=== PATIENT | male | born 1950 | race Caucasian/White ===

== ENCOUNTER 2024-10-22 06:34 | Emergency (ER) | payer OTHER, MEDICARE, SELFPAY ==
[2024-10-22 06:49] VITALS: BP 133/90; PULSE 85; RESP 16; TEMP 36.4; O2SAT 96; BMI 30.7
--- NOTE | 2024-10-22 07:16 | ED_ITS ---
HPI - General Adult General Chief complaint: Back Injury/Pain Stated complaint: back ache Time Seen by Provider: 10/22/24 06:59 History of Present Illness HPI narrative: 3 weeks of back pain, thinks he maybe twisted it wrong. [place]ray and Medrol dose pack. pain has gotten worse, worse with bending and moving. denies falls, does not radiate down legs. mostly in the R lower but occasionally shoots across to the L. patient with hx of parkinsons. 73-year-old man presenting to the emergency department with concern of low back pain. Does have a history of Parkinson's. Has been trying acetaminophen and Voltaren gel. Lidocaine patches. Just completed a course of what sounds like a Medrol Dosepak. It seems to radiate across the low back. Symptoms do not radiate into the buttock or down his legs. Worse with movement. Sitting for too long images as a get up and move. What he is mentioning frequently is a sudden intense pulse of pain. No hematuria or dysuria. No trauma. Related Data Home Medications ?Medication ?Instructions ?Recorded ?Confirmed atorvastatin 20 mg tablet 20 mg PO DAILY 10/22/24 10/22/24 carbidopa ER 48.75 mg-levodopa 195 3 cap PO TID 10/22/24 10/22/24 mg capsule,extended release carbidopa ER 50 mg-levodopa 200 mg 1 tab PO QHS 10/22/24 10/22/24 tablet,extended release chlorthalidone 12.5 mg tablet 12.5 mg PO DAILY 10/22/24 10/22/24 docusate sodium 100 mg capsule 100 mg PO DAILY 10/22/24 10/22/24 lisinopril 20 mg tablet 20 mg PO DAILY 10/22/24 10/22/24 melatonin 3 mg capsule 3 mg PO HS PRN 10/22/24 10/22/24 metoprolol succinate 50 mg capsule 50 mg PO DAILY 10/22/24 10/22/24 sprinkle, ext. release 24 hr tizanidine 2 mg capsule 2 mg PO QHS PRN 10/22/24 10/22/24 Allergies Allergy/AdvReac Type Severity Reaction Status Date / Time No Known Drug Allergies Allergy Verified 10/22/24 06:53 Review of Systems Status of ROS: Reports: 6 or more systems reviewed and unremarkable except as noted in History and below [facility] Social History Non-prescribed substance use: denies use Exam Narrative: Exam Narrative: Pleasant. Little tremulous. Restless. Breathing easily. No deformity to back. Abdomen is soft nontender. Negative straight leg raise. Well-perfused peripherally without edema. Massiel's negative. Tenderness described in the area of the right SI joint and across. Heart in regular rate. Demonstrating intermittent spasms of pain. Const: Vital Signs, click to edit/add: Vital Signs - 24 hr 10/22/24 06:49 Temperature 97.6 F Pulse Rate [Pulse Oximeter] 85 Respiratory Rate 16 Blood Pressure [Ri t Upper Arm] 133/90 H Pulse Oximetry 96 Oxygen Delivery Me thod Room Air Documenting provider has reviewed patient's vital signs: yes Course Vital Signs Vital signs: Initial Vital Signs Temperature 97.6 F 10/22/24 06:49 Temperature Source Temporal Artery Scan 10/22/24 06:49 Pulse Rate 85 10/22/24 06:49 Respiratory Rate 16 10/22/24 06:49 Blood Pressure 133/90 H 10/22/24 06:49 Blood Pressure Mean 104 10/22/24 06:49 Blood Pressure Position Standing 10/22/24 06:49 Pulse Oximetry 96 10/22/24 06:49 Oxygen Delivery Method Room Air 10/22/24 06:49 Vital Signs Temperature 97.6 F 10/22/24 06:49 Pulse Rate 85 10/22/24 06:49 Respiratory Rate 16 10/22/24 06:49 Blood Pressure 133/90 H 10/22/24 06:49 Pulse Oximetry 96 10/22/24 06:49 Oxygen Delivery Method Room Air 10/22/24 06:49 Temperature 97.6 F 10/22/24 06:49 Pulse Rate 85 10/22/24 06:49 Respiratory Rate 16 10/22/24 06:49 Blood Pressure 133/90 H 10/22/24 06:49 Pulse Oximetry 96 10/22/24 06:49 Oxygen Delivery Method Room Air 10/22/24 06:49 Medications Administered Medications: Discontinued Medications Generic Name Dose Route Start Last Admin Trade Name Freq PRN Reason Stop Dose Admin Hydrocodone Bitart/Acetaminophen 2 tab 10/22/24 07:27 10/22/24 07:52 Hydrocodone-Acetamin 5-325 Mg 1 Tab PO 10/22/24 07:28 2 tab ONCE ONE Administration Medical Decision Making MDM Narrative Medical decision making narrative: I think is likely experiencing some muscle spasms possibly brought on by SI joint inflammation. May have some underlying discogenic disease however as well. I suppose spontaneous/occult lumbar spine fracture? Symptoms do seem more in the back than suggestive of ureteral stone or urinary tract infection. Think it would be helpful to have some lumbar imaging given intensity of symp toms. Has tried a number of options outpatient. Given 2 tabs of [place] for later reassessment. I requested CT of the low back. I did review these images. Radiology over-read below INDICATION: Low back pain. COMPARISON: None. TECHNIQUE: Noncontrast CT lumbar spine. FINDINGS: Normal vertebral body alignment. No fractures. No vertebral body loss of height. No spondylolisthesis. No fractures of the visualized lower ribs. T12-L1 L1-2 L2-3: No spinal canal or neural foraminal narrowing. L3-4: Mild disc generation posted disc bulge. No narrowing of the spinal canal. No neural foraminal narrowing. L4-5: Disc degeneration loss disc height. Diffuse disc bulge and endplate osteophytic ridging. No narrowing of spinal canal. Moderate narrowing of the right neural foramen. No narrowing of the left neural foramen. Mild facet arthropathy. L5-S1: Disc degeneration. Posterior disc bulge. No narrowing of the spinal canal. No impingement of the traversing S1 nerve roots. No neural foraminal narrowing. Mild facet arthropathy. Degenerative changes of the SI joints. No presacral edema inflammation. Vascular calcifications. Normal paraspinal soft tissues. IMPRESSION: 1. Normal alignment. No fractures 2. Lumbar spondylosis 3. At L4-5, disc degeneration. Diffuse disc bulge and endplate osteophytic ridging. No narrowing of the spinal canal. Moderate narrowing of the left neural foramen 4. No spinal canal or neural foraminal narrowing at the remaining levels Please note that all CT scans at this facility use dose modulation, iterative reconstruction, and/or weight-based dosing when appropriate to reduce radiation dose to as low as reasonably achievable. Dictated by Enrico Li MD @ 10/22/2024 7:57:54 AM Overall improved on reassessment though still with some discomfort. Discussed findings in imaging. See patient discharge plan for further discussion He can continue with regular dosing of your to is an of the in if needed as long is not making you too tired. Can take up to 1000 mg of acetaminophen per dose. Can take up to 800 mg of ibuprofen per dose but probably not long-term. Both of these can be combined. Prescribing some [place] as discussed. This is an opiate and as such can make you tired. It also contains in each tablet 325 mg of acetaminophen. You might continue with the lidocaine patches or topical pain creams; hopefully everything in combination will be helpful. Please take copy of this disc with you to your next appointment. Also copy of radiology over-read. See handout on sacroiliac joint pain. If you wanted to follow-up with a chiropractor I think that is certainly reasonable. Otherwise also I would consult with physical therapy. It is possible that this bulging disc is contributing to your symptoms as well. However does not appear to be impinging on nerve that would often cause shooting pain into your legs. On the days that you might be taking the [place] for opiate, would consider taking 1 or 2 tabs of senna containing laxative to help stimulate your bowels. Discharge Plan Discharge Clinical Impression: Low back pain, Bulging lumbar disc, Sacroiliac joint pain Patient Disposition: Home w/ Parent or Adult Condition: Improved Additional Instructions: He can continue with regular dosing of your to is an of the in if needed as long is not making you too tired. Can take up to 1000 mg of acetaminophen per dose. Can take up to 800 mg of ibuprofen per dose but probably not long-term. Both of these can be combined. Prescribing some [place] as discussed. This is an opiate and as such can make you tired. It also contains in each tablet 325 mg of acetaminophen. You might continue with the lidocaine patches or topical pain creams; hopefully everything in combination will be helpful. Please take copy of this disc with you to your next appointment. Also copy of radiology over-read. See handout on sacroiliac joint pain. If you wanted to follow-up with a chiropractor I think that is certainly reasonable. Otherwise also I would consult with physical therapy. It is possible that this bulging disc is contributing to your symptoms as well. However does not appear to be impinging on nerve that would often cause shooting pain into your legs. On the days that you might be taking the [place] for opiate, would consider taking 1 or 2 tabs of senna containing laxative to help stimulate your bowels. Prescriptions: No Action atorvastatin 20 mg tablet 20 mg PO DAILY carbidopa-levodopa 48.75-195 mg capsule, extended release 3 cap PO TID Rx Instructions: divide evenly over waking hours carbidopa-levodopa 50-200 mg tablet extended release 1 tab PO QHS chlorthalidone 12.5 mg tablet 12.5 mg PO DAILY lisinopril 20 mg tablet 20 mg PO DAILY melatonin 3 mg capsule 3 mg PO HS PRN metoprolol succinate 50 mg capsule,sprinkle,ER 24hr 50 mg PO DAILY tizanidine 2 mg capsule 2 mg PO QHS PRN docusate sodium 100 mg capsule 100 mg PO DAILY Follow Up/Referrals: Provider,Not a Local [Primary Care Provider] - Stand Alone Forms: [employer] Info Instructions
--- NOTE | 2024-10-22 07:27 | CRLHL7_ITS ---
For Patients: As a result of the Century Cures Act, medical imaging exams and procedure reports are released immediately into your electronic medical record. You may view this report before your referring provider. If you have questions, please contact your health care provider. INDICATION: Low back pain. COMPARISON: None. TECHNIQUE: Noncontrast CT lumbar spine. FINDINGS: Normal vertebral body alignment. No fractures. No vertebral body loss of height. No spondylolisthesis. No fractures of the visualized lower ribs. T12-L1 L1-2 L2-3: No spinal canal or neural foraminal narrowing. L3-4: Mild disc generation posted disc bulge. No narrowing of the spinal canal. No neural foraminal narrowing. L4-5: Disc degeneration loss disc height. Diffuse disc bulge and endplate osteophytic ridging. No narrowing of spinal canal. Moderate narrowing of the right neural foramen. No narrowing of the left neural foramen. Mild facet arthropathy. L5-S1: Disc degeneration. Posterior disc bulge. No narrowing of the spinal canal. No impingement of the traversing S1 nerve roots. No neural foraminal narrowing. Mild facet arthropathy. Degenerative changes of the SI joints. No presacral edema inflammation. Vascular calcifications. Normal paraspinal soft tissues. IMPRESSION: 1. Normal alignment. No fractures 2. Lumbar spondylosis 3. At L4-5, disc degeneration. Diffuse disc bulge and endplate osteophytic ridging. No narrowing of the spinal canal. Moderate narrowing of the left neural foramen 4. No spinal canal or neural foraminal narrowing at the remaining levels Please note that all CT scans at this facility use dose modulation, iterative reconstruction, and/or weight-based dosing when appropriate to reduce radiation dose to as low as reasonably achievable. Dictated by Enrico Li MD @ 10/22/2024 7:57:54 AM (Electronically Signed)
[2024-10-22] MEDS: HYDROCODONE-ACETAMIN 5-325 MG 1 TAB 2 TAB PO (07:52)
--- OUTSIDE RECORDS SUMMARY | 2024-10-22 08:10 | XMS_ITS | Encounter Summary ---
Author Name [facility] [place] [facility] [place] Address [address] [place] [address] Care Team Providers Care Dance Historian Name Role Phone MELITON DOMINGUEZ Primary Care Provider Unavailabl e Insurance Providers: All historical and current Section Date Range: From patient's date of to the date document was created. This section includes the names of all active insurance providers for the patient. Insurance Provider Type of Coverage Plan Name Start of Policy Coverage End of Policy Coverage Group Number Member ID Insurance Provider's Telephone Number Policy Hood's Name Patient's Relationship to Policy Hood MEDICARE (WNR) MEDICARE (M) PART A Dec 10, 2017 PART A [id number] [phone] LERUM,ELENI D PATIENT MEDICARE (WNR) MEDICARE (M) PART A Dec 10, 2017 PART A [id number] [phone] LERUM,ELENI D PATIENT MEDICARE (WNR) MEDICARE (M) PART B Dec 10, 2017 PART B [id number] [phone] LERUM,ELENI D PATIENT MEDICARE (WNR) MEDICARE (M) PART A Dec 10, 2017 PART A [id number] [phone] LERUM,ELENI D PATIENT MEDICARE (WNR) MEDICARE (M) PART B Dec 10, 2017 PART B [id number] [phone] LERUM,ELENI D PATIENT MEDICARE (WNR) MEDICARE (M) PART B Dec 10, 2017 PART B [id number] [phone] LERUM,ELENI D PATIENT MEDICARE (WNR) MEDICARE (M) PART A Dec 10, 2017 PART A [id number] [phone] LERUM,ELENI D PATIENT MEDICARE (WNR) MEDICARE (M) PART B Dec 10, 2017 PART B [id number] [phone] LERUM,ELENI D PATIENT Selected Encounter This section includes the information on record at [place] for the Encounter. Date/Time Encounter Type Encounter Description Reason Provider Source Sep 11, 2024 04:21 PM NQHP OL DIG ASSMT&MGMT 5-10 CLINICAL PHARMACY ICD-10-CM G20.B2 Parkinson's disease with dyskinesia, with fluctuations FELICITA VANN [facility] Encounter Template Text not used by [place] Assessments - Encounter Diagnoses This section includes the primary and secondary diagnoses documented for the Encounter. Date/Time Primary/Secondary Diagnosis Diagnosis Name Provider Source Sep 11, 2024 04:30 PM PRIMARY Parkinson's disease with dyskinesia, with fluctuations FELICITA VANN [facility] Plan of Treatment: Future Appointments (+ 6 months) and Future Tests (+/- 45 days) The Plan of Treatment section includes future care activities for the patient [facility] [place] [facility] This section includes future appointments and future orders which are active, pending or scheduled. Future Appointments This section includes appointments that were scheduled to occur 6 months from the date of the Encounter, up to a maximum of 20 appointments. The data comes from all [place] treatment facilities. Appointment Date/Time Appointment Type Appointme nt Facility Name Sep 19, 2024 02:00 PM AMBULATORY - REHAB MEDICIN E [facility] Oct 03, 2024 10:00 [facility] Oct 07, 2024 10:00 AM AMBULATORY - REHAB MEDICIN E [facility] October 15, 2024 03:00 PM AMBULATORY - MEDICINE [facility] October 18, 2024 10:30 AM AMBULATORY - SURGERY [facility] October 25, 2024 10:00 AM AMBULATORY - MEDICINE [facility] October 29, 2024 01:30 PM AMBULATORY - REHAB MEDICIN E [facility] Nov 13, 2024 09:00 AM AMBULATORY - REHAB MEDICIN [facility] Dec 26, 2024 01:30 PM AMBULATORY - NEUROLOGY [facility] Jan 27, 2025 09:30 AM AMBULATORY - REHAB MEDICIN E [facility] Social History: Smoking Status (Most current) and Tobacco Use (All prior to encounter date) This section includes the most current, and the historical, smoking and tobacco- related health factors from the [place] facility where the Encounter took place. Current Smoking Status This section includes the most current smoking, or tobacco-related health factor, from the [place] facility where the Encounter took place. Date/Time Current Smoking Status Comment Facil ity Mar 20, 2024 11:00 AM VA-TOBACCO FORMER USER [facility] Tobacco Use History This section includes a history of the smoking, or tobacco-related health factors, that were collected on or before the date of the Encounter. The data comes from the [place] facility where the Encounter took place. Date/Time Smoking Status/Tobacco Use Comment F acility Mar 20, 2024 11:00 AM VA-TOBACCO QUIT 15 YRS OR MORE [facility] Jan 18, 2023 10:00 AM VA-TOBACCO FORMER USER [facility] Jan 18, 2023 10:00 AM VA-TOBACCO QUIT 15 YRS OR MORE [facility] Jan 19, 2022 01:00 PM VA-TOBACCO FORMER USER [facility] Jan 19, 2022 01:00 PM VA-TOBACCO QUIT 15 YRS OR MORE [facility] Apr 16, 2021 03:30 PM VA-TOBACCO FORMER USER [facility] Apr 16, 2021 03:30 PM VA-TOBACCO QUIT 15 YRS OR MORE [facility] Mar 11, 2020 09:00 AM VA-TOBACCO FORMER USER [facility] Mar 11, 2020 09:00 AM VA-TOBACCO QUIT 15 YRS OR MORE [facility] Radiology Reports: +/- 30 days of the encounter Radiology Reports For cases when an order for radiology services may have been completed prior to the date of the Encounter, the report list includes the Radiology Reports that were completed up to 30 days before dateof the Encounter. For cases when an order for radiology services may have been completed after the date of the Encounter, the report list also includes the Radiology Reports that were completed up to30 days after date of the Encounter. The data comes from all [place] treatment facilities. Date/Time Radiology Report Provider Source Oct 03, 2024 10:06 AM US AORTA (P): REED WALLACE [id number] -[id number] M Exm Date: OCT 03, 2024@10:06 Req Phys: MELITON DOMINGUEZ Loc: [facility]ARY JO Doretha (Req'g Loc) Img Loc: Ultrasound Imaging Service: [place] [address] (Case [id number] COMPLETE) US RETROPERITONEAL LIMITED (US Detailed) CPT:96045 Reason for Study: f/u illiac aneurysm Clinical History: [place] IS NOT under investigation for COVID-19 or is COVID-19 negative f/u illiac aneurysm for interval change Responsible provider name and phone number to notify for critical findings if other than user placing the order and pager listed below: User placing orders pager: [phone] LAST CREATININE 0.7 (08/22/23) Report Status: Verified Date Reported: OCT 03, 2024 Date Verified: OCT 03, 2024 Valve Setter E-Sig:/ES/DORINDA PLATA Report: Abdominal Aorta Ultrasound Examination (follow-up) Comparison study: Ultrasound 10/03/2023, 01/19/2022, and 03/25/2020. History: Follow-up iliac aneurysm. Findings: AP measurements obtained on the longitudinal images. Proximal (suprarenal): 3.2 cm. Mid (infrarenal): 2.5 cm. Distal: 2.4 cm. Right BRANDO: 2.2 cm. Left BRANDO: 1.8 cm. Impression: 1. Maximum infrarenal aortic diameter is 2.5 cm, previously 2.8 cm. This is not aneurysmal. 2. Maximum right BRANDO diameter is 2.2 cm, previously 2.2 cm. This is aneurysmal. 3. Maximum left BRANDO diameter is 1.8 cm, previously 1.9 cm. This is aneurysmal. THE REPORT OF THE PATIENT'S FINDINGS ENDS HERE. Recommendations from the [place] Vascular Surgery Department, updated 2023: Small infrarenal abdominal aortic aneurysms (AAA), less than 5.0 cm in diameter, should be followed by the primary provider until the aneurysm reaches 5.0 cm. AAA 3.0 cm - 3.9 cm Ultrasound every 3 years AAA 4.0 cm - 4.9 cm Ultrasound every 1 year AAA 5.0 cm or greater, CTA with contrast and vascular consult Iliac artery aneurysms: Iliac aneurysms should be followed by the primary provider until they reach 3.5 cm. Iliac aneurysm - < 3.0 cm ultrasound every 12 months Iliac aneurysm - 3.0 - 3.5 cm ultrasound every 6 months Iliac aneurysm - 3.5 cm or greater, CTA with contrast and refer to Vascular Surgery * Ascending thoracic aortic aneurysms are managed by cardiothoracic surgery * The presence of thrombus in the aneurysm is expected and does not change the recommendations IDorinda, have reviewed the images and report. Report Sign Date/Time: 10/03/2024 11:30 AM Primary Interpreting Staff: DORINDA PLATA, RADIOLOGIST (Valve Setter) Primary Interpreting Resident: ANIYAH HAIDER DO, MANUFACTURERS SERVICE REPRESENTATIVE /DORINDA THOMAS [facility] Encounter Notes: All associated encounter notes This section contains the clinical notes associated to the Encounter. Date/Time Encounter Note(s) Provider Source Sep 11, 2024 04:21 PM PHARMACY CONSULT: LOCAL TITLE: PHARMACY PRIOR AUTHORIZATION APPROVED CONSULT STANDARD TITLE: PHARMACY CONSULT DATE OF NOTE: SEP 11, 2024@16:21 ENTRY DATE: SEP 11, 2024@16:21:35 AUTHOR: EUNICE VANN COSIGNER: URGENCY: STATUS: COMPLETED The medical record has been reviewed with regard to this prior authorization drug request. Medication requested: CARBIDOPA 48.75MG/LEVODOPA 195MG SA CAP Medication indication: PARKINSON'S DISEASE Medical history relevant to this request: Indication: inconsistent response; left leg focal dystonic Previous: carbidopa-levodopa and entacapone requiring dosing every 2 hours. PER NEUROLOGY NOTE: Plan: - stop entacapone and carbidopa-levodopa during day - start Rytary, will place prior-authorization and mail prescription once approved; dose 4 times daily - continue bedtime dose of Carbidopa/Levodopa 50mg/200mg - return to clinic in 3 months The request is approved - A documented therapeutic failure of the preferred formulary alternative(s) exists Active Outpatient Medications (including Supplies): ATORVASTATIN CALCIUM 20MG TAB TAKE ONE TABLET BY MOUTH AT ACTIVE BEDTIME Indication: FOR CHOLESTEROL CARBIDOPA 25/LEVODOPA 250MG TAB TAKE 1 TABLET BY MOUTH ACTIVE FIVE TIMES A DAY CARBIDOPA 50/LEVODOPA 200MG SA TAB TAKE 1 TABLET BY MOUTH ACTIVE AT BEDTIME Indication: FOR PARKINSON DISEASE CARBIDOPA/LEVODOPA CAP,SA TAKE 3 CAPSULES BY MOUTH THREE PENDING TIMES A DAY Indication: FOR PARKINSON DISEASE CHLORTHALIDONE 25MG TAB TAKE ONE-HALF TABLET BY MOUTH ACTIVE EVERY MORNING Indication: FOR BLOOD PRESSURE CLINDAMYCIN PHOSPHATE 1% LOTION APPLY TO AFFECTED AREA ACTIVE TOPICALLY TWICE A DAY Indication: FOR RASH UNTIL RESOLVED DOCUSATE NA 100MG CAP TAKE TWO CAPSULES BY MOUTH TWICE A ACTIVE DAY Indication: FOR CONSTIPATION ENTACAPONE 200MG TAB TAKE ONE TABLET BY MOUTH FIVE TIMES A ACTIVE DAY - TAKE WITH EACH DOSE OF CARBIDOPA 25/LEVODOPA 250MG TABLETS LIDOCAINE 5% PATCH APPLY 1 PATCH TOPICALLY EVERY DAY ACTIVE NEEDED - PLACE ON RIGHT SHOULDER Indication: FOR UP TO 12 HOURS FOR PAIN LISINOPRIL 20MG TAB TAKE ONE TABLET BY MOUTH EVERY DAY ACTIVE Indication: FOR BLOOD PRESSURE MELATONIN 3MG CAP/TAB TAKE 3 TABLETS BY MOUTH AT BEDTIME ACTIVE Indication: FOR SLEEP METOPROLOL SUCCINATE 50MG SA TAB TAKE ONE TABLET BY MOUTH ACTIVE EVERY DAY Indication: FOR BLOOD PRESSURE POLYETHYLENE GLYCOL 3350 ORAL PWDR TAKE 17 GRAMS BY MOUTH ACTIVE THREE TIMES A WEEK Indication: FOR CONSTIPATION TIZANIDINE HCL 2MG TAB TAKE ONE TABLET BY MOUTH EVERY ACTIVE EVENING AND TAKE ONE TABLET EVERY EVENING NEEDED Indication: FOR DYSTONIA UREA 20% CREAM APPLY THIN LAYER TOPICALLY AT BEDTIME ON ACTIVE RIGHT FOOT Indication: FOR CALLUSES VANICREAM TOP CREAM APPLY THIN LAYER TOPICALLY EVERY DAY ACTIVE IDEALLY WITHIN 3 MINUTES AFTER BATH OR SHOWER. Indication: FOR DRY SKIN /es/ EUNICE VANN Pharm.D. Signed: 09/11/2024 16:30 EUNICE VANN [facility]
--- OUTSIDE RECORDS SUMMARY | 2024-10-22 08:11 | XMS_ITS | Encounter Summary ---
Author Name [facility] [place] [facility] [place] [facility] [place] Address [address] [place] [address] Care Team Providers Care Dry Paste Supervisor Name Role Phone MELITON DOMINGUEZ Primary Care [...] PART A Dec 10, 2017 PART A [id number] LERUM,ELENI D PATIENT MEDICARE (WNR) MEDICARE (M) PART B Dec 10, 2017 PART B [id number] LERUM,ELENI D PATIENT MEDICARE (WNR) MEDICARE (M) PART A Dec 10, 2017 PART A [id number] LERUM,ELENI D PATIENT MEDICARE (WNR) MEDICARE (M) PART B Dec 10, 2017 PART B [id number] [phone] LERUM,ELENI D PATIENT MEDICARE (WNR) MEDICARE (M) PART A Dec 10, 2017 PART A [id number] LERUM,ELENI D PATIENT MEDICARE (WNR) MEDICARE (M) PART B Dec 10, 2017 PART B [id number] LERUM,ELENI D PATIENT MEDICARE (WNR) MEDICARE (M) PART A Dec 10, 2017 PART A [id number] [phone] LERUM,ELENI D PATIENT MEDICARE (WNR) MEDICARE (M) PART B Dec 10, 2017 PART B [id number] [phone] LERUM,ELENI D PATIENT Selected Encounter This section includes the information on record at [place] for the Encounter. Date/Time Encounter Type Encounter Description Reason Provider Source October 21, 2024 12:48 PM OFFICE O/P EST HI 40 MIN OPHTHALMOLOGY ICD-10-CM Z01.01 Encounter for exam of eyes and vision w abnormal findings KRIS SOLORZANO MD [facility] Encounter Template Text not used by [place] Assessments - Encounter Diagnoses This section includes the primary and secondary diagnoses documented for the Encounter. Date/Time Primary/Secondary Diagnosis Diagnosis Name Provider Source October 21, 2024 02:13 PM PRIMARY Encounter for exam of eyes and vision w abnormal findings KRIS SOLORZANO MD [facility] October 21, 2024 02:13 PM SECONDARY Age-related nuclear cataract, bilateral KRIS SOLORZANO MD [facility] October 21, 2024 02:13 PM SECONDARY Drusen (degenerative) of macula, unspecified eye KRIS SOLORZANO MD [facility] October 21, 2024 02:13 PM SECONDARY Hypermetropia, bilateral KRIS SOLORZANO MD [facility] October 21, 2024 02:13 PM SECONDARY Presbyopia KRIS SOLORZANO MD [facility] October 21, 2024 02:13 PM SECONDARY Unsp lagophthalmos unspecified eye, unspecified eyelid KRIS SOLORZANO MD [facility] October 21, 2024 02:13 PM SECONDARY Unspecified astigmatism, bilateral KRIS SOLORZANO MD [facility] October 21, 2024 02:13 PM SECONDARY Unspecified blepharitis unspecified eye, unspecified eyelid KRIS SOLORZANO MD [facility] October 21, 2024 02:13 PM SECONDARY Unspecified ectropion of unspecified eye, unspecified eyelid KRIS SOLORZANO MD [facility] Plan of Treatment: Future Appointments (+ 6 months) and Future Tests (+/- 45 days) The Plan of Treatment section includes future care activities for the patient from all [place] [facility] This section includes future appointments and future orders which are active, pending or scheduled. Future Appointments This section includes appointments that were scheduled to occur 6 months from the date of the Encounter, up to a maximum of 20 appointments. The data comes from all [facility]. Appointment Date/Time Appointment Type Appointme nt Facility Name October 25, 2024 10:00 AM AMBULATORY - MEDICINE [facility] October 29, 2024 01:30 PM AMBULATORY - REHAB MEDICIN E [facility] Nov 13, 2024 09:00 AM AMBULATORY - REHAB MEDICIN [facility] Dec 26, 2024 01:30 PM AMBULATORY - NEUROLOGY [facility] Jan 27, 2025 09:30 AM AMBULATORY - REHAB MEDICIN [facility] Active, Pending, and Scheduled Orders This section includes a listing of several types of active, pending, and scheduled orders, including clinic medications orders, diagnostic test orders, procedure orders and consult orders; where the start date of the order is 45 days before the date of the Encounter or 45 days after the date of theEncounter. The data comes from all [facility]. Test Date/Time Test Type Test Details Facility Name Nov 15, 2024 12:00 AM Laboratory - Chemi stry Order CBC & DIFF BLOOD SP ONCE [facility] Nov 15, 2024 12:00 AM Laboratory - Chemi stry Order LIPID PANEL,NON-FASTING [facility] Nov 15, 2024 12:00 AM Laboratory - Chemi stry Order BASIC METABOLIC PANEL+MG PLASMA [facility] Social History: Smoking Status (Most current) and Tobacco Use (All prior to encounter date) This section includes the most current, and the historical, smoking and tobacco- related health factors from the [place] facility where the Encounter took place. Current Smoking Status This section includes the most current smoking, or tobacco-related health factor, from the [place] facility where the Encounter took place. Date/Time Current Smoking Status Comment Facil ity Mar 20, 2024 11:00 AM VA-TOBACCO FORMER USER [facility] Tobacco Use History This section includes a history of the smoking, or tobacco-related health factors, that were collected on or before the date of the Encounter. The data comes from the [place] facility where the Encounter took place. Date/Time Smoking Status/Tobacco Use Comment F acility Mar 20, 2024 11:00 AM VA-TOBACCO QUIT 15 YRS OR MORE [facility] Jan 18, 2023 10:00 AM VA-TOBACCO FORMER USER [facility] Jan 18, 2023 10:00 AM VA-TOBACCO QUIT 15 YRS OR MORE [facility] Jan 19, 2022 01:00 PM VA-TOBACCO FORMER USER [facility] Jan 19, 2022 01:00 PM VA-TOBACCO QUIT 15 YRS OR MORE [facility] Apr 16, 2021 03:30 PM VA-TOBACCO FORMER USER [facility] Apr 16, 2021 03:30 PM VA-TOBACCO QUIT 15 YRS OR MORE [facility] Mar 11, 2020 09:00 AM VA-TOBACCO FORMER USER [facility] Mar 11, 2020 09:00 AM VA-TOBACCO QUIT 15 YRS OR MORE [facility] Radiology Reports: +/- 30 days of the [...] the Encounter. The data comes from all [place] treatment facilities. Date/Time Radiology Report Provider Source October 15, 2024 03:22 PM LUMBAR SPINE MIN 4 VIEWS: REED WALLACE [id number] -[id number] M Exm Date: OCTOBER 15, 2024@15:22 Req Phys: DOMINGUEZ,MELITON H Pat Loc: [facility] PACT IVORY 4E (Req'g Loc) Img Loc: MAIN X-RAY Service: [place] [address] (Case [id number] COMPLETE) LUMBAR SPINE MIN 4 VIEWS (RAD Detailed) CPT:39261 Reason for Study: severe LBP Clinical History: h/o parkinson, c/o severe low back pain, left sided radiating across the back. No recall of injury. Please justin pt is waiting in clinic My pager number on record is: [phone]. I confirm that the pager number/cell phone number above is correct for reporting critical results. Trainees only: Enter your staff provider's info here: LAST CREATININE 0.7 (03/20/24) Report Status: Verified Date Reported: OCTOBER 15, 2024 Date Verified: OCTOBER 15, 2024 Chemical Process Project Engineer E-Sig:/ES/WERNER SY MD Report: EXAMINATION: LUMBAR SPINE MIN 4 VIEWS 10/15/2024 3:22 PM INDICATION: severe LBP Impression: Degenerative changes and narrowing of the lower lumbar facet joints. Degenerative disc disease with moderate loss of interspace height at L4-5. Mild/moderate loss of interspace height at L3-4 and L5-S1. Slight/mild interbody bony spurring. Slight retrolisthesis of L1 on L2 and L2 on L3. No compression fractures. SI joints are unremarkable. Aortic calcification. Report Sign Date/Time: 10/15/2024 3:46 PM Primary Interpreting Staff: WERNER SY MD, RADIOLOGIST (Chemical Process Project Engineer) /RTS WERNER SY [facility] Oct 03, 2024 10:06 AM US AORTA (P): REED WALLACE [id number] -[id number] M Exm Date: OCT 03, 2024@10:06 Req Phys: MELITON DOMINGUEZ Pat Loc: [facility] (Req'g Loc) Img Loc: Ultrasound Imaging Service: [place] [address] (Case [id number] COMPLETE) US RETROPERITONEAL LIMITED (US Detailed) CPT:00952 Reason for Study: f/u illiac aneurysm Clinical History: IS NOT under investigation for COVID-19 or is COVID-19 negative f/u illiac aneurysm for interval change Responsible provider name and phone number to notify for critical findings if other than user placing the order and pager listed below: User placing orders pager: [phone] LAST CREATININE 0.7 (08/22/23) Report Status: Verified Date Reported: OCT 03, 2024 Date Verified: OCT 03, 2024 Chemical Process Project Engineer E-Sig:/ES/DORINDA PLATA Report: Abdominal Aorta Ultrasound Examination [...] PATIENT'S FINDINGS ENDS HERE. Recommendations from the [place] Vascular Surgery Department, updated 2023: Small infrarenal [...] AM Primary Interpreting Staff: DORINDA PLATA, RADIOLOGIST (Chemical Process Project Engineer) Primary Interpreting Resident: ANIYAH HAIDER DO, BINDER ROLLER /DORINDA THOMAS [facility] Encounter Notes: All associated encounter notes This section contains the clinical notes associated to the Encounter. Date/Time Encounter Note(s) Provider Source October 21, 2024 02:15 PM LETTERS: LOCAL TITLE: EYE TECS LETTERS STANDARD TITLE: LETTERS DATE OF NOTE: OCTOBER 21, 2024@14:15 ENTRY DATE: OCTOBER 21, 2024@14:15:27 AUTHOR: KRIS SOLORZANO MD EXP COSIGNER: URGENCY: STATUS: COMPLETED October REED WALLACE [facility] [place], [place] [address] Dear REED WALLACE, Thank you for your recent visit to the Virtual Eye Care Services (VECS) Program visit at your [facility] facility. The main goal of the VECS program is to screen for visually significant eye conditions. Based on the review of your eye information and the photos that were taken, we recommend an in-person follow-up evaluation by an eye care provider in the Ophthalmology Section at the [facility] within 3 months (sooner as needed). We encourage you to review the results and recommendations from this visit by logging into My [employer] at [email or web address] or by requesting them through your [facility] Medical Records/Release of Information office. Please call the eye clinic with any questions about your visit. You will receive a phone call from one of the VA staff to schedule a follow-up evaluation. If you do not hear from the VA within the next week regarding scheduling your appointment, please call them. You can reach the Eye Clinic through the number [phone]. You can also call the main number [phone], then '0', and ask the haulage engine operator to connect you to the eye clinic. If you notice any sudden changes in your vision, flashes, floaters, curtains, loss of vision, double vision, pain, redness, discharge, change in color vision, difficulty with night vision, visual disturbances, tearing, blacking out of vision, any problems or symptoms, we recommend that you return to eye clinic or go to emergency room immediately (same day). If you are a tobacco user, [place] provides cessation services which can reduce the risk of eye disease as well as risks to your overall health. Please discuss with your [facility] Primary Care team for more information. If you have been seen by a non-VA eye care provider, please bring your records to your next [facility] appointment. Please try to keep your follow-up VA eye appointment or notify us if you cannot attend so that you may be rescheduled within a timely manner. Your health is important to us. Please note that the VECS (virtual eye care services) eye exam is not a substitute for the in person comprehensive eye exam. Comprehensive in person eye exams are recommended. Please continue [id number] in person comprehensive eye exams as well. Please also continue care with your primary doctor and your regular care team providers. We appreciate the opportunity to serve you. Thank you for your service to our country. KRIS SOLORZANO MD [facility] October 21, 2024 01:11 PM TELEHEALTH NOTE: LOCAL TITLE: OPHTHALMOLOGY/OPTOMETRY EYE TECS PROVIDER CONSULT STANDARD TITLE: TELEHEALTH NOTE DATE OF NOTE: OCTOBER 21, 2024@13:11 ENTRY DATE: OCTOBER 21, 2024@13:11:36 AUTHOR: KRIS SOLORZANO MD EXP COSIGNER: URGENCY: STATUS: COMPLETED OPHTHALMOLOGY/OPTOMETRY EYE TECS PROVIDER CONSULT Has ADDENDA TECS Cloth Inspector Note: 10/18/2024 10:57 Local Title: EYE TECS STOCK CAR DRIVER Standard Title: TELEHEALTH NOTE Technology-based Eye Care Services (TECS) Cloth Inspector Note REED WALLACE KAREN [id number] Telehealth Consent and Patient Identification Verification: Verified patient identity with 2 separate identifiers prior to the beginning of the visit: Yes Patient was informed that their information and images will be uploaded securely to the [employer] computer system and sent to be remotely interpreted by an eye provider. Recommendations/findings will be conveyed to them via phone call, video chat, and/or letter. Yes Patient verbalized understanding and agreed to participate in the TECS telemedicine eye exam today. Yes TECS Visit Type: Screening and Vision Assessment: Program Exclusions: - Sudden (1 week or less) decrease in vision in either eye - Sudden onset of significant pain (greater than 8 out of 10) in either eye - Sudden (1 week or less) onset of increased light sensitivity in either eye. - Sudden (1 week or less) of new floaters, flashing lights, or loss of peripheral vision - Sudden (1 week or less) onset of double vision that does not go away when one eye is covered - Recent (in last month) eye surgery or trauma No exclusions identified COMPREHENSIVE SCREEN: HISTORY: Chief Complaint: TECS Screening; pt states no vision changes; Denies floaters/flashes; No pain/discomfort OU; History of Present Illness: hx CLARA OU / hx Drusen OU / cataracts OU *Alert/oriented x 3 Last Eye Exam: 1-2 years ago Location of last eye exam: [facility] Type of eye exam: TECS TECS HISTORY & REVIEW OF SYSTEMS No pain, decreased vision, sudden change in flashes or floaters, or sudden onset double vision. DIABETES HISTORY: The patient does NOT have diabetes EYE DISEASE(S) HISTORY: Tecs Cloth Inspector 10/20/2022 TECS Eye Disease History-Cataracts TECS Eye Disease History-Epiretinal Membrane TECS Eye Disease History-Mac Degen Dry EYE PROCEDURE(S) HISTORY: No data available TRAUMA HISTORY: No history of ocular trauma FAMILY HISTORY No family history of glaucoma, macular degeneration, or blindness. SOCIAL HISTORY: No data available Additional Social History Information: Not actively smoking MEDICATION HISTORY: No data available REFRACTION AND VISION: Wearing Rx (WRx): OD: +1.00+0.75x72 (Last MR in phoropter) OS: +0.25+1.72p133 (Last MR in phoropter) *didn't bring glasses with today WRx VA: OD: - OS: - PH: Manifest Refraction (MRx): OD: +0.75+1.37c059 +2.50add OS: +0.25+1.74b210 +2.50add Final MRx VA: OD: - OS: -2/+3 *NV OU: FINAL RX Tecs Glauc Tech 10/23/2023 Tecs Refrac-Final Mrx Od +1.00+0.43f651 +2.50 Tecs Refrac-Final Mrx Os +0.25+1.99h739 +2.50 Additional MRx Information: Final MRx: OD: +0.75+1.32i014 +2.50add OS: +0.25+1.19i246 +2.50add Rx Comments: *OS MR Today: little change but pt saw better with MR--os vision fluctuating a lot Extraocular Movement, Confrontation Visual Miranda, Amsler Grid and Color Vision: Extraocular Movement: OU: Full Confrontation Visual Field: OU: Full PACHYMETRY: Pachymetry Past Results: SHF - Health Factor Select Tecs Cloth Inspector 10/23/2023 Tecs Eye Pachymetry Od 572 Tecs Eye Pachymetry Os 575 INTRAOCULAR PRESSURE (IOP): Method: Date/Time: October@10:40 Rebound Tonometer OD: 16 OS: 18 PUPILS/ANTERIOR CHAMBER (AC) Penlight or slit lamp (if available) exam unremarkable Pupils are equal, round, and reactive to light No afferent defect Pupils are dilated - Side effects of dilation medication discussed, patient stated clear understanding, and patient consented to dilation. - Patient advised not to drive if they feel they have any symptoms which could affect their ability to drive safely. - Patient advised not to engage in any activities which could put themselves or others at risk if they feel they have any symptoms which could affect their ability to perform those activities safely. - Post-mydriatic glasses discussed and dispensed to reduce light sensitivity and increase comfort in bright sunlight. - Patient instructed to report to Eye Clinic or Emergency Room IMMEDIATELY if severe eye pain, facial pain, loss of vision or cloudy vision, severe headaches, or nausea occurs. Medication: 1% Tropicamide Date/Time: October@10:53 Which Eye? OD How many drops? 1 OS How many drops? 1 IMAGING/TESTING: Fundus Photographs were done at this encounter Optical Coherence Tomography (OCT) was done at this encounter The patient DID have Optical Coherence Tomography done - Macula CATARACT EVALUATION/COMMUNITY CARE/VOICEMAIL/HANDOUTS: The patient desires a cataract surgery evaluation The patient IS willing to go to community care if applicable Per , okay to leave message regarding results and plan of care. Telephone number and address verified. Yes Patient was informed about how and when results should be received. Handouts were distributed per local policy. CONSULT ORDERS: *<< Prefers next year [facility]f @ [facility] >>* Patient communication preferences Best Contact Number: [phone] Voicemail set up: Yes Preferred Contact Method:* Patient prefers results letter to be mailed, phone call only if necessary for questions, concerns, or abnormal exam results Appendix (abbreviations): AC (Anterior Chamber); AREDS (Age Related Eye Disease Study); ARX (Auto Refraction); BID (Two Times Daily); C:D (Cup-to-Disc); CIC (Care In The Community); PHARMACY TECHNOLOGY INSTRUCTOR (Cyclophotocoagulation); CSME (Clinically Significant Macular Edema); DFE (Dilated Fundus Exam); Dorz/Timol (Dorzolamide/Timolol); DSEK (Descemet's Stripping Endothelial Keratoplasty); FAF (Fundus Autofluorescence); F/U (Follow up); GCC (Ganglion Cell Complex); Gonio (Gonioscopy); H/O (History Of); HTN (Hypertension); HVF (Samson Visual Field); IOL (Intraocular Lens); IOP (Intraocular Pressure); K (Keratometry); LASIK (Laser-Assisted In Situ Keratomileusis); MD (Mean Deviation when used with visual field); dB (decibels); MRx (Manifest Refraction); NeoPolyDex/Erythro (Neomycin Polymyxin B Dexamethasone/Erythromycin); NFL (Nerve Fiber Layer); NPDR (Nonproliferative Diabetic Retinopathy); OCT (Optical Coherence Tomography); OD (Right Eye); OS (Left Eye); OU (Both Eyes); PDR (Proliferative Diabetic Retinopathy); PFATs (Preservative Free Artificial Tears); RK (Radial Keratotomy); RNFL (Retinal Nerve Fiber Layer); RTC (Return To Clinic); scVA (Visual Acuity Without Correction/Glasses); CHUY (Jamaican Interactive Threshold Algorithm); TID (Three Times Daily); UV (Ultraviolet); VA (Visual Acuity); WRx (Prescription glasses currently worn); WRx VA (Visual Acuity With Prescription Glasses); YAG (Yttrium Aluminum [place]) Signed by: /rgupo/ [facility] 10/18/2024 11:16 TECS [place] Note: EXTERNAL PHOTOGRAPH ASSESSMENT: External photo quality adequate for interpretation Findings: Other: OD: periorbital skin laxity and cannot rule out areas of pigmentation variation/change; RUL droop; RLL lagophthalmos/mild ectropion with inf scleral show; blepharitis; ?mucous/meibum at RUL margin just temp to midline; tear film irreg; iris freckling/nevi (very dark freckle/nevus at 8:45pm, visible in 10/23/23 VECS imaging); NS OS: periorbital skin laxity, significant dermatochalasis with temp hooding, periorbital skin pigmentation changes, LLL labophthalmos/mild ectropion with inf scleral show, blepharitis, tear film irreg, IN prominent and tortuous conj vessels (visible 10/23/23 imaging); iris freckling/nevi (with very pigmented freckle/nevus 3 o'clock, visible 10/23/23 imaging); NS FUNDUS PHOTOGRAPH INTERPRETATION: Fundus Image Quality: limited in some imaging OPTIC NERVE ASSESSMENT: Cup-to-Disc ratio: OD: slightly difficult to assess c/d in 2D image, estimate <0.3, some scleral halo OS: slightly difficult to assess c/d in 2D image, estimate <0.3, some scleral halo Findings: Other: OU Comment: as noted above MACULA ASSESSMENT: Findings: Other: OU OD: some image blur limiting interpretation, few hypopigmented changes SN; OS: some image blur limiting interpretation, hypopigmented change/druse just temp to fovea and mild hypopigmented changes inferiorly RETINA ASSESSMENT: Findings: Other: OD: wavy and circular linear white change, likely artifact since in one image and not visible in other image; OS: few hypopigmented changes/druse along ST arc[place]; area of hypopigmented changes/drusen IN; OU: mild tigroid changes, cannot r/u choroidal nevi VESSEL ASSESSMENT: Findings: Other: (Specify): mild increase arteriolar light reflex OU OPTICAL COHERENCE TOMOGRAPHY (OCT): OCT Macula: Abnormal: Other/Comments(OCT Macula): OD: small vitreoretinal interface change/small ERM layers 60-57 imagemet; OS: RPE disturbance/druse (66-63 imagenet); small vitreoretinal interface change/ERM (38-35 imagenet) ASSESSMENT: Intraocular Pressure(past entry): 10/18/2024 TECS Eye IOP-OD 16 TECS Eye IOP-OS 18 10/23/2023 TECS Eye IOP-OD 15 TECS Eye IOP-OS 15 Previous images and studies reviewed (see comment); greater than 51 minutes spent in the care of this patient. Comment: VECS 10/23/23 and 10/24/23, TECS 10/21/22, [facility] Virtual Eye Care Services (VECS) Exam Shows: Patient evaluated in Virtual Eye Care Services (VECS). The VECS visit is not a complete eye exam and is not a substitute for an in person comprehensive eye exam; the VECS exam is limited in scope, is not a full eye exam, and cannot rule out pathology that is not imaged or tested for; in- person cybp-np-stup eye exams are important and recommended; if any changes in vision or symptoms, report to ED or eye clinic immediately Cataracts OU: Patient does have some cataract, but they are not currently bothered or interested in surgical intervention; spectacle RX dispensed; if any changes in vision or symptoms, to return to eye clinic/ED; UV protection/sunglasses; no driving and no activities at anytime that vision or any issues could affect ability to do so safely; Steroid use (patient has been prescribed methylprednisolone orally for pain) can contribute to cataract development; recommend discussing with prescribing provider, and recommend continued f/u with PCP and eye care No history of diabetes HgA1C 5.6 on 03/20/24 Recommend bg, bp, lipid, weight control, and optimization of cardiovascular status per Primary Care Provider; recommend compliance with health care management and routine screening exams with PCP and with eyecare providers Nerve: Other: OU Comment: slightly difficult to measure c/d in 2D imaging Recommend f-2-f comprehensive eye exam with [facility] Ophthalmology for further evaluation/management Macular Degeneration: Other (Macular degeneration): rare druse OS on mac OCT Daily amsler screening, uv/tint protection, healthy diet, no smoking which can worsen AMD/vision, weight management/recommend compliance with follow-up/screening exams; if any changes in vision or on amsler, to eye clinic/ER same day Recommend f-2-f comprehensive eye exam with [facility] Ophthalmology for further evaluation/management Retina: Other(Retina): small areas of vitreoretinal interface change/tiny ERM OU Daily amsler monitoring, if any changes, to ED/eye clinic immediately (same day); UV protection/sunglasses; Recommend f-2-f comprehensive eye exam with [facility] Ophthalmology for further evaluation/management Refractive error: Presbyopia OU, hypermetropia OU, astigmatism OU; BCVA OD 20/20-1, OS 20/25-2+3; Spectacle Prescription: Spectacle Prescription Ordered: Reasonable to order glasses using today's manifest refraction (MRx) and add as identified in platform power technician note. Add style and any tint per patient preference within optical allowable options. Sunglasses ok for glare reduction / UV light avoidance Blepharitis and tear film irreg OU: warm compresses and lid hygiene OU QHS; pres-free tears OU prn; no eye rubbing; if becomes symptomatic, return to eye clinic/ED; Recommend f-2-f comprehensive eye exam with [facility] Ophthalmology for further evaluation/management Dermatochalasis with significant temp hooding OS, RUL skin laxity and droop: patient not bothered; if becomes symptomatic, return to eye clinic/ED; Recommend f-2-f comprehensive eye exam with [facility] Ophthalmology for further evaluation/management Iris nevi/freckling OU, h/o aktinic keratosis: UV protection, sunscreen, hat, sunglasses; routine skin checks with PCP and/or dermatology; routine eye exams with eye care providers; if notice any changes, to ED/eye clinic immediately (same day); Recommend f-2-f comprehensive eye exam with [facility] Ophthalmology for further evaluation/management Periocular skin changes OU, h/o aktinic keratosis: UV protection, sunscreen, hat, sunglasses; routine skin checks with PCP and/or dermatology; routine eye exams with eye care providers; if notice any changes, to ED/eye clinic immediately (same day); Recommend f-2-f comprehensive eye exam with [facility] Ophthalmology for further evaluation/management Tigroid fundus changes, cannot rule out choroidal nevi OU; patient with history of actinic keratosis: UV protection, sunscreen, hat, sunglasses; routine skin checks with PCP and/or dermatology; routine eye exams with eye care providers; if notice any changes, to ED/eye clinic immediately (same day); If flashes, floaters, curtains, photopsias, any problems or symptoms, recommend patient return to eye clinic or go to emergency room immediately (same day). Recommend f-2-f comprehensive eye exam with [facility] Ophthalmology (including dilation with periph exam OU) for further evaluation/management Mild increase in arteriolar light reflex, history of HTN, bp 124/85 on 10/15/24, patient on metoprolol and lisinopril: recommend bg, bp, lipid, weight control, and optimization of cardiovascular status per Primary Care Provider; recommend compliance with health care management and routine screening exams with PCP and with eyecare providers; if any change in vision, blacking out of vision, blurry vision, headache, weakness, numbness, chest pain, shortness of breath, trouble swalling, slurred speech, any problems or symptoms, to ED immediately (same day). Lagophthalmos lower lids, mild ectropion lower lids, inf scleral show OU: pres-free tears OU prn; no eye rubbing; if becomes symptomatic, return to eye clinic/ED immediately; Recommend f-2-f comprehensive eye exam with [facility] Ophthalmology for further evaluation/management History of dry eye OU, likely multifactorial (Parkinson's (can have decreased blink rate)), blepharitis, lagophthalmos, ectropion: pres-free tears OU prn; no eye rubbing; if becomes symptomatic or if pain, redness, discharge, tearing, vision loss, blurred vision, light sensitivity, any eye/vision problems or symptoms, return to eye clinic/ED immediately (same day); Recommend f-2-f comprehensive eye exam with [facility] Ophthalmology for further evaluation/management 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 Razo for this on 02/24/22 (see notes in [facility]); if any changes in appearance, to eye clinic/ED immediately; UV protection, sunglasses; recommend routine eye care evaluations for monitoring; if notice any changes, to ED/eye clinic immediately; patient overdue for f-2-f eye evaluation; Recommend f-2-f comprehensive eye exam with [facility] Ophthalmology for further evaluation/management Steriod use (prescribed methyprednisolone by mouth for pain): Steroid use (systemic, topical, inhalation) carries risks including but not limited to elevated eye pressure, cataract, increased susceptibility to infection, vision loss, hyperglycemia, delayed healing, mental disturbance, obesity, adrenal suppression, dyspepsia, myopathy, hypertension, osteoprosis. Recommend compliance with follow-up with provider prescribing steroid treatments and recommend routine f/u with eye care. Phosphodiesterase type 5 inhibitors (which includes some erectile dysfunction medications, patient previously prescribed sildenafil) carry risks to vision such as ischemia, vascular occlusion, serous retinal detachment which can result in visual dysfunction, permanent vision loss, blindness; advise patient to strongly consider these risks prior to deciding whether to continue use and recommend they discuss with their PCP/prescribing provider; if patient ever develops any changes in vision, visual symptoms, to eye clinic/ED immediately (same day) Cigarettes carry significant risk to eye health as well as general health and can contribute to visual disease/vision loss as well as cancer, heart disease, serious health problems, . Patient reports he does not smoke (quit). Recommend no smoking. If flashes, floaters, curtains, change in vision, loss of vision, double vision, pain, discharge, change in color vision, photopsias, difficulty with night vision, visual disturbances, tearing, redness, blacking out of vision, any problems or symptoms, recommend patient return to eye clinic or go to emergency room immediately (same day). FOLLOW-UP: Follow-up Recommendation: He is overdue for f-2-f eye evaluation, last f-2-f was with Dr. Razo through [facility] on 02/24/22; last 3 evaluations have been with [facility] In-Person Exam Within 3 months: Jan Goig forward, considering multiple findings/active issues, recommend patient is scheduled for [id number] eye evaluations with [facility] Ophthalmology, not virtual eye care services ([facility]) DISPOSITION: Result letter will be sent to the patient and includes follow-up recommendation/s and the phone number to reach the Eye Clinic, and encourages patient to review this note through my [employer] [facility] and call if any questions/symptoms. Please include in mailing of patient letter the educational handouts on: floaters/flashes, amsler, cataract, dry eye, steroid medication eye side- effects, ED medication eye side-effects RTC order for [facility] Ophthalmology for within 3 months placed as indicated per protocol. I attempted to call the patient by phone x 2 but was unable to speak with him and it did not go to so unable to leave a message; letter will be mailed and will ask [facility] to try to reach the patient by phone as well. Telehealth encounter completed by remote provider at [facility]: [facility] Greater than 51 minutes of time spent in the care of this patient. Appendix (abbreviations): AC (Anterior Chamber); AREDS (Age Related Eye Disease Study); ARX (Auto Refraction); BID (Two Times Daily); C:D (Cup-to-Disc); CIC (Care In The Community); PHARMACY TECHNOLOGY INSTRUCTOR (Cyclophotocoagulation); CSME (Clinically Significant Macular Edema); DFE (Dilated Fundus Exam); Dorz/Timol (Dorzolamide/Timolol); DSEK (Descemet's Stripping Endothelial Keratoplasty); FAF (Fundus Autofluorescence); F/U (Follow up); GCC (Ganglion Cell Complex); Gonio (Gonioscopy); H/O (History Of); HTN (Hypertension); HVF ([place] Visual Field); IOL (Intraocular Lens); IOP (Intraocular Pressure); K (Keratometry); LASIK (Laser-Assisted In Situ Keratomileusis); MD (Mean Deviation when used with visual field); dB (decibels); MRx (Manifest Refraction); NeoPolyDex/Erythro (Neomycin Polymyxin B Dexamethasone/Erythromycin); NFL (Nerve Fiber Layer); NPDR (Nonproliferative Diabetic Retinopathy); OCT (Optical Coherence Tomography); OD (Right Eye); OS (Left Eye); OU (Both Eyes); PDR (Proliferative Diabetic Retinopathy); PFATs (Preservative Free Artificial Tears); RK (Radial Keratotomy); RNFL (Retinal Nerve Fiber Layer); RTC (Return To Clinic); scVA (Visual Acuity Without Correction/Glasses); CHUY (Jamaican Interactive Threshold Algorithm); TID (Three Times Daily); UV (Ultraviolet); VA (Visual Acuity); WRx (Prescription glasses currently worn); WRx VA (Visual Acuity With Prescription Glasses); YAG (Yttrium Aluminum [place]) /grupo/ KRIS SOLORZANO MDcore composer machine tender Signed: 10/21/2024 14:13 Receipt Acknowledged By: * AWAITING SIGNATURE * COY VENEGAS 10/21/2024 14:33 /grupo/ NICCI Barbosa [facility] [employer] [employer] OPHTHALMOLOGY * AWAITING SIGNATURE * GISELLE GARG 10/21/2024 ADDENDUM STATUS: COMPLETED For [facility]: It is recommended that the patient return to [facility] Ophthalmology within 3 months. Please monitor and if not seen/scheduled as recommended, please work with the patient and clinic staff to help get the patient scheduled to avoid delays in care (and notify [facility] reader/s and/or optom/ophtho officer- on-duty if urgent or reader not available). Please also notify [facility] reader/s (and/or optom/ophtho [id number] if urgent or reader not available) when clinic notes are available for review. For the [facility] WF: I attempted to call the patient by phone x 2 but was unable to speak with the patient or to leave a message (it would not go to ); Please call the patient and review plan and recommended follow-up; if he has questions for the [facility] provider/reader, please also notify provider/reader (and/or optom/ophtho [id number] if urgent or if this provider/reader not available). /grupo/ KRIS SOLORZANO MDcore composer machine tender Signed: 10/21/2024 14:14 10/21/2024 ADDENDUM STATUS: COMPLETED called. spoke with and reviewed recommendation in-person exam in the next 3 months. He stated understanding and was in agreement with this plan. /grupo/ NICCI Barbosa [facility] OPHTHALMOLOGY Signed: 10/21/2024 14:40 KRIS SOLORZANO MD [facility]
--- OUTSIDE RECORDS SUMMARY | 2024-10-22 08:11 | XMS_ITS | Encounter Summary ---
Author Name [facility] Organization [facility] [place] Address [address] [place] [address] Care Team Providers Care Telemedicine Physician Name Role Phone MELITON DOMINGUEZ Primary Care [...] PART A Dec 10, 2017 PART A [id number] [phone] LERUM,ELENI D PATIENT MEDICARE (WNR) MEDICARE (M) PART A Dec 10, 2017 PART A [id number] [phone] LERUM,ELENI D PATIENT MEDICARE (WNR) MEDICARE (M) PART B Dec 10, 2017 PART B [id number] [phone] LERUM,ELENI D PATIENT MEDICARE (WNR) MEDICARE (M) PART A Dec 10, 2017 PART A [id number] [phone] LERUM,ELENI D PATIENT MEDICARE (WNR) MEDICARE (M) PART B Dec 10, 2017 PART B [id number] [phone] LERUM,ELENI D PATIENT MEDICARE (WNR) MEDICARE (M) PART B Dec 10, 2017 PART B [id number] [phone] LERUM,ELENI D PATIENT MEDICARE (WNR) MEDICARE (M) PART A Dec 10, 2017 PART A [id number] [phone] LERUM,ELENI D PATIENT MEDICARE (WNR) MEDICARE (M) PART B Dec 10, 2017 PART B [id number] [phone] LERUM,ELENI D PATIENT Selected Encounter This section includes the information on record at [place] for the Encounter. Date/Time Encounter Type Encounter Description Reason Provider Source Sep 19, 2024 02:00 PM OFFICE O/P EST HI 40 MIN PM&RS PHYSICIAN ICD-10-CM G20.B2 Parkinson's disease with dyskinesia, with fluctuations TISHA PARRY [facility] Encounter Template Text not used by [place] Assessments - Encounter Diagnoses This section includes the primary and secondary diagnoses documented for the Encounter. Date/Time Primary/Secondary Diagnosis Diagnosis Name Provider Source Sep 23, 2024 04:34 PM PRIMARY Parkinson's disease with dyskinesia, with fluctuations TISHA PARRY [facility] Sep 23, 2024 04:34 PM SECONDARY Cognitive communication deficit TISHA PARRY [facility] Plan of Treatment: Future Appointments (+ 6 months) and Future Tests (+/- 45 days) The Plan of Treatment section includes future care activities for the patient from all [facility] hospital. This section includes future appointments and future orders which are active, pending or scheduled. Future Appointments This section includes appointments that were scheduled to occur 6 months from the date of the Encounter, up to a maximum of 20 appointments. The data comes from all [place] treatment facilities. Appointment Date/Time Appointment Type Appointme nt Facility Name Oct 03, 2024 10:00 AM AMBULATORY - NONE [facility] Oct 07, 2024 10:00 AM AMBULATORY - REHAB [facility] October 15, 2024 03:00 PM AMBULATORY - MEDICINE [facility] October 18, 2024 10:30 AM AMBULATORY - SURGERY [facility] October 25, 2024 10:00 AM AMBULATORY - MEDICINE [facility] October 29, 2024 01:30 PM AMBULATORY - REHAB MEDICIN E [facility] Nov 13, 2024 09:00 AM AMBULATORY - REHAB MEDICIN [facility] Dec 26, 2024 01:30 PM AMBULATORY - NEUROLOGY [facility] Jan 27, 2025 09:30 AM AMBULATORY - REHAB MEDICIN [facility] Vital Signs: All taken on the encounter date This section contains inpatient and outpatient Vital Signs collected on the date of the Encounter. Date/Time Temperature Pulse Blood Pressure Respiratory Rate SP02 Pain Height Weight Body Mass Index Source Sep 19, 2024 02:12 PM 97.1 72 119/81 16 97 [facility] Social History: Smoking Status (Most current) and Tobacco Use (All prior to encounter date) This section includes the most current, and the historical, smoking and tobacco- related health factors from the [place] facility where the Encounter took place. Current Smoking Status This section includes the most current smoking, or tobacco-related health factor, from the [place] facility where the Encounter took place. Date/Time Current Smoking Status Comment Facil ity Mar 20, 2024 11:00 AM VA-TOBACCO FORMER USER [facility] Tobacco Use History This section includes a history of the smoking, or tobacco-related health factors, that were collected on or before the date of the Encounter. The data comes from the [place] facility where the Encounter took place. Date/Time Smoking Status/Tobacco Use Comment F acility Mar 20, 2024 11:00 AM VA-TOBACCO QUIT 15 YRS OR MORE [facility] Jan 18, 2023 10:00 AM VA-TOBACCO FORMER USER [facility] Jan 18, 2023 10:00 AM VA-TOBACCO QUIT 15 YRS OR MORE [facility] Jan 19, 2022 01:00 PM VA-TOBACCO FORMER USER [facility] Jan 19, 2022 01:00 PM VA-TOBACCO QUIT 15 YRS OR MORE [facility] Apr 16, 2021 03:30 PM VA-TOBACCO FORMER USER [facility] Apr 16, 2021 03:30 PM VA-TOBACCO QUIT 15 YRS OR MORE [facility] Mar 11, 2020 09:00 AM VA-TOBACCO FORMER USER [facility] Mar 11, 2020 09:00 AM VA-TOBACCO QUIT 15 YRS OR MORE [facility] Radiology Reports: +/- 30 days of the [...] the Encounter. The data comes from all [place] treatment facilities. Date/Time Radiology Report Provider Source October 15, 2024 03:22 PM LUMBAR SPINE MIN 4 VIEWS: REED WALLACE [id number] -[id number] M Exm Date: OCTOBER 15, 2024@15:22 Req Phys: MELITON DOMINGUEZ H Pat Loc: [facility] PACT IVORY 4E (Req'g Loc) Img Loc: MAIN X-RAY Service: [place] [address] (Case [id number] COMPLETE) LUMBAR SPINE MIN 4 VIEWS (RAD Detailed) CPT:42415 Reason for Study: severe LBP Clinical History: h/o parkinson, c/o severe low back pain, left sided radiating across the back. No recall of injury. Please justin pt is waiting in clinic My pager number on record is: [phone]. I confirm that the pager number/cell phone number above is correct for reporting critical results. Trainees only: Enter your staff provider's info here: LAST CREATININE 0.7 (03/20/24) Report Status: Verified Date Reported: OCTOBER 15, 2024 Date Verified: OCTOBER 15, 2024 Natural Resources Professor E-Sig:/ES/WERNER SY MD Report: EXAMINATION: LUMBAR SPINE [...] Primary Interpreting Staff: WERNER SY MD, RADIOLOGIST (Natural Resources Professor) /RTS WERNER SY [facility] Oct 03, 2024 10:06 AM US AORTA (P): REED WALLACE [id number] M Exm Date: OCT 03, 2024@10:06 Req Phys: MELITON DOMINGUEZ Pat Loc: [facility] PT PATRIZIA Doretha (Req'g Loc) Img Loc: Ultrasound Imaging Service: [place] [address] (Case [id number] COMPLETE) US RETROPERITONEAL LIMITED (US Detailed) CPT:62184 Reason for Study: f/u illiac aneurysm Clinical History: IS NOT under investigation for COVID-19 or is COVID-19 negative f/u illiac aneurysm for interval change Responsible provider name and phone number to notify for critical findings if other than user placing the order and pager listed below: User placing orders pager: [phone] LAST CREATININE 0.7 (08/22/23) Report Status: Verified Date Reported: OCT 03, 2024 Date Verified: OCT 03, 2024 Natural Resources Professor E-Sig:/ES/DORINDA MEDEROS Report: Abdominal Aorta Ultrasound Examination (follow-up) Comparison [...] PATIENT'S FINDINGS ENDS HERE. Recommendations from the [place] Vascular Surgery Department, updated 2023: Small infrarenal [...] expected and does not change the recommendations I, Dorinda Mederos, have reviewed the images and report. Report Sign Date/Time: 10/03/2024 11:30 AM Primary Interpreting Staff: DORINDA MEDEROS, RADIOLOGIST (Natural Resources Professor) Primary Interpreting Resident: ANIYAH HAIDER DO, CREATIVE ENGAGEMENT DIRECTOR /DORINDA THOMAS [facility] Encounter Notes: All associated encounter notes This section contains the clinical notes associated to the Encounter. Date/Time Encounter Note(s) Provider Source Sep 19, 2024 02:15 PM PHYSICAL MEDICINE REHAB NURSING NOTE: LOCAL TITLE: REHAB MEDICINE CLINIC NURSING NOTE STANDARD TITLE: PHYSICAL MEDICINE REHAB NURSING NOTE DATE OF NOTE: SEP 19, 2024@14:15 ENTRY DATE: SEP 19, 2024@14:15:05 AUTHOR: SINTIA DEWEY EXP COSIGNER: URGENCY: STATUS: COMPLETED C-SSRS Screening [place] Suicide Severity Rating Scale (C-SSRS) screener 1. Over the past month, have you wished you were or wished you could go to sleep and not wake up? No 2. Over the past month, have you had any actual thoughts of killing yourself? No 3. Over the past month, have you been thinking about how you might do this? Response not required due to responses to other questions. 4. Over the past month, have you had these thoughts and had some intention of acting on them? Response not required due to responses to other questions. 5. Over the past month, have you started to work out or worked out the details of how to kill yourself? Response not required due to responses to other questions. 6. If yes, at any time in the past month did you intend to carry out this plan? Response not required due to responses to other questions. 7. In your lifetime, have you ever done anything, started to do anything, or prepared to do anything to end your life (for example, collected pills, obtained a gun, gave away valuables, went to the roof but didn't jump)? No 8. If YES, was this within the past 3 months? Response not required due to responses to other questions. Type of visit: Appointment Check In Reason for Visit: RTC Vital Signs: Blood Pressure: 119/81 (09/19/2024 14:12) Pulse: 72 (09/19/2024 14:12) Respiration: 16 (09/19/2024 14:12) Temperature: 97.1 F [36.2 C] (09/19/2024 14:12) Weight: 231.7 lb [105.10 kg] (09/10/2024 09:29) Height: 69.5 in [176.5 cm] (04/16/2021 15:35) BMI: 33.8 Pain: 0 (09/10/2024 09:29) Allergies: AMLODIPINE (Jun 17, 2020) Medications: Active Outpatient Medications and Supplies: Active Outpatient Medications (including Supplies): Active Outpatient Medications Status 1) ATORVASTATIN CALCIUM 20MG TAB TAKE ONE TABLET BY MOUTH AT ACTIVE BEDTIME Indication: FOR CHOLESTEROL 2) CARBIDOPA 48.75MG/LEVODOPA 195MG SA CAP TAKE 3 CAPSULES BY ACTIVE MOUTH THREE TIMES A DAY SUGGEST TAKING AT 6 AM, 12 NOON AND 6 PM. STOP ENTACAPONE Indication: FOR PARKINSON DISEASE 3) CARBIDOPA 50/LEVODOPA 200MG SA TAB TAKE 1 TABLET BY MOUTH AT ACTIVE BEDTIME Indication: FOR PARKINSON DISEASE 4) CHLORTHALIDONE 25MG TAB TAKE ONE-HALF TABLET BY MOUTH EVERY ACTIVE MORNING Indication: FOR BLOOD PRESSURE 5) CLINDAMYCIN PHOSPHATE 1% LOTION APPLY TO AFFECTED AREA ACTIVE TOPICALLY TWICE A DAY Indication: FOR RASH UNTIL RESOLVED 6) DOCUSATE NA 100MG CAP TAKE TWO CAPSULES BY MOUTH TWICE A DAY ACTIVE Indication: FOR CONSTIPATION 7) LIDOCAINE 5% PATCH APPLY 1 PATCH TOPICALLY EVERY DAY ACTIVE NEEDED - PLACE ON RIGHT SHOULDER Indication: FOR UP TO 12 HOURS FOR PAIN 8) LISINOPRIL 20MG TAB TAKE ONE TABLET BY MOUTH EVERY DAY ACTIVE Indication: FOR BLOOD PRESSURE 9) MELATONIN 3MG CAP/TAB TAKE 3 TABLETS BY MOUTH AT BEDTIME ACTIVE Indication: FOR SLEEP 10) METOPROLOL SUCCINATE 50MG SA TAB TAKE ONE TABLET BY MOUTH ACTIVE EVERY DAY Indication: FOR BLOOD PRESSURE 11) POLYETHYLENE GLYCOL 3350 ORAL PWDR TAKE 17 GRAMS BY MOUTH ACTIVE THREE TIMES A WEEK Indication: FOR CONSTIPATION 12) TIZANIDINE HCL 2MG TAB TAKE ONE TABLET BY MOUTH EVERY ACTIVE EVENING AND TAKE ONE TABLET EVERY EVENING NEEDED Indication: FOR DYSTONIA 13) UREA 20% CREAM APPLY THIN LAYER TOPICALLY AT BEDTIME ON ACTIVE RIGHT FOOT Indication: FOR CALLUSES 14) VANICREAM TOP CREAM APPLY THIN LAYER TOPICALLY EVERY DAY ACTIVE IDEALLY WITHIN 3 MINUTES AFTER BATH OR SHOWER. Indication: FOR DRY SKIN Patient reports the following changes regarding the current pharmacy list of medications: The above medication list confirmed with patient. A copy of the above medication list given to the MD for review and update. Provider will give printed copy of medication list to patient with any changes documented on printed medication list. /grupo/ SINTIA DEWEY LPN LPN Signed: 09/19/2024 14:16 SINTIA DEWEY [facility] Sep 19, 2024 02:14 PM PHYSICAL MEDICINE REHAB OUTPATIENT NOTE: LOCAL TITLE: REHAB MEDICINE CLINIC NOTE STANDARD TITLE: PHYSICAL MEDICINE REHAB OUTPATIENT NOTE DATE OF NOTE: SEP 19, 2024@14:14 ENTRY DATE: SEP 19, 2024@14:14:45 AUTHOR: TISHA PARRY COSIGNER: URGENCY: STATUS: COMPLETED Rehab Medicine f/u [facility] visit SUBJECTIVE: 73 year old right-handed [employer] with Parkinson's Disease, seen today for follow-up in rehab medicine, unaccompanied. Shahrzad is visiting [employer] in [place] this week. Last seen in Apr at which time he continued f/u with DIFFUSER OPERATOR for voice/cognition, PT for mobilty. L foot dystonia continued, following with neurology- note recent request for change to rytary to address wearing off dystonia. Was taking tizanidine for dystonia but prefered to mimimize use as able, botox did not help. Was hoping to begin PD Boxing and was provided information on LSVT, PD wellness groups. He and Shahrzad had recently at our last visit. Today, Mr Wallace reports he and Shahrzad -doing rock steady boxing in [place]- when not on vacation. done 3X's so far. just got back from [place]. does some HEP most days as well. has f/u with Patrizia. Shahrzad has noted some shuffling. no FOG -started rytary yesterday, has stopped all C/L IR. not going well. struggling with symptoms, unsure if doing right. thought was supposed to take rytary QID but order is for TID. FUNCTIONAL ROS: MOBILITY/TRANSFERS: independent, occasional use of walking sticks or canes. ADLS: independent IADLS/MEDICATION MGMT: manages his meds and bills wihout difficulty DRIVING: continues, Shahrzad notes sometimes distracted, she often drives PAIN: denies pain. has given up on the shoulder, feels next step is replacement. continues to do exercises. monitors. not using an OTC meds as pain is too quick- here and gone- only with movement. ROS: GAIT: more festinating/shuffling. trip in [place] went ok but slowing down. hard to magisterial district judge now with change to rytary. no falls. LH/dizziness: only if gets up too fast, rare TREMOR: notices in L hand and arm, sometimes L foot and leg (less so). is RH so not interfering too much. increases at rest in hand. SPEECH/COMMUNICATION: Shahrzad will tell him to stop mumbling, speak up. She is [place] however. SWALLOW: swallowing well. COGNITION: VH in his peripheray, shadows of people. not distressing. perhaps a bit less attention when driving, may miss a turn Shahrzad wanted him to make etc. sometimes struggles with context of conversation and STM noticably more short per Shahrzad. He feels is fine for now. SLEEP: pretty well, just got bck from [place] so has a little jet lagged. BLADDER/BOWEL: regular BM's with use of miralax and docusate BID. works on good diet. SOCIAL: Got in . Just got back from [place] and will be going to [place] and [place] for [employer]. expecting his first gradddtr soon- in [place]- will plan to spend some time with his dtr there once baby arrives. OBJECTIVE: Allergies: AMLODIPINE (Jun 17, 2020) Active Outpatient Medications (excluding Supplies): 1) ATORVASTATIN CALCIUM 20MG TAB TAKE ONE TABLET BY MOUTH AT ACTIVE BEDTIME Indication: FOR CHOLESTEROL 2) CARBIDOPA 48.75MG/LEVODOPA 195MG SA CAP TAKE 3 CAPSULES BY ACTIVE MOUTH THREE TIMES A DAY SUGGEST TAKING AT 6 AM, 12 NOON AND 6 PM. STOP ENTACAPONE Indication: FOR PARKINSON DISEASE 3) CARBIDOPA 50/LEVODOPA 200MG SA TAB TAKE 1 TABLET BY MOUTH AT ACTIVE BEDTIME Indication: FOR PARKINSON DISEASE 4) CHLORTHALIDONE 25MG TAB TAKE ONE-HALF TABLET BY MOUTH EVERY ACTIVE MORNING Indication: FOR BLOOD PRESSURE 5) CLINDAMYCIN PHOSPHATE 1% LOTION APPLY TO AFFECTED AREA ACTIVE TOPICALLY TWICE A DAY Indication: FOR RASH UNTIL RESOLVED 6) DOCUSATE NA 100MG CAP TAKE TWO CAPSULES BY MOUTH TWICE A DAY ACTIVE Indication: FOR CONSTIPATION 7) LIDOCAINE 5% PATCH APPLY 1 PATCH TOPICALLY EVERY DAY ACTIVE NEEDED - PLACE ON RIGHT SHOULDER Indication: FOR UP TO 12 HOURS FOR PAIN 8) LISINOPRIL 20MG TAB TAKE ONE TABLET BY MOUTH EVERY DAY ACTIVE Indication: FOR BLOOD PRESSURE 9) MELATONIN 3MG CAP/TAB TAKE 3 TABLETS BY MOUTH AT BEDTIME ACTIVE Indication: FOR SLEEP 10) METOPROLOL SUCCINATE 50MG SA TAB TAKE ONE TABLET BY MOUTH ACTIVE EVERY DAY Indication: FOR BLOOD PRESSURE 11) POLYETHYLENE GLYCOL 3350 ORAL PWDR TAKE 17 GRAMS BY MOUTH ACTIVE THREE TIMES A WEEK Indication: FOR CONSTIPATION 12) TIZANIDINE HCL 2MG TAB TAKE ONE TABLET BY MOUTH EVERY ACTIVE EVENING AND TAKE ONE TABLET EVERY EVENING NEEDED Indication: FOR DYSTONIA 13) UREA 20% CREAM APPLY THIN LAYER TOPICALLY AT BEDTIME ON ACTIVE RIGHT FOOT Indication: FOR CALLUSES 14) VANICREAM TOP CREAM APPLY THIN LAYER TOPICALLY EVERY DAY ACTIVE IDEALLY WITHIN 3 MINUTES AFTER BATH OR SHOWER. Indication: FOR DRY SKIN Active problems - Computerized Problem List is the source for the followin. Parkinson's disease 2. Benign essential hypertension 3. Hyperlipidaemia 4. Polyneuropathy 5. Intertriginous dermatitis 6. Erectile dysfunction 7. Herpes genitalis 8. Aneurysm of common iliac artery - 01.26.2021 CTA reviewed by Vascular. 1 year(2021) [place] surveillance 9. Ankle oedema 10. Steatosis of liver 11. Cholelithiasis 12. Dystrophic nail 13. Pain of right shoulder joint 14. Thrombocytopenia 15. Actinic keratosis 16. [place] 17. Dystonia LAB RESULTS LAST 48 HRS - NONE FOUND PAST SURGICAL HISTORY: -L ulnar nerve decompression and full transformation in 2013 for L hand/digit tremor/numbness. No change- later dx PD. 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 increased figiting today, uncomfortable at times, remarks on ryary transition MSE: alert and awake, attends and follows Mood: euthymic, future oriented. frequent use of humor Facial expression: mild hypomimia, appropriate Thought processing: slowed. logical. + word-finding difficulty. some struggling with focus. (? rytary transition) Speech/Swallow: slowed, mild paucity, readily intelligible Tremor: resting hand tremor on left throughout visit, low/mod amplitude. matthew postural tremor, mild. no kinetic tremor Abnormal movements: some mild trunk movements, legs figity, L foot dytonia remains Gait: stands without use of arms. notes mild LH with standing that resolves readily. Ambulates with intermittent shuffling, some festination on initiation. slow gait speed. posture is forward leaning with downward gaze that he corrects briefly with cueing. Turn is wide, en bloc, cautious. arm swing in marked decreased bilaterally with notable L hand tremor. resists pull test with 3 steps. ASSESSMENT: 73 year old [employer] with Parkinson's Disease and polyneuropathy (left CTS, s/p surgery). PD diagnosed in 2014, with initial symptoms including L hand resting tremor and gait/balance difficulties. Presents today on day 2 of rytary trial and notable more off r/t med change. has questions regarding dosing and if doing the transition well. Exam today notable for festinating and shuffling, forward posture/gaze, slow cautious gait, incresaed tremor and abnormal movements. RECOMMENDATIONS: -much support offered regarding rytary transition. Reviewed neurology medication order and that it is indeed TID dosing. encouraged him to continue with transition -reached out to Dr Tamayo for consideration of PharmD consult for added support during transition. Dr Tamayo will call Mr Wallace. -has PT appt the end of this month. Encouraged again to continue transition of meds with hope that by the time he see's PT, will have a better idea of how it is going, ongoing symptoms and effect on dystonia. he agrees. in meantime, continue HEP/remaining active as able. LSVT/PD wellness groups could be beneficial (per PT) when/if interested -Shahrzad noting more cognitive concerns. last NPT October2022. he is not interested in repeat at this time and is best to wait until through transition. Reassess next visit. -continue ST for compensatory cognitive strategies and speech. -continue docusate and miralax for constipation Chronic R shoulder pain r/t OA. no relief with steriod injection in past, PRP to R GH joint per MSK helped for a time. continues shoulder ROM. monitor Follow up: RTC in 4 months, FTF. to call sooner, PRN. 70 minutes spent, on the day of service, in review of records, obtaining history, review of systems, physical examination, discussion/education on findings and establishment/coordination of mutually agreed upon plan of care. /grupo/ TISHA PARRY DNP, MANAGER SOLAR NURSE PRACTITIONER Signed: 09/23/2024 16:34 TISHA PARRY [facility]
--- OUTSIDE RECORDS SUMMARY | 2024-10-22 08:11 | XMS_ITS | Encounter Summary ---
Author Name [facility] Organization [facility] Address [address] [place] [address] Care Team Providers Care Scale Installer Name Role Phone MELITON DOMINGUEZ Primary Care [...] PART A Dec 10, 2017 PART A [id number] [phone] LERUM,ELENI D PATIENT MEDICARE (WNR) MEDICARE (M) PART A Dec 10, 2017 PART A [id number] [phone] LERUM,ELENI D PATIENT MEDICARE (WNR) MEDICARE (M) PART B Dec 10, 2017 PART B [id number] [phone] LERUM,ELENI D PATIENT MEDICARE (WNR) MEDICARE (M) PART B Dec 10, 2017 PART B [id number] [phone] LERUM,ELENI D PATIENT MEDICARE (WNR) MEDICARE (M) PART A Dec 10, 2017 PART A [id number] [phone] LERUM,ELENI D PATIENT MEDICARE (WNR) MEDICARE (M) PART B Dec 10, 2017 PART B [id number] [phone] LERUM,ELENI D PATIENT MEDICARE (WNR) MEDICARE (M) PART A Dec 10, 2017 PART A [id number] [phone] LERUM,ELENI D PATIENT MEDICARE (WNR) MEDICARE (M) PART B Dec 10, 2017 PART B [id number] [phone] LERUM,ELENI D PATIENT Selected Encounter This section includes the information on record at ID for the Encounter. Date/Time Encounter Type Encounter Description Reason Provider Source Oct 07, 2024 10:00 AM SELF CARE MNGMENT TRAINING PHYSICAL THERAPY ICD-10-CM R26.89 Other abnormalities of gait and mobility PATRIZIA MITTAL [facility] Encounter Template Text not used by ID Assessments - Encounter Diagnoses This section includes the primary and secondary diagnoses documented for the Encounter. Date/Time Primary/Secondary Diagnosis Diagnosis Name Provider Source Oct 07, 2024 10:53 AM PRIMARY Other abnormalities of gait and mobility PATRIZIA MITTAL [facility] Oct 07, 2024 10:53 AM SECONDARY Low back pain, unspecified PATRIZIA MITTAL [facility] Oct 07, 2024 10:53 AM SECONDARY Parkinson's disease with dyskinesia, with fluctuations PATRIZIA MITTAL [facility] Plan of Treatment: Future Appointments (+ 6 months) and Future Tests (+/- 45 days) The Plan of Treatment section includes future care activities for the [facility] This section includes future appointments and future orders which are active, pending or scheduled. Future Appointments This section includes appointments that were scheduled to occur 6 months from the date of the Encounter, up to a maximum of 20 appointments. The data comes from all ID treatment facilities. Appointment Date/Time Appointment Type Appointme nt Facility Name October 15, 2024 03:00 PM AMBULATORY - MEDICINE [facility] October 18, 2024 10:30 AM AMBULATORY - SURGERY [facility] October 25, 2024 10:00 AM AMBULATORY - MEDICINE [facility] October 29, 2024 01:30 PM AMBULATORY - REHAB [facility] Nov 13, 2024 09:00 AM AMBULATORY - REHAB MEDICIN E [facility] Dec 26, 2024 01:30 PM AMBULATORY - NEUROLOGY [facility] Jan 27, 2025 09:30 AM AMBULATORY - REHAB MEDICIN [facility] Active, Pending, and Scheduled Orders This section includes a listing of several types of active, pending, and scheduled orders, including clinic medications orders, diagnostic test orders, procedure orders and consult orders; where the start date of the order is 45 days before the date of the Encounter or 45 days after the date of theEncounter. The data comes from all ID treatment facilities. Test Date/Time Test Type Test Details Facility Name Nov 15, 2024 12:00 AM Laboratory - Chemi stry Order CBC & DIFF BLOOD SP ONCE [facility] Nov 15, 2024 12:00 AM Laboratory - Chemi stry Order LIPID PANEL,NON-FASTING PLASMA SP [facility] Nov 15, 2024 12:00 AM Laboratory - Chemi stry Order BASIC METABOLIC PANEL+MG PLASMA SP [facility] Social History: Smoking Status (Most current) and Tobacco Use (All prior to encounter date) This section includes the most current, and the historical, smoking and tobacco- related health factors from the ID facility where the Encounter took place. Current Smoking Status This section includes the most current smoking, or tobacco-related health factor, from the ID facility where the Encounter took place. Date/Time Current Smoking Status Comment Facil ity Mar 20, 2024 11:00 AM VA-TOBACCO FORMER USER [facility] Tobacco Use History This section includes a history of the smoking, or tobacco-related health factors, that were collected on or before the date of the Encounter. The data comes from the ID facility where the Encounter took place. Date/Time Smoking Status/Tobacco Use Comment F acility Mar 20, 2024 11:00 AM VA-TOBACCO QUIT 15 YRS OR MORE [facility] Jan 18, 2023 10:00 AM VA-TOBACCO FORMER USER [facility] Jan 18, 2023 10:00 AM VA-TOBACCO QUIT 15 YRS OR MORE [facility] Jan 19, 2022 01:00 PM VA-TOBACCO FORMER USER [facility] Jan 19, 2022 01:00 PM VA-TOBACCO QUIT 15 YRS OR MORE [facility] Apr 16, 2021 03:30 PM VA-TOBACCO FORMER USER [facility] Apr 16, 2021 03:30 PM VA-TOBACCO QUIT 15 YRS OR MORE [facility] Mar 11, 2020 09:00 AM ID-TOBACCO FORMER USER [facility] Mar 11, 2020 09:00 AM ID-TOBACCO QUIT 15 YRS OR MORE [facility] Radiology Reports: +/- 30 days of [...] the Encounter. The data comes from all ID treatment facilities. Date/Time Radiology Report Provider Source October 15, 2024 03:22 PM LUMBAR SPINE MIN 4 VIEWS: REED WLALACE [id number] -1950 M Exm Date: OCTOBER 15, 2024@15:22 Req Phys: DOMINGUEZ,MELITON H Pat Loc: [facility] PACT IVORY 4E (Req'g Loc) Img Loc: MAIN X-RAY Service: [place] [address] (Case [id number] COMPLETE) LUMBAR SPINE MIN 4 VIEWS (RAD Detailed) CPT:82275 Reason for Study: severe LBP Clinical History: h/o parkinson, c/o severe low back pain, left sided radiating across the back. No recall of injury. Please eval, pt is waiting in clinic My pager number on record is: [phone]. I confirm that the pager number/cell phone number above is correct for reporting critical results. Trainees only: Enter your staff provider's info here: LAST CREATININE 0.7 (03/20/24) Report Status: Verified Date Reported: OCTOBER 15, 2024 Date Verified: OCTOBER 15, 2024 [employer] Grinding Mill Operator E-Sig:/ES/WERNER SY MD Report: EXAMINATION: LUMBAR SPINE [...] Primary Interpreting Staff: WERNER SY MD, RADIOLOGIST ([employer] Grinding [employer] Operator) /RTS WERNER SY [facility] Oct 03, 2024 10:06 AM US AORTA (P): REED WALLACE [id number] -1950 M Exm Date: OCT 03, 2024@10:06 Req Phys: MELITON DOMINGUEZ Kina Pat Loc: [facility] PT PATRIZIA Coyne (Req'g Loc) Img Loc: Ultrasound Imaging Service: [place] [address] (Case [id number] COMPLETE) US RETROPERITONEAL LIMITED (US Detailed) CPT:44702 Reason for Study: f/u illiac aneurysm Clinical History: IS NOT under investigation for COVID-19 or is COVID-19 negative f/u illiac aneurysm for interval change Responsible provider name and phone number to notify for critical findings if other than user placing the order and pager listed below: User placing orders pager: [phone] LAST CREATININE 0.7 (08/22/23) Report Status: Verified Date Reported: OCT 03, 2024 Date Verified: OCT 03, 2024 [employer] Grinding [employer] Operator E-Sig:/ES/DORINDA MEDEROS Report: Abdominal Aorta Ultrasound Examination [...] PATIENT'S FINDINGS ENDS HERE. Recommendations from the ID Vascular Surgery Department, updated 2023: Small infrarenal [...] AM Primary Interpreting Staff: DORINDA MEDEROS, RADIOLOGIST ([employer] Grinding Mill Operator) Primary Interpreting Resident: ANIYAH HAIDER DO, [employer] ARCHITECT /DORINDA THOMAS [facility] Encounter Notes: All associated encounter notes This section contains the clinical notes associated to the Encounter. Date/Time Encounter Note(s) Provider Source Oct 07, 2024 07:19 AM PHYSICAL THERAPY N OTE: LOCAL TITLE: PT-PROGRESS NOTE STANDARD TITLE: PHYSICAL THERAPY NOTE DATE OF NOTE: OCT 07, 2024@07:19 ENTRY DATE: OCT 07, 2024@07:19:10 AUTHOR: PATRIZIA MITTAL EXP COSIGNER: URGENCY: STATUS: COMPLETED PHYSICAL THERAPY PROGRESS NOTE - OUTPATIENT NEURO REHAB Treatment: Ther Ex x 23 min, Ther Act x 10 min, Self Care Management x 15 min Treatment Diagnosis: Abnormality of Gait and Mobility, PD Date of Last Functional Testin03/22/23, 10/05/23 SUBJECTIVE Patient is a 73 year old male with Parkinson's Disease presenting for 8 month interval f/u. 10/07/24: L low back pain began 3-4 days ago, no specific WEST noted. Points to L lower quadrant, reports radiating pain into R side when it is really bad. Has been taking tylenol, using heat/ice, and massage gun. Nothing has helped relieve the pain. In the past, it would start to improve after 3 days but this has not improved. Will experience intermittent spasms. Transitional movements such as STS, getting out of bed, getting out of car are the worst. Standing, walking and laying down are comfortable positions. Describes pain as sharp ache. Denies changes in bowel/bladder control, numbness/tingling, strength. Recently switched to Rytary, 'not totally sold on it yet'. Taking a dose every 6 hours. Has not noticed much change thus far. General work-out: crunches, sit to stands, lunges, push-ups - trying to complete daily. Previously participating in [employer] but was gone the last month. Feel walking and balance were stable, denies changes in other PD symptoms. Denies falls. __ OBJECTIVE Observation: arrives to session independently. Pleasant and engaged throughout session. Antalgic gait with patient reaching behind to hold L low back frequently. THER EX - Standing Lumbar AROM: Flexion: WNL, tender with sharp pain upon standing back up Extension: WNL Sidebend: WNL BERTHA Rotation: limited but equal BERTHA Quality of Motion: slow, cautious. Reports 'tenderness' with all movements Repeated Motion Testing: improvement in pain with extension - Trialed and issued the following exercises: Supine Lower Trunk Rotation - 10 reps Supine Piriformis Stretch with Leg Straight - 3 reps - 30 second hold Supine August - 10 reps Standing Lumbar Spine Flexion Stretch Counter - 10 reps Standing Sidebends - 10 reps Standing Lumbar Rotation Stretch - 10 reps Standing Lumbar Extension - 10 reps Soft tissue mobilization with small ball THER ACT - Education, demonstration and trial of PLB while performing with STS and sit <> supine to reduce discomfort with transitional movements. Additional education on log-roll technique and avoiding stopping in painful position but rather continue breathing and moving through it. Patient able to demonstrate both appropriately. SELF CARE MANAGEMENT - Reviewed updates since last seen as noted in subjective above. - Discussed plan for session with patient agreeable to deferring objective testing to assess LBP. - Education on importance of maintaining mobility to assist with recovery. Continue use of heating pad and discuss recommended pain medcations with PCP. Perform supine exercises reviewed in bed before getting up. Perform standing exercises several times per day to assist with maintaining ROM/mobility. Recommend trying to walk and move as normally as possible to avoid compensatory movements. - Discussed PT POC with patient agreeable to VVC f/u in 1 week to assess response to HEP. Response to treatment: improvement in pain by end of session, no adverse events. __ ASSESSMENT: Patient is a 73 year old male with Parkinson's Disease presenting for 8 month interval f/u. Patient presenting with acute LBP, deferred objective testing. ROM WNL and no change in functional strength. Anticipate strained erector spinae or multifidi while attempting core exercise (crunches). Initiated gentle ROM exercises with addition of PLB to mitigate pain with transitional movements. Will complete VVC f/u in 1 week to assess response to HEP. GOALS: to be met in 8 months 1. Patient will participate in interval f/u to complete functional retesting and needs assessment in setting of progressive neurologic condition. __ PLAN: VVC f/u in 1 week to check-in re: LBP Patient Education of Treatment Plan: Patient indicates readiness to learn, verbalizes understanding, agreement and satisfaction with the treatment plan. Denies further questions. /grupo/ Patrizia Mittal DPT, NCS Physical Therapist Signed: 10/07/2024 11:00 PATRIZIA MITTAL [facility]
--- OUTSIDE RECORDS SUMMARY | 2024-10-22 08:11 | XMS_ITS | Encounter Summary ---
Author Name [facility] [place] [facility] [place] [facility] [place] [place] Address [address] [place] [address] Care Team Providers Care Computer Aide Name Role Phone MELITON DOMINGUEZ Primary Care [...] PART A Dec 10, 2017 PART A [id number] [phone] LERUM,ELENI D PATIENT MEDICARE (WNR) MEDICARE (M) PART B Dec 10, 2017 PART B [id number] [phone] LERUM,ELENI D PATIENT MEDICARE (WNR) MEDICARE (M) PART A Dec 10, 2017 PART A [id number] [phone] LERUM,ELENI D PATIENT MEDICARE (WNR) MEDICARE (M) PART B Dec 10, 2017 PART B [id number] [phone] LERUM,ELENI D PATIENT MEDICARE (WNR) MEDICARE (M) PART A Dec 10, 2017 PART A [id number] [phone] LERUM,ELENI D PATIENT MEDICARE (WNR) MEDICARE (M) PART B Dec 10, 2017 PART B [id number] LERUM,ELENI D PATIENT MEDICARE (WNR) MEDICARE (M) PART A Dec 10, 2017 PART A [id number] [phone] LERUM,ELENI D PATIENT MEDICARE (WNR) MEDICARE (M) PART B Dec 10, 2017 PART B [id number] [phone] LERUM,ELENI D PATIENT Selected Encounter This section includes the information on record at [place] for the Encounter. Date/Time Encounter Type Encounter Description Reason Provider Source October 15, 2024 03:00 PM OFFICE O/P EST MOD 30 MIN PRIMARY CARE/MEDICINE ICD-10-CM M54.50 Low back pain, unspecified MELITON DOMINGUEZ Nancy Encounter Template Text not used by [place] Assessments - Encounter Diagnoses This section includes the primary and secondary diagnoses documented for the Encounter. Date/Time Primary/Secondary Diagnosis Diagnosis Name Provider Source October 15, 2024 04:42 PM PRIMARY Low back pain, unspecified MELITON DOMINGUEZ [facility] Plan of Treatment: Future Appointments (+ 6 months) and Future Tests (+/- 45 days) The Plan of Treatment section includes future care activities for the patient from all [place] [facility]. This section includes future appointments and future orders which are active, pending or scheduled. Future Appointments This section includes appointments that were scheduled to occur 6 months from the date of the Encounter, up to a maximum of 20 appointments. The data comes from all [place] treatment facilities. Appointment Date/Time Appointment Type Appointme nt Facility Name October 18, 2024 10:30 AM AMBULATORY - SURGERY [facility] Y[facility] October 25, 2024 10:00 AM [facility] October 29, 2024 01:30 PM AMBULATORY - REHAB MEDICIN E [facility] Nov 13, 2024 09:00 AM AMBULATORY - REHAB MEDICIN [facility] Dec 26, 2024 01:30 PM AMBULATORY - NEUROLOGY [facility] Jan 27, 2025 09:30 [facility] Active, Pending, and Scheduled Orders This section includes a listing of several types of active, pending, and scheduled orders, including clinic medications orders, diagnostic test orders, procedure orders and consult orders; where the start date of the order is 45 days before the date of the Encounter or 45 days after the date of theEncounter. The data comes from all [place] treatment facilities. Test Date/Time Test Type Test Details Facility Name Nov 15, 2024 12:00 AM Laboratory - Chemi stry Order CBC & DIFF BLOOD SP ONCE [facility] Nov 15, 2024 12:00 AM Laboratory - Chemi stry Order LIPID PANEL,NON-FASTING PLASMA SP [facility] Nov 15, 2024 12:00 AM Laboratory - Chemi stry Order BASIC METABOLIC PANEL+MG PLASMA SP [facility] Vital Signs: All taken on the encounter date This section contains inpatient and outpatient Vital Signs collected on the date of the Encounter. Date/Time Temperature Pulse Blood Pressure Respiratory Rate SP02 Pain Height Weight Body Mass Index Source October 15, 2024 02:50 PM 97 86 124/85 16 96 10 229.5 33 [facility] Social History: Smoking Status (Most current) and Tobacco Use (All prior to encounter date) This section includes the most current, and the historical, smoking and tobacco- related health factors from the [place] facility where the Encounter took place. Current Smoking Status This section includes the most current smoking, or tobacco-related health factor, from the [place] facility where the Encounter took place. Date/Time Current Smoking Status Comment Facil ity Mar 20, 2024 11:00 AM VA-TOBACCO FORMER USER [facility] Tobacco Use History This section includes a history of the smoking, or tobacco-related health factors, that were collected on or before the date of the Encounter. The data comes from the [place] facility where the Encounter took place. Date/Time Smoking Status/Tobacco Use Comment F acility Mar 20, 2024 11:00 AM VA-TOBACCO QUIT 15 YRS OR MORE [facility] Jan 18, 2023 10:00 AM VA-TOBACCO FORMER USER [facility] Jan 18, 2023 10:00 AM VA-TOBACCO QUIT 15 YRS OR MORE [facility] Jan 19, 2022 01:00 PM VA-TOBACCO FORMER USER [facility] Jan 19, 2022 01:00 PM VA-TOBACCO QUIT 15 YRS OR MORE [facility] Apr 16, 2021 03:30 PM VA-TOBACCO FORMER USER [facility] Apr 16, 2021 03:30 PM VA-TOBACCO QUIT 15 YRS OR MORE [facility] Mar 11, 2020 09:00 AM VA-TOBACCO FORMER USER [facility] Mar 11, 2020 09:00 AM [place]-TO[place]AC[place] QUIT 15 YRS OR MORE [facility] Radiology Reports: +/- 30 days of the [...] the Encounter. The data comes from all [place] treatment facilities. Date/Time Radiology Report Provider Source October 15, 2024 03:22 PM LUMBAR SPINE MIN 4 VIEWS: REED WALLACE [id number] -[id number] M Exm Date: OCTOBER 15, 2024@15:22 Req Phys: MELITON DOMINGUEZ Pat Loc: [facility] PACT IVORY 4E (Req'g Loc) Img Loc: MAIN X-RAY Service: [place] [address] (Case [id number] COMPLETE) LUMBAR SPINE MIN 4 VIEWS (RAD Detailed) CPT:97230 Reason for Study: severe LBP Clinical History: h/o parkinson, c/o severe low back pain, left sided radiating across the back. No recall of injury. Please justin pt is waiting in clinic My pager number on record is: [phone]. I confirm that the pager number/cell phone number above is correct for reporting critical results. Trainees only: Enter your staff provider's info here: LAST CREATININE 0.7 (03/20/24) Report Status: Verified Date Reported: OCTOBER 15, 2024 Date Verified: OCTOBER 15, 2024 Medical Numerical Control Operator E-Sig:/ES/WERNER SY MD Report: EXAMINATION: LUMBAR [...] Primary Interpreting Staff: WERNER SY MD, RADIOLOGIST (Medical Numerical Control Operator) /RTS WERNER SY [facility] Oct 03, 2024 10:06 AM US AORTA (P): REED WALLACE [id number] -1950 M Exm Date: OCT 03, 2024@10:06 Req Phys: DOMINGUEZMELITON Pat Loc: [facility] (Req'g Loc) Img Loc: Ultrasound Imaging Service: [place] [address] (Case [id number] COMPLETE) US RETROPERITONEAL LIMITED (US Detailed) CPT:66558 Reason for Study: f/u illiac aneurysm Clinical History: [place] IS NOT under investigation for COVID-19 or is COVID-19 negative f/u illiac aneurysm for interval change Responsible provider name and phone number to notify for critical findings if other than user placing the order and pager listed below: User placing orders pager: [phone] LAST CREATININE 0.7 (08/22/23) Report Status: Verified Date Reported: OCT 03, 2024 Date Verified: OCT 03, 2024 Medical Numerical Control Operator E-Sig:/ES/DORINDA MEDEROS Report: Abdominal Aorta Ultrasound [...] PATIENT'S FINDINGS ENDS HERE. Recommendations from the [place] Vascular Surgery Department, updated 2023: Small infrarenal [...] AM Primary Interpreting Staff: DORINDA MEDEROS, RADIOLOGIST (Medical Numerical Control Operator) Primary Interpreting Resident: ANIYAH HAIDER DO, RETAIL FINANCIAL ANALYST /DORINDA THOMAS [facility] Encounter Notes: All associated encounter notes This section contains the clinical notes associated to the Encounter. Date/Time Encounter Note(s) Provider Source October 15, 2024 03:00 PM INTERNAL MEDICINE NOTE: LOCAL TITLE: MEDICINE CLINIC NOTE STANDARD TITLE: INTERNAL MEDICINE NOTE DATE OF NOTE: OCTOBER 15, 2024@15:00 ENTRY DATE: OCTOBER 15, 2024@12:22:30 AUTHOR: MELITON DOMINGUEZ EXP COSIGNER: URGENCY: STATUS: COMPLETED Nurses notes reviewed and agree. This note is an edited version based on my previous clinic visit notes and/or based on review of [facility] records. Chief complaint: LBP. Last seen in 03/2024 HPI: The patient is a 73 year old MALE HTN, Parkinson, cholelithiasis, iliac aneurysm, focal foot dystonia presenting here with for LBP - left sided LBP radiating across the back. No LE radiating pain. Started 2 weeks ago. Unchanged for the last 2 weeks. NO recall on injury or trauma. Lying down on left side makes it better. Pain is worse with standing up and when the car is turnning around the corner even thru he is sitting in the car doing nothing. No fever. [place] like back spasm. No loss of bowel or bladder control. Tried heating pad, ice, motrin or advil (400mg), tylenol did not help. No groin numbness. No back surgery. Tood tizanidine 1 tablet but it does not do anything per patient. - no falls but slightly imbalanced - [facility] - f/u rehab medicine for focal foot dystonia s/p botulinum injection and right shoulder pain s/p steroid injection 04/10/23 with no relief, s/p Ultrasound- guided platelet rich plasma therapy on 12/07/23 Review of Systems: No CP No SOB. No dysuria/hematuria. No abdominal pain/N/V/D. Chronic constipation FH: - Cancer:grandfather-lung cancer (smoker), unlce-colon ca at age mid 70s, no prostate cancer - DM: father-borderline DM - ASCVD: father-MIx 3 at age mid 70s - Other: none SH: , 2 daughters. Retired. Worked as teacher for [employer] - Tobacco: quit smoking in 1993. Smoked 1ppd x 20 yr - ETOH: 1 glass of wine (less than 4oz) 3x per week. - Drugs: none Past medical history: 1. HTN 2. Parkinson - dxed in 2014. Has seen neurologist in both [facility] and [facility] 3. Genital herpes 4. ED - viagra 100mg ineffective, has seen Urology 5. Hyperlipidemia 6. s/p Left ulnar nerve transpostion in 2018 7. s/p right shoulder surgery in 2005 for shoulder impingement 8. Polyneuropathy - seen neurology, had EMG - tingling, numbness in both feet, R>L 9. Intertriginous dermatitis/Actinic keratosis 9. 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 Dissection flap in left BRANDO to its bifurcation, similar to prior outside CT dated 10/15/2020. Focal dissection flap in the mid external iliac artery with ectasia also noted. Right common iliac artery aneurysm measuring 2.1 cm, previously 2.1 cm. Dissection flap in right distal ICA and proximal to mid EIA, which appeared less conspicuous on prior nonenhanced CT. Focal dissections and ectasia is also noted in the superior mesenteric artery and bilateral renal artery branches as described above. - recommend observation by vascular consult 10. Ankle edema, improved after stopping Amlodipine. - may have chronic venous insuff per history. BNP 17, no cllinical CHF. 11. Hepatic steatosis - RUQ US 06/26/2020 Diffusely increased echogenicity of the liver with mildly coarsened echotexture suggestive hepatic steatosis versus chronic liver disease. Cholelithiasis without evidence of acute cholecystitis. 12. Cholelithiasis/Mild elevation of t bili - RUQ us 06/26/20 as above - CT abd and pelvis 10/15/2020: There is a 1.8cm calcified gallstone noted. Aneurysm of the common iliac arteries are present bilaterally mearsuring up to 2cm with a dissection flap seen in the left common iliac artery to its bifurcation. The chronicity of this finding is uncertain. - CTA 01/2021 Stable 2.0 cm calcified gallstone. 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 13. BPH/Mild prostatomegaly seen on abd CT. 14. Right shoulder pain - xray 04/2021 No acute displaced fracture. Moderate degenerative changes of the right acromioclavicular and right glenohumeral joint. - MRI RIGHT shoulder 11/04/23 Low-grade partial-thickness intrasubstance tearing of the subscapularis tendon, allowing slight medial subluxation of the long biceps tendon. Mild decrease in subscapularis muscle bulk. Minimal low-grade partial-thickness insertional tearing of the infraspinatus tendon. Mild tendinopathy of the posterior distal supraspinatus tendon. Chronic appearing intrasubstance tearing of the long biceps tendon at the proximal bicipital groove. Debris versus synovial hypertrophy within the biceps tendon sheath. Moderate to advanced acromioclavicular joint degenerative change, abutting the supraspinatus. Moderate glenohumeral osteoarthritis with areas of high-grade cartilage loss with subchondral cystic change. Small glenohumeral joint effusion. - seen rehab medicine 15. Dystrophic nail/[place] 16. Thrombocytopenia - smear 07/2022 Slight thrombocytopenia with nondiagnostic peripheral blood smear morphology. No morphologic evidence of hemolysis or dysplasia 17. Orthostatic hypotension 18. Leg edema - BNP 17, no cllinical CHF - improved after stopping Amlodipine, may have chronic venous insuff per history. 19. Dystonia/Focal foot dystonia - seen neurology s/p Botulinum toxin injections Allergies: AMLODIPINE (Jun 17, 2020) Active and Recently Outpatient Medications (including Supplies): Active Outpatient Medications Status 1) ATORVASTATIN CALCIUM 20MG TAB TAKE ONE TABLET BY ACTIVE MOUTH AT BEDTIME FOR CHOLESTEROL 2) CARBIDOPA 48.75MG/LEVODOPA 195MG SA CAP TAKE 3 ACTIVE CAPSULES BY MOUTH THREE TIMES A DAY FOR PARKINSON DISEASE SUGGEST TAKING AT 6 AM, 12 NOON AND 6 PM. STOP ENTACAPONE 3) CARBIDOPA 50/LEVODOPA 200MG SA TAB TAKE 1 TABLET BY ACTIVE MOUTH AT BEDTIME FOR PARKINSON DISEASE 4) CHLORTHALIDONE 25MG TAB TAKE ONE-HALF TABLET BY MOUTH ACTIVE EVERY MORNING FOR BLOOD PRESSURE 5) CLINDAMYCIN PHOSPHATE 1% LOTION APPLY TO AFFECTED ACTIVE AREA TOPICALLY TWICE A DAY FOR RASH UNTIL RESOLVED 6) DOCUSATE NA 100MG CAP TAKE TWO CAPSULES BY MOUTH ACTIVE TWICE A DAY FOR CONSTIPATION 7) LISINOPRIL 20MG TAB TAKE ONE TABLET BY MOUTH EVERY ACTIVE DAY FOR BLOOD PRESSURE 8) MELATONIN 3MG CAP/TAB TAKE 3 TABLETS BY MOUTH AT ACTIVE BEDTIME FOR SLEEP 9) METOPROLOL SUCCINATE 50MG SA TAB TAKE ONE TABLET BY ACTIVE MOUTH EVERY DAY FOR BLOOD PRESSURE 10) POLYETHYLENE GLYCOL 3350 ORAL PWDR TAKE 17 GRAMS BY ACTIVE MOUTH THREE TIMES A WEEK FOR CONSTIPATION 11) TIZANIDINE HCL 2MG TAB TAKE ONE TABLET BY MOUTH EVERY ACTIVE EVENING AND TAKE ONE TABLET EVERY EVENING NEEDED FOR DYSTONIA 12) UREA 20% CREAM APPLY THIN LAYER TOPICALLY AT BEDTIME ACTIVE FOR CALLUSES ON RIGHT FOOT 13) VANICREAM TOP CREAM APPLY THIN LAYER TOPICALLY EVERY ACTIVE DAY FOR DRY SKIN IDEALLY WITHIN 3 MINUTES AFTER BATH OR SHOWER. Inactive Outpatient Medications Status 1) CARBIDOPA 25/LEVODOPA 250MG TAB TAKE 1 TABLET BY DISCONTINUED MOUTH FIVE TIMES A DAY 2) CARBIDOPA 50/LEVODOPA 200MG SA TAB TAKE 1 TABLET BY DISCONTINUED MOUTH AT BEDTIME FOR PARKINSON DISEASE 3) DOCUSATE NA 100MG CAP TAKE TWO CAPSULES BY MOUTH DISCONTINUED TWICE A DAY FOR CONSTIPATION 4) ENTACAPONE 200MG TAB TAKE ONE TABLET BY MOUTH FIVE DISCONTINUED TIMES A DAY - TAKE WITH EACH DOSE OF CARBIDOPA 25/LEVODOPA 250MG TABLETS 5) LIDOCAINE 5% PATCH APPLY 1 PATCH TOPICALLY EVERY DAY NEEDED FOR UP TO 12 HOURS FOR PAIN - PLACE ON RIGHT SHOULDER 6) MELATONIN 3MG CAP/TAB TAKE 3 TABLETS BY MOUTH AT DISCONTINUED BEDTIME FOR SLEEP (EDIT) 7) POLYETHYLENE GLYCOL 3350 ORAL PWDR TAKE 17 GRAMS BY DISCONTINUED MOUTH THREE TIMES A WEEK FOR CONSTIPATION 20 Total Medications OTC, Herbals, and Private MD medications or additional medication information: Physical Exams: Gloves are used when examining patient Vitals: Blood Pressure: 124/85 (10/15/2024 14:50) Pulse: 86 (10/15/2024 14:50) Respiration: 16 (10/15/2024 14:50) Temperature: 97 F [36.1 C] (10/15/2024 14:50) Weight: 229.5 lb [104.10 kg] (10/15/2024 14:50) Height: 69.5 in [176.5 cm] (04/16/2021 15:35) BMI: 33.5 O2 Sat: 96% (10/15/2024 14:50) Pain: 10 (10/15/2024 14:50) O2 Sat: Gen: AAO, nad, pt appears at his stated age, interactive and cooperative HEENT: Per, eomi, no scleral icterus, no conjunctivitis. Neck: no JVD Ext: 1+ edema matthew. No lumbar spinal tenderness, nl swelling, no lesions, no bruises No SI joint tenderness matthew Neg straight leg raising test matthew Neg hip Rom matthew JULIO and FADDIR neg matthew Nl hip flexion matthew, nl knee extension matthew, nl dorsiflexion matthew Neuro: HWANG, grossly intact. Lab Data: (x)Patient was informed of available lab, imaging, and other study results associated with today's visit. SMA-7: SODIUM 141 (03/20/24) POTASSIUM 4.5 (03/20/24) CHLORIDE 106 (03/20/24) CO2 27 (03/20/24) UREA NITROGEN 20 (03/20/24) CREATININE 0.7 (03/20/24) GLUCOSE 117 H (03/20/24) CBC: WBC____ HGB____ HCT____ PLT ____ HA1C: Collection DT Specimen Test Name Result Units Ref Range 03/20/2024 10:17 BLOOD !! HEMOGLOBIN A1C 5.6 % 4.0 - 6.0 !! Indicates COMMENTS AVAILABLE...Refer to Interim Lab Report. No data available Lipids: CHOLESTEROL____ HDL____ LDL CALCULATION____ LDL Measured: TRIGLYCERIDE____ LFTs: SGOT 29 (03/20/24) SGPT <7 (03/20/24) PSA 0.51 SERUM (03/20/24 10:17) 0.48 SERUM (01/18/23 09:00) 0.62 SERUM (01/19/22 08:57) 0.56 SERUM (03/11/20 10:24) TSH 0.95 (03/20/24) URIC ACID____ Urine Microalbumin: ALB/CREAT RATIO____ Other Lab Data: EKG: Imaging: Report Status: Verified Date Reported: OCTOBER 15, 2024 Date Verified: OCTOBER 15, 2024 Medical Numerical Control Operator E-Sig:/ES/WERNER SY MD Report: EXAMINATION: LUMBAR [...] fractures. SI joints are unremarkable. Aortic calcification. Assessment/Plan: 1. HTN: BP good control, goal <140/90. - continue Metoprolol SA 50mg qday and Lisinopril 20mg qday - continue chlorthalidone 12.5mg qday 2. Parkinson: Not interested in DBS per neuro - on Sinemet and Entacapone. Also on Tizanidine prn for dystonia. - [facility] 3. Hyperlipidemia: discussed 10 yr ACC/AHA risk. Goal LDL<100 given iliac aneurysm. Chol good control (total 137, LDL 85) except for low HDL 01/2023, LFTs ok 03/2024. - continue Atorvastatin 20mg qhs 4. Iliac aneurysm, matthew with a dissection flap seen in the left common iliac artery to its bifurcation: Last CTA 01/2021 stable flap, discharged from vascular clinic. Stable u/s 09/2024 - Continue Iliac aneurysms f/u per vascular until they reach 3.5cm - will repeat 1 yr US (ordered in 09/2025) 5. Leg edema likely venous insuff - continue leg elevation and Chlorthalidone as above 6. Slight thrombocytopenia: Smear neg 07/2022. CBC stable 08/2023 thrombocytopenia 08/22/23. Etiology not clear, ?ETOH (pt has decreased etoh to once a week) - will follow 7. Genital herpes: no recurrence, pt stopped daily regimen. - On Valcyclovir 500mg bid x 3 days prn 8. LBP, left sided: no radiculopathy signs or symptoms. Like DJD vs msk pain. Xray with no fractures or dislocation except for DJD - Acetaminophen 1,000mg every 6 hours x 5 days in a row, then as needed after that (pt prefers to buy OTC) - Medrol dose chema to pickup. Avoid ibuprofen or naproxen while being on Medrol Dosepak - May use diclofenac gel four times daily to apply to the affected area - May use Tizanidine 2mg take 1 tablet three times daily as needed for muscle spasm (already has at home) - Drink plenty of water to keep yourself well hydrated - continue PT (pt has seen PT and was given exercise) but avoid overdoing it 9. HCM: - colorectal screen: Personal history of likely adenoma polyps at first colonoscopy at age 52. Had 2nd colonoscopy around age 60, no polyps, normal per patient. Last colonoscopy 01/2021 (age 70) Hyperplastic polyp. Repeat in 10 yrs per GI (due in 01/2031). - HIV screen: NEG 03/11/2020 - Hepatitis panel: Hep A immune, Hep B and C negative 03/11/2020 - TSH Ok 03/20/2024 - PSA ok 03/20/2024 (less than 1). Had extensive discussion, pt prefers to continue to check PSA. Will continue annual check - Vit D nl (21) 08/22/23 Tobacco: () Pt smokes or uses tobacco products and was counseled to d/c. Medications including bupropion, nicotine replacement therapy have been discussed, and will be ordered at patient request. () Pt is not using tobacco products now but has used them in the past year. (Pt counseled to remain abstinent.) (x) Pt hasn't used tobacco products for a year or more. () Pt has never used tobacco products. Recall 8 mo with BMP, CBC. lipid in 11/2024 More than 50% of this 25 min visit spent in counselling and coordinating care regarding reviewing labs, medications, discussing medical issues mentioned above and answering patient's questions. (x) Patient/Caregiver indicates readiness to learn, verbalizes understanding, agreement and satisfaction with the treatment plan. (x) [place]/Caregiver indicates readiness to learn and has been instructed on action, dose, frequency, and side effects of the medication. /Caregiver verbalizes understanding. Medication Reconciliation: Education Evaluations *Was medication education provided for NEW medications or CHANGES to medications? (including medication name, dose, route, reason for use, and potential side effects). Yes. Verbal education was provided to patient/caregiver and patient/caregiver verbalized understanding. TERATOGENIC MED & CONTRACEPTION REVIEW (Optional)... MEDICATION RECONCILIATION Active and Recently Outpatient Medications (including Supplies): Issue Date Status Last Fill Active Outpatient Medications Refills Expiration 1) ATORVASTATIN CALCIUM 20MG TAB Qty: 90 ACTIVE Issu:04-29-24 for 90 days Sig: TAKE ONE TABLET BY Refills: 3 Last:04-29-24 MOUTH AT BEDTIME FOR CHOLESTEROL Expr:04-30-25 2) CARBIDOPA 48.75MG/LEVODOPA 195MG SA CAP ACTIVE Issu:09-11-24 Qty: 810 for 90 days Sig: TAKE 3 Refills: 3 Last:09-11-24 CAPSULES BY MOUTH THREE TIMES A DAY Expr:09-12-25 FOR PARKINSON DISEASE SUGGEST TAKING AT 6 AM, 12 NOON AND 6 PM. STOP ENTACAPONE 3) CARBIDOPA 50/LEVODOPA 200MG SA TAB Qty: ACTIVE Issu:09-11-24 30 for 30 days Sig: TAKE 1 TABLET BY Refills: 3 Last:09-11-24 MOUTH AT BEDTIME FOR PARKINSON DISEASE Expr:09-12-25 4) CHLORTHALIDONE 25MG TAB Qty: 45 for 90 ACTIVE Issu:01-19-24 days Sig: TAKE ONE-HALF TABLET BY Refills: 1 Last:09-03-24 MOUTH EVERY MORNING FOR BLOOD PRESSURE Expr:01-19-25 5) CLINDAMYCIN PHOSPHATE 1% LOTION Qty: 60 ACTIVE Issu:05-08-24 for 30 days Sig: APPLY TO AFFECTED Refills: 11 Last:05-08-24 AREA TOPICALLY TWICE A DAY FOR RASH Expr:05-09-25 UNTIL RESOLVED 6) DOCUSATE NA 100MG CAP Qty: 400 for 90 ACTIVE Issu:09-23-24 days Sig: TAKE TWO CAPSULES BY MOUTH Refills: 3 Last:09-24-24 TWICE A DAY FOR CONSTIPATION Expr:09-24-25 7) LISINOPRIL 20MG TAB Qty: 90 for 90 days ACTIVE Issu:02-02-24 Sig: TAKE ONE TABLET BY MOUTH EVERY Refills: 2 Last:06-26-24 DAY FOR BLOOD PRESSURE Expr:02-02-25 8) MELATONIN 3MG CAP/TAB Qty: 180 for 60 ACTIVE Issu:05-28-24 days Sig: TAKE 3 TABLETS BY MOUTH AT Refills: 3 Last:05-28-24 BEDTIME FOR SLEEP Expr:05-29-25 9) METOPROLOL SUCCINATE 50MG SA TAB Qty: ACTIVE Issu:04-07-24 90 for 90 days Sig: TAKE ONE TABLET Refills: 2 Last:09-03-24 BY MOUTH EVERY DAY FOR BLOOD PRESSURE Expr:04-08-25 10) POLYETHYLENE GLYCOL 3350 ORAL PWDR Qty: ACTIVE Issu:09-23-24 510 for 90 days Sig: TAKE 17 GRAMS BY Refills: 3 Last:09-24-24 MOUTH THREE TIMES A WEEK FOR Expr:09-24-25 CONSTIPATION 11) TIZANIDINE HCL 2MG TAB Qty: 180 for 90 ACTIVE Issu:11-28-23 days Sig: TAKE ONE TABLET BY MOUTH Refills: 1 Last:11-28-23 EVERY EVENING AND TAKE ONE TABLET Expr:11-28-24 EVERY EVENING NEEDED FOR DYSTONIA 12) UREA 20% CREAM Qty: 90 for 30 days ACTIVE Issu:05-08-24 Sig: APPLY THIN LAYER TOPICALLY AT Refills: 11 Last:05-08-24 BEDTIME FOR CALLUSES ON RIGHT FOOT Expr:05-09-25 13) VANICREAM TOP CREAM Qty: 454 for 30 ACTIVE Issu:05-08-24 days Sig: APPLY THIN LAYER TOPICALLY Refills: 11 Last:05-08-24 EVERY DAY FOR DRY SKIN IDEALLY WITHIN Expr:05-09-25 3 MINUTES AFTER BATH OR SHOWER. Issue Date Status Last Fill Pending Outpatient Medications Refills Expiration 1) DICLOFENAC NA 1% TOP GEL Qty: 100 Sig: PENDING APPLY 4 GRAMS TOPICALLY FOUR TIMES A Refills: 0 DAY 2) METHYLPREDNISOLONE 4MG TAB DOSEPAK,21 PENDING Qty: 1 Sig: TAKE ACCORDING TO Refills: 0 DIRECTIONS IN PACKAGE BY MOUTH DIRECTED Issue Date Status Last Fill Inactive Outpatient Medications Refills Expiration 1) CARBIDOPA 25/LEVODOPA 250MG TAB Qty: DISCONTINUED Issu:02-20-24 450 for 90 days Sig: TAKE 1 TABLET BY Refills: 2 Last:02-21-24 MOUTH FIVE TIMES A DAY Expr:02-20-25 2) CARBIDOPA 50/LEVODOPA 200MG SA TAB Qty: DISCONTINUED Issu:02-20-24 30 for 30 days Sig: TAKE 1 TABLET BY Refills: 3 Last:02-21-24 MOUTH AT BEDTIME FOR PARKINSON DISEASE Expr:02-20-25 3) DOCUSATE NA 100MG CAP Qty: 400 for 90 DISCONTINUED Issu:04-23-24 days Sig: TAKE TWO CAPSULES BY MOUTH Refills: 3 Last:04-23-24 TWICE A DAY FOR CONSTIPATION Expr:04-24-25 4) ENTACAPONE 200MG TAB Qty: 450 for 90 DISCONTINUED Issu:02-20-24 days Sig: TAKE ONE TABLET BY MOUTH Refills: 1 Last:03-31-24 FIVE TIMES A DAY - TAKE WITH EACH DOSE Expr:02-20-25 OF CARBIDOPA 25/LEVODOPA 250MG TABLETS 5) LIDOCAINE 5% PATCH Qty: 30 for 30 days Issu:10-09-23 Sig: APPLY 1 PATCH TOPICALLY EVERY DAY Refills: 1 Last:10-10-23 NEEDED FOR UP TO 12 HOURS FOR PAIN Expr:10-09-24 - [address] ON RIGHT SHOULDER 6) MELATONIN 3MG CAP/TAB Qty: 180 for 60 DISCONTINUED Issu:07-04-23 days Sig: TAKE 3 TABLETS BY MOUTH AT (EDIT) Last:07-05-23 BEDTIME FOR SLEEP Refills: 3 Expr:07-04-24 7) POLYETHYLENE GLYCOL 3350 ORAL PWDR Qty: DISCONTINUED Issu:11-28-23 510 for 90 days Sig: TAKE 17 GRAMS BY Refills: 3 Last:11-28-23 MOUTH THREE TIMES A WEEK FOR Expr:11-28-24 CONSTIPATION 22 Total Medications /es/ MELITON DOMINGUEZ MD Staff Physician Signed: 10/15/2024 16:42 MELITON DOMINGUEZ [facility] October 15, 2024 02:51 PM INTERNAL MEDICINE OUTPATIENT NOTE: LOCAL TITLE: MEDICINE CLINIC NURSING NOTE STANDARD TITLE: INTERNAL MEDICINE OUTPATIENT NOTE DATE OF NOTE: OCTOBER 15, 2024@14:51 ENTRY DATE: OCTOBER 15, 2024@14:51:15 AUTHOR: ENRIQUE HARDWICK EXP COSIGNER: URGENCY: STATUS: COMPLETED TYPE OF VISIT: Appointment Check In Type of appointment: In-person appointment REASON FOR VISIT: Lower back pain ALLERGIES: AMLODIPINE (Jun 17, 2020) VITAL SIGNS: Blood Pressure: 124/85 (10/15/2024 14:50) Pulse: 86 (10/15/2024 14:50) Respiration: 16 (10/15/2024 14:50) Temperature: 97 F [36.1 C] (10/15/2024 14:50) Weight: 229.5 lb [104.10 kg] (10/15/2024 14:50) Height: 69.5 in [176.5 cm] (04/16/2021 15:35) BMI: 33.5 O2 Sat: 96% (10/15/2024 14:50) Pain: 10 (10/15/2024 14:50) COVID-19 Immunization: Refused Pfizer Monovalent COVID-19 vaccine Immunization: COVID-19 (PFIZER), MRNA, LNP-S, PF, ZANE-SUCROSE, 30 MCG/0.3 ML (AGES 12+ YEARS) Refusal Reason: PATIENT DECISION Patient refuses all immunization(s) in the COVID-19 group Date Documented: 10/15/24 14:52 Depression Screening: Perform PHQ-2 A PHQ-2 screen was performed. The score was 0 which is a negative screen for depression. Over the past two weeks, how often have you been bothered by the following problems? 1. Little interest or pleasure in doing things Not at all 2. Feeling down, depressed, or hopeless Not at all RSV Immunization: Respiratory Syncytial Virus (RSV) Vaccine: Refused Pfizer (Abrysvo, RSVpreF vaccine). Immunization: RSV, BIVALENT, PROTEIN SUBUNIT RSVPREF, DILUENT RECONSTITUTED, 0.5 ML, PF Refusal Reason: PATIENT DECISION Patient refuses all immunization(s) in the RSV group Date Documented: 10/15/24 14:53 Homelessness/Food Insecurity Screen: In the past 2 months, have you been living in stable housing that you own, rent, or stay in as part of a household? Yes - Living in stable housing. Are you worried or concerned that in the next 2 months you may NOT have stable housing that you own, rent, or stay in as part of a household? No - Not worried about housing near future The reports the following: Within the past 12 months, you worried whether your food would run out before you got money to buy more. Never true Within the past 12 months, the food you bought just didn't last and you didn't have money to get more. Never true Food Assistance Programs [facility] Food Assistance [facility] /grupo/ ENRIQUE HARDWICK LPN, LPN Signed: 10/15/2024 14:54 ENRIQUE HARDWICK [facility]
--- OUTSIDE RECORDS SUMMARY | 2024-10-22 08:11 | XMS_ITS | Encounter Summary ---
Author Name [facility] [place] [facility] [place] [place] Address [address] [place] [address] Care Team Providers Care Stem Frazer Name Role Phone MELITON DOMINGUEZ Primary Care [...] PART A Dec 10, 2017 PART A [id number] [phone] LERUM,ELENI D PATIENT MEDICARE (WNR) MEDICARE (M) PART A Dec 10, 2017 PART A [id number] [phone] LERUM,ELENI D PATIENT MEDICARE (WNR) MEDICARE (M) PART B Dec 10, 2017 PART B [id number] [phone] LERUM,ELENI D PATIENT MEDICARE (WNR) MEDICARE (M) PART B Dec 10, 2017 PART B [id number] [phone] LERUM,ELENI D PATIENT MEDICARE (WNR) MEDICARE (M) PART A Dec 10, 2017 PART A [id number] [phone] LERUM,ELENI D PATIENT MEDICARE (WNR) MEDICARE (M) PART B Dec 10, 2017 PART B [id number] LERUM,ELENI D PATIENT MEDICARE (WNR) MEDICARE (M) PART A Dec 10, 2017 PART A [id number] [phone] LERUM,ELENI D PATIENT MEDICARE (WNR) MEDICARE (M) PART B Dec 10, 2017 PART B [id number] [phone] LERUM,ELENI D PATIENT Selected Encounter This section includes the information on record at [place] for the Encounter. Date/Time Encounter Type Encounter Description Reason Provider Source Sep 10, 2024 09:30 AM OFFICE O/P [place] 60 MIN NEUROLOGY ICD-10-CM G20.B2 Parkinson's disease with dyskinesia, with fluctuations TIM TAMAYO Encounter Template Text not used by [place] Assessments - Encounter Diagnoses This section includes the primary and secondary diagnoses documented for the Encounter. Date/Time Primary/Secondary Diagnosis Diagnosis Name Provider Source Sep 11, 2024 02:11 PM PRIMARY Parkinson's disease with dyskinesia, with fluctuations PARKINSON,KATHY [facility] Sep 11, 2024 02:11 PM SECONDARY Other dystonia PARKINSON,KATHY [facility] Plan of Treatment: Future Appointments (+ 6 months) and Future Tests (+/- 45 days) The Plan of Treatment section includes future care activities for the patient from all [place] [facility] This section includes future appointments and future orders which are active, pending or scheduled. Future Appointments This section includes appointments that were scheduled to occur 6 months from the date of the Encounter, up to a maximum of 20 appointments. The data comes from all [place] treatment facilities. Appointment Date/Time Appointment Type Appointme nt Facility Name Sep 19, 2024 02:00 PM AMBULATORY - REHAB MEDICIN [facility] Oct 03, 2024 10:00 AM [facility] Oct 07, 2024 10:00 AM AMBULATORY - [facility]IC[facility] October 15, 2024 03:00 PM [facility] October 18, 2024 10:30 AM AMBULATORY - SURGERY MINNE KARRIE [facility] October 25, 2024 10:00 AM AMBULATORY - MEDICINE [facility] October 29, 2024 01:30 PM AMBULATORY - REHAB MEDICIN [facility] Nov 13, 2024 09:00 AM AMBULATORY - REHAB MEDICIN [facility] Dec 26, 2024 01:30 PM AMBULATORY - NEUROLOGY [facility] Jan 27, 2025 09:30 AM AMBULATORY - REHAB MEDICIN [facility] Vital Signs: All taken on the encounter date This section contains inpatient and outpatient Vital Signs collected on the date of the Encounter. Date/Time Temperature Pulse Blood Pressure Respiratory Rate SP02 Pain Height Weight Body Mass Index Source Sep 10, 2024 09:29 AM 66 116/81 18 94 0 231.7 34 [facility] Social History: Smoking Status (Most current) and Tobacco Use (All prior to encounter date) This section includes the most current, and the historical, smoking and tobacco- related health factors from the [place] facility where the Encounter took place. Current Smoking Status This section includes the most current smoking, or tobacco-related health factor, from the [place] facility where the Encounter took place. Date/Time Current Smoking Status Comment Wendy ity Mar 20, 2024 11:00 AM VA-TOBACCO FORMER USER [facility] Tobacco Use History This section includes a history of the smoking, or tobacco-related health factors, that were collected on or before the date of the Encounter. The data comes from the [place] facility where the Encounter took place. Date/Time Smoking Status/Tobacco Use Comment F acility Mar 20, 2024 11:00 AM VA-TOBACCO QUIT [address] [facility] Jan 18, 2023 10:00 AM VA-TOBACCO FORMER USER [facility] Jan 18, 2023 10:00 AM VA-TOBACCO QUIT [address] [facility] Jan 19, 2022 01:00 PM VA-TOBACCO FORMER USER [facility] Jan 19, 2022 01:00 PM VA-TOBACCO QUIT [address] [facility] Apr 16, 2021 03:30 PM VA-TOBACCO FORMER USER [facility] Apr 16, 2021 03:30 PM VA-TOBACCO QUIT [address] [facility] Mar 11, 2020 09:00 AM VA-TOBACCO FORMER USER [facility] Mar 11, 2020 09:00 AM VA-TOBACCO QUIT [address] [facility] Radiology Reports: +/- 30 days of [...] the Encounter. The data comes from all [place] treatment facilities. Date/Time Radiology Report Provider Source Oct 03, 2024 10:06 AM US AORTA (P): ANJUM WALLACE [id number] -[id number] M Exm Date: OCT 03, 2024@10:06 Req Phys: MELITON DOMINGUEZ Pat Loc: [facility] PT MARY JO Doretha (Req'g Loc) Img Loc: Ultrasound Imaging Service: [place] [address] (Case [id number] COMPLETE) US RETROPERITONEAL LIMITED (US Detailed) CPT:76024 Reason for Study: f/u illiac aneurysm Clinical History: Ina IS NOT under investigation for COVID-19 or is COVID-19 negative f/u illiac aneurysm for interval change Responsible provider name and phone number to notify for critical findings if other than user placing the order and pager listed below: User placing orders pager: [phone] LAST CREATININE 0.7 (08/22/23) Report Status: Verified Date Reported: OCT 03, 2024 Date Verified: OCT 03, 2024 Cork Pressing Machine Operator E-Sig:/ES/DORINDA MEDEROS Report: Abdominal Aorta Ultrasound [...] PATIENT'S FINDINGS ENDS HERE. Recommendations from the [place] Vascular Surgery Department, updated 2023: Small infrarenal [...] AM Primary Interpreting Staff: DORINDA MEDEROS, RADIOLOGIST (Cork Pressing Machine Operator) Primary Interpreting Resident: ANIYAH HAIDER DO, SECURITY FLEX UTILITY OFFICER /DORINDA [facility] Encounter Notes: All associated encounter notes This section contains the clinical notes associated to the Encounter. Date/Time Encounter Note(s) Provider Source Sep 10, 2024 12:16 PM NEUROLOGY ATTENDIN G NOTE: LOCAL TITLE: NEUROLOGY CLINIC NOTE STANDARD TITLE: NEUROLOGY ATTENDING NOTE DATE OF NOTE: SEP 10, 2024@12:16 ENTRY DATE: SEP 10, 2024@12:17:05 AUTHOR: KATHY FARNSWORTH EXP COSIGNER: URGENCY: STATUS: COMPLETED NEUROLOGY CLINIC NOTE Has ADDENDA Neurology Clinic Note Anjum Wallace is a 73 year old male who is followed in Neurology clinic for Parkinson's disease. He was followed by Dr. Alicia and was last seen on 05/31/24. At the time, no changes were made. He also follows with neuro rehab, PT, OT and LAWN CARE TECHNICIAN. We briefly reviewed his diagnosis of Parkinson's disease. He started having difficulty with fine motor movements in his left hand as early as 2013, if not earlier, these symptoms progressed and when he was living in [place], he was evaluated by neurology, a DATscan was completed showing findings consistent with Parkinson's disease. He was started on Carbidopa/Levodopa and has found benefit. He has required more frequent doses of CD/LD and also was started on entacapone. 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 Currently, his symptoms include tremor most predominant in his left hand, stiffness and rigidity on waking, increased symptoms with stress or cognitive challenges and cramping and pigeon-toeing in his left foot. With regard to the cramping in his left foot, he has not noticed a specific pattern, he thinks it gets worse just before he takes his next dose of CD/LD. It can occur at night as well. He takes CD/LD and entacapone every two hours, typically at 6am, 8am, 10am, 12pm, 2pm and 4pm then he takes his bedtime dose around 11pm. He has had more difficulty with cognition, particularly with calculations but notes that it has not impacted his functioning, he is able to drive safely, no near misses or accidents, his feels safe when driving with him. He manages his own medications and finances. He has not had any falls, he is cautious with waling. He has dizziness at times, but it is not associated with position changes. He does act out his dreams occasionally, he had not for a while but did last night and accidentally hit his while he was sleeping. He takes melatonin every once and a while but has not taken it recently. He does feel like his voice is softer, no issues with swallowing. He and his are going to [place] today for one week. Exam: BP 116/81, P 66, afebrile He last took his medication at 9am. The patient is awake, alert, attentive to conversation. Speech is hypophonic but no dysarthria, naming and repetition intact. Follows commands. Extraocular movements intact, face is symmetric. Rigidity present in bilateral UE. He has a resting tremor L>R. Intermittently throughout visit, noted to have dyskinesias in left arm. Moving all extremities independently, sensation is intact to light touch in all extremities, FNF without ataxia or dysmetria. Able to stand without using arms, has a steady but slowed gait, mildly stooped posture when sitting and with walking. Decreased arm swing and tremor present in right arm when walking. In summary, Anjum Wallace is a 73 year old with Parkinson's disease. He shares that his current regimen helps his tremor and movements but he also describes dyskinesias and dystonia in left foot. The cramping and dystonic movement in left foot is bothersome to him. He describes wearing off sensation when he nears the next dose of his CD/LD and entacapone. Given dystonia/dyskinesias, we discussed with the patient that it may be beneficial to trial Rytary. The patient was interested and in agreement. Plan: - stop entacapone and carbidopa-levodopa during day - start Rytary, will place prior-authorization and mail prescription once approved; plan to dose 4 times daily - continue bedtime dose of Carbidopa/Levodopa 50mg/200mg - return to clinic in 3 months The patient was seen and discussed with Dr. Tamayo. Kathy Farnsworth MD Neurology Resident, PGY-2 /grupo/ KATHY FARNSWORTH MD RESIDENT Signed: 09/10/2024 12:35 Receipt Acknowledged By: 09/11/2024 14:11 /grupo/ Tim Tamayo MD STAFF PHYSICIAN NEUROLOGY 09/11/2024 ADDENDUM STATUS: COMPLETED Patient was discussed interviewed and examined with Dr. Farnsworth with who is conclusions and recommendations I agree. Mr. Wallace has been a long-term patient of Dr. Alicia'kim and currently takes carbidopa levodopa 25/250, 1 tablet 6 times a day or every 2 hours beginning at 6 AM in addition to 50/200 SA at bedtime. The primary reason for taking the medication is intermittent left-sided tremor and poor dexterity in the left hand. One of his main current symptoms is pain and discomfort related to left foot dystonia that is more likely to occur as the day goes on but may also occur earlier in the day particular toward the end of dose. I believe that this is related to the wearing off dystonia and I think could be addressed by changing the formulation of the carbidopa levodopa and stopping the entacapone. I will request approval for the Rytary and then prescribe a somewhat lower dose of Rytary than that which would be predicted by standard compression table. /grupo/ Tim Tamayo MD STAFF PHYSICIAN NEUROLOGY Signed: 09/11/2024 14:[address] [facility] Sep 10, 2024 09:31 AM NEUROLOGY NURSING OUTPATIENT NOTE: LOCAL TITLE: NEUROLOGY CLINIC NURSING NOTE STANDARD TITLE: NEUROLOGY NURSING OUTPATIENT NOTE DATE OF NOTE: SEP 10, 2024@09:31 ENTRY DATE: SEP 10, 2024@09:31:15 AUTHOR: FRANKLIN PEARL EXP COSIGNER: URGENCY: STATUS: COMPLETED Type of visit: Appointment Check In Reason for Visit: Here for 60 Min appt. Gets all medication from the [place]. Vital Signs: Blood Pressure: 116/81 (09/10/2024 09:29) Pulse: 66 (09/10/2024 09:29) Respiration: 18 (09/10/2024 09:29) Temperature: 97.9 F [36.6 C] (05/28/2024 13:57) Weight: 231.7 lb [105.10 kg] (09/10/2024 09:29) Height: 69.5 in [176.5 cm] (04/16/2021 15:35) BMI: 33.8 Pain: 0 (09/10/2024 09:29) Allergies: AMLODIPINE (Jun 17, 2020) Medications: Active Outpatient Medications and Supplies: Active Outpatient Medications (including Supplies): Active Outpatient Medications Status = 1) ATORVASTATIN CALCIUM 20MG TAB TAKE ONE TABLET BY MOUTH AT ACTIVE BEDTIME Indication: FOR CHOLESTEROL 2) CARBIDOPA 25/LEVODOPA 250MG TAB TAKE 1 TABLET BY MOUTH FIVE ACTIVE TIMES A DAY 3) CARBIDOPA 50/LEVODOPA 200MG SA TAB TAKE [...] A DAY ACTIVE Indication: FOR CONSTIPATION 7) ENTACAPONE 200MG TAB TAKE ONE TABLET BY MOUTH FIVE TIMES A ACTIVE DAY - TAKE WITH EACH DOSE OF CARBIDOPA 25/LEVODOPA 250MG TABLETS 8) LIDOCAINE 5% PATCH APPLY 1 PATCH TOPICALLY EVERY DAY ACTIVE NEEDED - PLACE ON RIGHT SHOULDER Indication: FOR UP TO 12 HOURS FOR PAIN 9) LISINOPRIL 20MG TAB TAKE ONE TABLET BY MOUTH EVERY DAY ACTIVE Indication: FOR BLOOD PRESSURE 10) MELATONIN 3MG CAP/TAB TAKE 3 TABLETS BY MOUTH AT BEDTIME ACTIVE Indication: FOR SLEEP 11) METOPROLOL SUCCINATE 50MG SA TAB TAKE ONE TABLET BY MOUTH ACTIVE EVERY DAY Indication: FOR BLOOD PRESSURE 12) POLYETHYLENE GLYCOL 3350 ORAL PWDR TAKE 17 GRAMS BY MOUTH ACTIVE THREE TIMES A WEEK Indication: FOR CONSTIPATION 13) TIZANIDINE HCL 2MG TAB TAKE ONE TABLET BY MOUTH EVERY ACTIVE EVENING AND TAKE ONE TABLET EVERY EVENING NEEDED Indication: FOR DYSTONIA 14) UREA 20% CREAM APPLY THIN LAYER TOPICALLY AT BEDTIME ON ACTIVE RIGHT FOOT Indication: FOR CALLUSES 15) VANICREAM TOP CREAM APPLY THIN LAYER TOPICALLY [...] changes documented on printed medication list. /grupo/ FRANKLIN PEARL LPN CLINICAL LICENSED PRACTICAL NURSE Signed: 09/10/2024 09:[address] [facility]
--- OUTSIDE RECORDS SUMMARY | 2024-10-22 08:12 | XMS_ITS | Encounter Summary ---
Author Name [facility] [place] Organization [facility] [place] Address [address] [place] [address] Care Team Providers Care Hotel Night Auditor Name Role Phone MELITON DOMINGUEZ Primary Care [...] PART A Dec 10, 2017 PART A [id number] [phone] LERUM,ELENI D PATIENT MEDICARE (WNR) MEDICARE (M) PART B Dec 10, 2017 PART B [id number] [phone] LERUM,ELENI D PATIENT MEDICARE (WNR) MEDICARE (M) PART A Dec 10, 2017 PART A [id number] [phone] LERUM,ELENI D PATIENT MEDICARE (WNR) MEDICARE (M) PART B Dec 10, 2017 PART B [id number] [phone] LERUM,ELENI D PATIENT MEDICARE (WNR) MEDICARE (M) PART A Dec 10, 2017 PART A [id number] LERUM,ELENI D PATIENT MEDICARE (WNR) MEDICARE (M) PART B Dec 10, 2017 PART B [id number] [phone] LERUM,ELENI D PATIENT MEDICARE (WNR) MEDICARE (M) PART A Dec 10, 2017 PART A [id number] [phone] LERUM,ELENI D PATIENT MEDICARE (WNR) MEDICARE (M) PART B Dec 10, 2017 PART B [id number] [phone] LERUM,ELENI D PATIENT Selected Encounter This section includes the information on record at [place] for the Encounter. Date/Time Encounter Type Encounter Description Reason Pro vider Source October 15, 2024 02:47 PM Outpatient Encounter PRIMARY CARE/MEDICINE IHE Encounter Template Text not used by [place] Plan of Treatment: Future Appointments (+ 6 months) and Future Tests (+/- 45 days) The Plan of Treatment section includes future care activities for the patient [facility] [place] [facility] This section includes future appointments and future orders which are active, pending or scheduled. Future Appointments This section includes appointments that were scheduled to occur 6 months from the date of the Encounter, up to a maximum of 20 appointments. The data comes from all [facility]. Appointment Date/Time Appointment Type Appointme nt Facility Name October 18, 2024 10:30 AM [facility] October 25, 2024 10:00 AM [facility] October 29, 2024 01:30 PM AMBULATORY - REHAB MEDICIN E [facility] Nov 13, 2024 09:00 AM AMBULATORY - REHAB MEDICIN [facility] Dec 26, 2024 01:30 PM AMBULATORY - NEUROLOGY [facility] Jan 27, 2025 09:30 AM AMBULATORY - REHAB MEDICIN [facility] Active, Pending, and Scheduled Orders This section includes a listing of several types of active, pending, and scheduled orders, including clinic medications orders, diagnostic test orders, procedure orders and consult orders; where the start date of the order is 45 days before the date of the Encounter or 45 days after the date of theEncounter. The data comes from all [facility]. Test Date/Time Test Type Test Details Facility Name Nov 15, 2024 12:00 AM Laboratory - Chemi stry Order CBC & DIFF BLOOD SP ONCE [facility] Nov 15, 2024 12:00 AM Laboratory - Chemi stry Order LIPID PANEL,NON-FASTING PLASMA SP [facility] Nov 15, 2024 12:00 AM Laboratory - Chemi stry Order BASIC METABOLIC PANEL+MG PLASMA SP [facility] Vital Signs: All taken on the encounter date This section contains inpatient and outpatient Vital Signs collected on the date of the Encounter. Date/Time Temperature Pulse Blood Pressure Respiratory Rate SP02 Pain Height Weight Body Mass Index Source October 15, 2024 02:50 PM 97 86 124/85 16 96 10 229.5 33 [facility] Social History: Smoking Status (Most current) and Tobacco Use (All prior to encounter date) This section includes the most current, and the historical, smoking and tobacco- related health factors from the [place] facility where the Encounter took place. Current Smoking Status This section includes the most current smoking, or tobacco-related health factor, from the [place] facility where the Encounter took place. Date/Time Current Smoking Status Comment Facil ity Mar 20, 2024 11:00 AM VA-TOBACCO FORMER USER [facility] Tobacco Use History This section includes a history of the smoking, or tobacco-related health factors, that were collected on or before the date of the Encounter. The data comes from the [place] facility where the Encounter took place. Date/Time Smoking Status/Tobacco Use Comment F acility Mar 20, 2024 11:00 AM VA-TOBACCO QUIT 15 YRS OR MORE [facility] Jan 18, 2023 10:00 AM VA-TOBACCO FORMER USER [facility] Jan 18, 2023 10:00 AM VA-TOBACCO QUIT 15 YRS OR MORE [facility] Jan 19, 2022 01:00 PM VA-TOBACCO FORMER USER [facility] Jan 19, 2022 01:00 PM VA-TOBACCO QUIT 15 YRS OR MORE [facility] Apr 16, 2021 03:30 PM VA-TOBACCO FORMER USER [facility] Apr 16, 2021 03:30 PM VA-TOBACCO QUIT 15 YRS OR MORE [facility] Mar 11, 2020 09:00 AM VA-TOBACCO FORMER USER [facility] Mar 11, 2020 09:00 AM VA-TOBACCO QUIT 15 YRS OR MORE [facility] Radiology Reports: +/- 30 days of [...] the Encounter. The data comes from all [place] treatment facilities. Date/Time Radiology Report Provider Source October 15, 2024 03:22 PM LUMBAR SPINE MIN 4 VIEWS: REED WALLACE [id number] -1950 M Exm Date: OCTOBER 15, 2024@15:22 Req Phys: MELITON DOMINGUEZ Pat Loc: [facility] PACT IVORY 4E (Req'g Loc) Img Loc: MAIN X-RAY Service: [place] [address] (Case [id number] COMPLETE) LUMBAR SPINE MIN 4 VIEWS (RAD Detailed) CPT:44480 Reason for Study: severe LBP Clinical History: h/o parkinson, c/o severe low back pain, left sided radiating across the back. No recall of injury. Please maudeal pt is waiting in clinic My pager number on record is: [phone]. I confirm that the pager number/cell phone number above is correct for reporting critical results. Trainees only: Enter your staff provider's info here: LAST CREATININE 0.7 (03/20/24) Report Status: Verified Date Reported: OCTOBER 15, 2024 Date Verified: OCTOBER 15, 2024 Technical Maintenance Technician E-Sig:/ES/WERNER SY MD Report: EXAMINATION: LUMBAR SPINE [...] Primary Interpreting Staff: WERNER SY MD, RADIOLOGIST (Technical Maintenance Technician) /RTS WERNER SY [facility] Oct 03, 2024 10:06 AM US AORTA (P): REED WALLACE [id number] -1950 M Exm Date: OCT 03, 2024@10:06 Req Phys: MELITON DOMINGUEZ Pat Loc: [facility] PT MARY JO Doretha (Req'g Loc) Img Loc: Ultrasound Imaging Service: [place] [address] (Case [id number] COMPLETE) US RETROPERITONEAL LIMITED (US Detailed) CPT:19994 Reason for Study: f/u illiac aneurysm Clinical History: [place] IS NOT under investigation for COVID-19 or is COVID-19 negative f/u illiac aneurysm for interval change Responsible provider name and phone number to notify for critical findings if other than user placing the order and pager listed below: User placing orders pager: [phone] LAST CREATININE 0.7 (08/22/23) Report Status: Verified Date Reported: OCT 03, 2024 Date Verified: OCT 03, 2024 Technical Maintenance Technician E-Sig:/ES/DORINDA LPATA Report: Abdominal Aorta Ultrasound Examination (follow-up) Comparison [...] PATIENT'S FINDINGS ENDS HERE. Recommendations from the [place] Vascular Surgery Department, updated 2023: Small infrarenal [...] AM Primary Interpreting Staff: DORINDA PLATA, RADIOLOGIST (Technical Maintenance Technician) Primary Interpreting Resident: ANIYAH HAIDER DO, FANCY STITCHER /DORINDA THOMAS [facility] Encounter Notes: All associated encounter notes This section contains the clinical notes associated to the Encounter. Date/Time Encounter Note(s) Provider Source October 15, 2024 02:47 PM ADVANCE DIRECTIVE: LOCAL TITLE: AD NOTIFICATION AND SCREENING STANDARD TITLE: ADVANCE DIRECTIVE DATE OF NOTE: OCTOBER 15, 2024@14:47 ENTRY DATE: OCTOBER 15, 2024@14:48 AUTHOR: VIDA BUNCH EXP COSIGNER: URGENCY: STATUS: COMPLETED ADVANCE DIRECTIVE NOTIFICATION: I was unable to give the patient written notification of the following rights because: Comment: Pt has one. ADVANCE DIRECTIVE SCREENING: Does patient have an Advance Directive? The patient has an Advance Directive. Does the patient wish to make any changes or revoke their current Advance Directive? Yes, the patient has an Advance Directive, but it is not in the medical record. was asked to obtain a copy for their medical record. /grupo/ VIDA BUNCH MSA Signed: 10/15/2024 14:48 VIDA BUNCH [facility]
--- OUTSIDE RECORDS SUMMARY | 2024-10-22 08:12 | XMS_ITS | Encounter Summary ---
Author Name [facility] [place] Address [address] [place] [address] Care Team Providers Care Finisher Accordion Name Role Phone MELITON DOMINGUEZ Primary Care [...] PART A Dec 10, 2017 PART A [id number] [phone] LERUM,ELENI D PATIENT MEDICARE (WNR) MEDICARE (M) PART A Dec 10, 2017 PART A [id number] [phone] LERUM,ELENI D PATIENT MEDICARE (WNR) MEDICARE (M) PART B Dec 10, 2017 PART B [id number] LERUM,ELENI D PATIENT MEDICARE (WNR) MEDICARE (M) PART B Dec 10, 2017 PART B [id number] [phone] LERUM,ELENI D PATIENT MEDICARE (WNR) MEDICARE (M) PART A Dec 10, 2017 PART A [id number] [phone] LERUM,ELENI D PATIENT MEDICARE (WNR) MEDICARE (M) PART B Dec 10, 2017 PART B [id number] [phone] LERUM,ELENI D PATIENT MEDICARE (WNR) MEDICARE (M) PART A Dec 10, 2017 PART A [id number] [phone] LERUM,ELENI D PATIENT MEDICARE (WNR) MEDICARE (M) PART B Dec 10, 2017 PART B [id number] [phone] LERUM,ELENI D PATIENT Selected Encounter This section includes the information on record at [place] for the Encounter. Date/Time Encounter Type Encounter Description Reason Pro vider Source October 15, 2024 03:00 PM Outpatient Encounter PRIMARY CARE/MEDICINE IHE Encounter Template Text not used by [place] Plan of Treatment: Future Appointments (+ 6 months) and Future Tests (+/- 45 days) The Plan of Treatment section includes future care activities for the patient [facility] [place] [facility]. This section includes future appointments and future orders which are active, pending or scheduled. Future Appointments This section includes appointments that were scheduled to occur 6 months from the date of the Encounter, up to a maximum of 20 appointments. The data comes from all [facility]. Appointment Date/Time Appointment Type Appointme nt Facility Name October 18, 2024 10:30 AM [facility] October 25, 2024 10:00 AM [facility] October 29, 2024 01:30 PM AMBULATORY - REHAB MEDICIN E [facility] Nov 13, 2024 09:00 AM AMBULATORY - REHAB MEDICIN [facility] Dec 26, 2024 01:30 PM AMBULATORY - NEUROLOGY [facility] Jan 27, 2025 09:30 AM AMBULATORY - REHAB MEDICIN [facility] Active, Pending, and Scheduled Orders This section includes a listing of several types of active, pending, and scheduled orders, including clinic medications orders, diagnostic test orders, procedure orders and consult orders; where the start date of the order is 45 days before the date of the Encounter or 45 days after the date of theEncounter. The data comes from all [facility]. Test Date/Time Test Type Test Details Facility Name Nov 15, 2024 12:00 AM Laboratory - Chemi stry Order CBC & DIFF BLOOD SP ONCE [facility] Nov 15, 2024 12:00 AM Laboratory - Chemi stry Order BASIC METABOLIC PANEL+MG PLASMA SP [facility] Nov 15, 2024 12:00 AM Laboratory - Chemi stry Order LIPID PANEL,NON-FASTING PLASMA SP [facility] Vital Signs: All taken on the encounter date This section contains inpatient and outpatient Vital Signs collected on the date of the Encounter. Date/Time Temperature Pulse Blood Pressure Respiratory Rate SP02 Pain Height Weight Body Mass Index Source October 15, 2024 02:50 PM 97 86 124/85 16 96 10 229.5 33 [facility] Social History: Smoking Status (Most current) and Tobacco Use (All prior to encounter date) This section includes the most current, and the historical, smoking and tobacco- related health factors from the [place] facility where the Encounter took place. Current Smoking Status This section includes the most current smoking, or tobacco-related health factor, from the [place] facility where the Encounter took place. Date/Time Current Smoking Status Comment Facil ity Mar 20, 2024 11:00 AM VA-TOBACCO FORMER USER [facility] Tobacco Use History This section includes a history of the smoking, or tobacco-related health factors, that were collected on or before the date of the Encounter. The data comes from the [place] facility where the Encounter took place. Date/Time Smoking Status/Tobacco Use Comment F acility Mar 20, 2024 11:00 AM VA-TOBACCO QUIT 15 YRS OR MORE [facility] Jan 18, 2023 10:00 AM VA-TOBACCO FORMER USER [facility] Jan 18, 2023 10:00 AM VA-TOBACCO QUIT 15 YRS OR MORE [facility] Jan 19, 2022 01:00 PM VA-TOBACCO FORMER USER [facility] Jan 19, 2022 01:00 PM VA-TOBACCO QUIT 15 YRS OR MORE [facility] Apr 16, 2021 03:30 PM VA-TOBACCO FORMER USER [facility] Apr 16, 2021 03:30 PM VA-TOBACCO QUIT 15 YRS OR MORE [facility] Mar 11, 2020 09:00 AM VA-TOBACCO FORMER USER [facility] Mar 11, 2020 09:00 AM VA-TOBACCO QUIT 15 YRS OR MORE [facility] Radiology Reports: +/- 30 days of the [...] the Encounter. The data comes from all [place] treatment facilities. Date/Time Radiology Report Provider Source October 15, 2024 03:22 PM LUMBAR SPINE MIN 4 VIEWS: REED WALLACE [id number] -1950 M Exm Date: OCTOBER 15, 2024@15:22 Req Phys: MELITON DOMINGUEZ Pat Loc: [facility] PACT IVORY 4E (Req'g Loc) Img Loc: MAIN X-RAY Service: [place] [address] (Case [id number] COMPLETE) LUMBAR SPINE MIN 4 VIEWS (RAD Detailed) CPT:53636 Reason for Study: severe LBP Clinical History: h/o parkinson, c/o severe low back pain, left sided radiating across the back. No recall of injury. Please maudeal pt is waiting in clinic My pager number on record is: [phone]. I confirm that the pager number/cell phone number above is correct for reporting critical results. Trainees only: Enter your staff provider's info here: LAST CREATININE 0.7 (03/20/24) Report Status: Verified Date Reported: OCTOBER 15, 2024 Date Verified: OCTOBER 15, 2024 Drying Machine Tender E-Sig:/ES/WERNER SY MD Report: EXAMINATION: LUMBAR SPINE [...] Primary Interpreting Staff: WERNER SY MD, RADIOLOGIST (Drying Machine Tender) /RTS WERNER SY [facility] Oct 03, 2024 10:06 AM US AORTA (P): REED WALLACE [id number] -1950 M Exm Date: OCT 03, 2024@10:06 Req Phys: MELITON DOMINGUEZ Pat Loc: [facility] PT MARY JO Doretha (Req'g Loc) Img Loc: Ultrasound Imaging Service: [place] [address] (Case [id number] COMPLETE) US RETROPERITONEAL LIMITED (US Detailed) CPT:30589 Reason for Study: f/u illiac aneurysm Clinical History: [place] IS NOT under investigation for COVID-19 or is COVID-19 negative f/u illiac aneurysm for interval change Responsible provider name and phone number to notify for critical findings if other than user placing the order and pager listed below: User placing orders pager: [phone] LAST CREATININE 0.7 (08/22/23) Report Status: Verified Date Reported: OCT 03, 2024 Date Verified: OCT 03, 2024 Drying Machine Tender E-Sig:/ES/VIRGILIO PLATA Report: Abdominal Aorta Ultrasound Examination (follow-up) [...] PATIENT'S FINDINGS ENDS HERE. Recommendations from the [place] V[place] Surgery Department, updated 2023: Small infrarenal [...] expected and does not change the recommendations IVirgilio, have reviewed the images and report. Report Sign Date/Time: 10/03/2024 11:30 AM Primary Interpreting Staff: VIRGILIO PLATA, RADIOLOGIST (Drying Machine Tender) Primary Interpreting Resident: ANIYAH HAIDER DO, SOLAR WATER HEATER INSTALLER /VIRGILIO THOMAS [facility] Encounter Notes: All associated encounter notes This section contains the clinical notes associated to the Encounter. Date/Time Encounter Note(s) Provider Source October 15, 2024 04:34 PM ADMINISTRATIVE NOT E: LOCAL TITLE: AFTER VISIT SUMMARY NOTE STANDARD TITLE: ADMINISTRATIVE NOTE DICT DATE: OCTOBER 15, 2024@15:00 ENTRY DATE: OCTOBER 15, 2024@16:34:15 DICTATED BY: MELITON DOMINGUEZ EXP COSIGNER: URGENCY: STATUS: COMPLETED The patient was provided with a copy of an after-visit summary at the conclusion of the visit. A copy of the after-visit summary provided to the patient is available in [facility]. SCANNED DOCUMENT SIGNATURE NOT REQUIRED Electronically Filed: 10/15/2024 by: MELITON DOMINGUEZ MD Staff Physician MELITON DOMINGUEZ [facility]
--- OUTSIDE RECORDS SUMMARY | 2024-10-22 08:12 | XMS_ITS | Encounter Summary ---
Author Name [facility] [place] [facility] [place] Address [address] [place] [address] Care Team Providers Care Hospitality Aide Name Role Phone MELITON DOMINGUEZ Primary [...] PART A Dec 10, 2017 PART A [id number] [phone] LERUM,ELENI D PATIENT MEDICARE (WNR) MEDICARE (M) PART A Dec 10, 2017 PART A [id number] [phone] LERUM,ELENI D PATIENT MEDICARE (WNR) MEDICARE (M) PART B Dec 10, 2017 PART B [id number] [phone] LERUM,ELENI D PATIENT MEDICARE (WNR) MEDICARE (M) PART B Dec 10, 2017 PART B [id number] [phone] LERUM,ELENI D PATIENT MEDICARE (WNR) MEDICARE (M) PART A Dec 10, 2017 PART A [id number] [phone] LERUM,ELENI D PATIENT MEDICARE (WNR) MEDICARE (M) PART B Dec 10, 2017 PART B [id number] [phone] LERUM,ELENI D PATIENT MEDICARE (WNR) MEDICARE (M) PART A Dec 10, 2017 PART A [id number] [phone] LERUM,ELENI D PATIENT MEDICARE (WNR) MEDICARE (M) PART B Dec 10, 2017 PART B [id number] [phone] LERUM,ELENI D PATIENT Selected Encounter This section includes the information on [place] at [place] for the Encounter. Date/Time Encounter Type Encounter Description Reason Provider Source October 22, 2024 07:23 AM Outpatient Encounter TELEPHONE TRIAGE DIANE CHUA Encounter Template Text not used by [place] Plan of Treatment: Future Appointments (+ 6 months) and Future Tests (+/- 45 days) The Plan of Treatment section includes future care activities for the patient from all [place] [facility] This section includes future appointments and future orders which are active, pending or scheduled. Future Appointments This section includes appointments that were scheduled to occur 6 months from the date of the Encounter, up to a maximum of 20 appointments. The data comes from all [facility]. Appointment Date/Time Appointment Type Appointme nt Facility Name October 25, 2024 10:00 AM AMBULATORY - MEDICINE [facility] October 29, 2024 01:30 PM AMBULATORY - REHAB MEDICIN [facility] Nov 13, 2024 09:00 AM AMBULATORY - REHAB MEDICIN [facility] Dec 26, 2024 01:30 PM AMBULATORY - NEUROLOGY [facility] Jan 27, 2025 09:30 AM AMBULATORY - REHAB MEDICIN [facility] Active, Pending, and Scheduled Orders This section includes a listing of several types of active, pending, and scheduled orders, including clinic medications orders, diagnostic test orders, procedure orders and consult orders; where the start date of the order is 45 days before the date of the Encounter or 45 days after the date of theEncounter. The data comes from all [facility]. Test Date/Time Test Type Test Details Facility Name Nov 15, 2024 12:00 AM Laboratory - Chemi stry Order CBC & DIFF BLOOD SP ONCE [facility] Nov 15, 2024 12:00 AM Laboratory - Chemi stry Order BASIC METABOLIC PANEL+MG PLASMA [facility] Nov 15, 2024 12:00 AM Laboratory - Chemi stry Order LIPID PANEL,NON-FASTING PLASMA [facility] Social History: Smoking Status (Most current) and Tobacco Use (All prior to encounter date) This section includes the most current, and the historical, smoking and tobacco- related health factors from the [facility] where the Encounter took place. Current Smoking Status This section includes the most current smoking, or tobacco-related health factor, from the [place] facility where the Encounter took place. Date/Time Current Smoking Status Comment Facil ity Mar 20, 2024 11:00 AM VA-TOBACCO FORMER USER [facility] Tobacco Use History This section includes a history of the smoking, or tobacco-related health factors, that were collected on or before the date of the Encounter. The data comes from the [place] facility where the Encounter took place. Date/Time Smoking Status/Tobacco Use Comment F acility Mar 20, 2024 11:00 AM VA-TOBACCO QUIT 15 YRS OR MORE [facility] Jan 18, 2023 10:00 AM VA-TOBACCO FORMER USER [facility] Jan 18, 2023 10:00 AM VA-TOBACCO QUIT 15 YRS OR MORE [facility] Jan 19, 2022 01:00 PM VA-TOBACCO FORMER USER [facility] Jan 19, 2022 01:00 PM VA-TOBACCO QUIT 15 YRS OR MORE [facility] Apr 16, 2021 03:30 PM VA-TOBACCO FORMER USER [facility] Apr 16, 2021 03:30 PM VA-TOBACCO QUIT 15 YRS OR MORE [facility] Mar 11, 2020 09:00 AM VA-TOBACCO FORMER USER [facility] Mar 11, 2020 09:00 AM VA-TOBACCO QUIT 15 YRS OR MORE [facility] Radiology Reports: +/- 30 days of [...] the Encounter. The data comes from all [facility] facilities. Date/Time Radiology Report Provider Source October 15, 2024 03:22 PM LUMBAR SPINE MIN 4 VIEWS: REED WALLACE [id number] -1950 M Exm Date: OCTOBER 15, 2024@15:22 Req Phys: MELITON DOMINGUEZ Pat Loc: [facility] PACT CEDRICK William (Req'g Loc) Img Loc: MAIN X-RAY Service: [place] [address] (Case [id number] COMPLETE) LUMBAR SPINE MIN 4 VIEWS (RAD Detailed) CPT:98341 Reason for Study: severe LBP Clinical History: h/o parkinson, c/o severe low back pain, left sided radiating across the back. No recall of injury. Please justin pt is waiting in clinic My pager number on record is: [phone]. I confirm that the pager number/cell phone number above is correct for reporting critical results. Trainees only: Enter your staff provider's info here: LAST CREATININE 0.7 (03/20/24) Report Status: Verified Date Reported: OCTOBER 15, 2024 Date Verified: OCTOBER 15, 2024 Lead Designer E-Sig:/ES/WERNER SY MD Report: EXAMINATION: LUMBAR SPINE [...] Primary Interpreting Staff: WERNER SY MD, RADIOLOGIST (Lead Designer) /RTS WERNER SY [facility] Oct 03, 2024 10:06 AM US AORTA (P): REED WALLACE [id number] -1950 M Exm Date: OCT 03, 2024@10:06 Req Phys: MELITON DOMINGUEZ Loc: [facility] PT MARY JO Doretha (Req'g Loc) Img Loc: Ultrasound Imaging Service: [place] [address] (Case [id number] COMPLETE) US RETROPERITONEAL LIMITED (US Detailed) CPT:75929 Reason for Study: f/u illiac aneurysm Clinical History: IS NOT under investigation for COVID-19 or is COVID-19 negative f/u illiac aneurysm for interval change Responsible provider name and phone number to notify for critical findings if other than user placing the order and pager listed below: User placing orders pager: [phone] LAST CREATININE 0.7 (08/22/23) Report Status: Verified Date Reported: OCT 03, 2024 Date Verified: OCT 03, 2024 Lead Designer E-Sig:/ES/DORINDA PLATA Report: Abdominal Aorta Ultrasound Examination [...] PATIENT'S FINDINGS ENDS HERE. Recommendations from the [place] Vascular Surgery Department, updated 2023: Small infrarenal [...] AM Primary Interpreting Staff: DORINDA PLATA, RADIOLOGIST (Lead Designer) Primary Interpreting Resident: ANIYAH HAIDER DO, MEAT PACKAGER /DORINDA THOMAS [facility] Encounter Notes: All associated encounter notes This section contains the clinical notes associated to the Encounter. Date/Time Encounter Note(s) Provider Source October 22, 2024 06:23 AM RN PROGRESS NOTE: LOCAL TITLE: CCC: CLINICAL TRIAGE STANDARD TITLE: RN PROGRESS NOTE DATE OF NOTE: OCTOBER 22, 2024@06:23:32 ENTRY DATE: OCTOBER 22, 2024@06:23:32 AUTHOR: DIANE CHUA COSIGNER: URGENCY: STATUS: COMPLETED Caller Verification Call Back Number: [phone] Caller/Recipient Relation to Patient: Self Caller Name: REED WALLACE Emergency Contact: REJI MONDAY Triage Summary Conducted triage/discussed symptoms Pain Score: 10 (Severe Pain) Utilized the Triage Tool: Yes Chief Complaint: Lower Back Pain System WHEN: Now Nurse's Recommendation / WHEN: Now System WHERE: Emergency department Nurse's Recommendation / WHERE: ED Other Patient Disposition Patient/Caregiver agrees to plan of care: Yes Patient WHERE: ED Other Patient WHEN: Now Nursing Plan and Disposition Referred patient to higher level of care Instructed to go to Emergency Room (ER) Other course(s) of action Generated msg to PACT/Provider Nurse Summary Nurse Summary: Received telephone call from boris who indicated that he was having severe lower back pain for approximately 3 weeks with a pain rate of 10 out of 10. Boris stated that he seen his PCP approximately 1 week ago and was provided medication for 7 days and at this time his pain has worsened. Boris stated that if he is immobilized his pain is about a 5 yet if he attempts to change positions from a chair to standing the pain radiates to a 10 immediately. Boris also stated that his pain is mainly located in the left lower portion of lower back yet pain will radiate to the right side. Boris also endorses breaking out into a sweat that has lasted greater than 10 minutes; boris stated that sweating occurred this morning and is a single event. Boris denies any chest pain, shortness of breath, or headaches at this time. Triage was completed with the at that time was recommended that he be seen in the ER setting, which he has agreed to do. will be seeking medical assistance from a non-VA facility which is in closer proximity to his home. Boris was provided with a telephone number of [phone] to report the non VA visit within 72 hours stated understanding and agreed. informed this senior writer ''the [facility] is greater than 1 hour away from me I would like to go to the hospital right here in [place] which is about 5 minutes away''. PC team will be alerted Clinical Contact Center Codes Clinic/Location: V23 [facility] PHONE CCC RN Decision Support System Output: Triage Complete Triage Date: 10/22/2024, 07:20 AM Triage Note: Decision Support Tool Used: D[facility] Phone Triage 22 Oct 2024 11:14:03 +0000 [facility] Demographics 73 y/o Male Results CC: Lower Back Pain Software suggested: Now Software suggested follow-up location: Emergency department Values and Measures Duration of CC: 3 Weeks Positive Responses HPI: back pain, severe HPI: diaphoresis, with back pain, duration longer than 10 minutes VS: BP not taken VS: pulse not taken Negative Responses Denies: HPI: arm, shoulder or jaw pain, with back pain Denies: HPI: back injury, recent Denies: HPI: back pain, duration longer than 1 month Denies: HPI: back pain, lower back Denies: HPI: back pain, midline, severe, tearing or ripping Denies: HPI: back pain, onset within past week Denies: HPI: back pain, severe, radiation to chest Denies: HPI: chest pain, with back pain Denies: HPI: dyspnea, with back pain Denies: HPI: lightheadedness with back pain, duration longer than 10 minutes Denies: PMH: heart disease IMPORTANT: This note was created by [place] [facility] Clinical Contact Center staff. Please do not alert the staff member by adding them as a signer for future communications. Alerts are not monitored by this user. /grupo/ DIANE CHUA RN Signed: 10/22/2024 06:23 Receipt Acknowledged By: * AWAITING SIGNATURE * MELITON DOMINGUEZ * AWAITING SIGNATURE * VERONIKA ERIC DUSHAWN A [facility]
--- OUTSIDE RECORDS SUMMARY | 2024-10-22 08:12 | XMS_ITS | Encounter Summary ---
Author Name [facility] [place] Organization [place] Address [address] [place] [address] Care Team Providers Care Bakery Pastry Internship Name Role Phone MELITON DOMINGUEZ Primary Care [...] PART A Dec 10, 2017 PART A [id number] [phone] LERUM,ELENI D PATIENT MEDICARE (WNR) MEDICARE (M) PART A Dec 10, 2017 PART A [id number] [phone] LERUM,ELENI D PATIENT MEDICARE (WNR) MEDICARE (M) PART B Dec 10, 2017 PART B [id number] [phone] LERUM,ELENI D PATIENT MEDICARE (WNR) MEDICARE (M) PART A Dec 10, 2017 PART A [id number] [phone] LERUM,ELENI D PATIENT MEDICARE (WNR) MEDICARE (M) PART B Dec 10, 2017 PART B [id number] [phone] LERUM,ELENI D PATIENT MEDICARE (WNR) MEDICARE (M) PART B Dec 10, 2017 PART B [id number] [phone] LERUM,ELENI D PATIENT MEDICARE (WNR) MEDICARE (M) PART A Dec 10, 2017 PART A [id number] [id number] [phone] LERUM,ELENI D PATIENT MEDICARE (WNR) MEDICARE (M) PART B Dec 10, 2017 PART B [id number] [id number] [phone] LERUM,ELENI D PATIENT Selected Encounter This section includes the information on record at [place] for the Encounter. Date/Time Encounter Type Encounter Description Reason Provider Source October 18, 2024 10:30 AM FUNDUS PHOTOGRAPHY W/I&R OPHTHALMOLOGY ICD-10-CM Z01.01 Encounter for exam of eyes and vision w abnormal findings GISELLE GARG Nancy Encounter Template Text not used by [facility] Assessments - Encounter Diagnoses This section includes the primary and secondary diagnoses documented for the Encounter. Date/Time Primary/Secondary Diagnosis Diagnosis Name Provider Source October 18, 2024 11:16 AM PRIMARY Encounter for exam of eyes and vision w abnormal findings Brandon GARG [facility] Plan of Treatment: Future Appointments (+ 6 months) and Future Tests (+/- 45 days) The Plan of Treatment section includes future care activities for the patient from all [place] [facility] This section includes future appointments and future orders which are active, pending or scheduled. Future Appointments This section includes appointments that were scheduled to occur 6 months from the date of the Encounter, up to a maximum of 20 appointments. The data comes from all [place] treatment facilities. Appointment Date/Time Appointment Type Appointme nt Facility Name October 25, 2024 10:00 AM [facility] October 29, 2024 01:30 PM AMBULATORY - REHAB MEDICIN E [facility] Nov 13, 2024 09:00 AM AMBULATORY - REHAB MEDICIN [facility] Dec 26, 2024 01:30 PM AMBULATORY - NEUROLOGY [facility] Jan 27, 2025 09:30 AM [facility] Active, Pending, and Scheduled Orders This section includes a listing of several types of active, pending, and scheduled orders, including clinic medications orders, diagnostic test orders, procedure orders and consult orders; where the start date of the order is 45 days before the date of the Encounter or 45 days after the date of theEncounter. The data comes from all [place] treatment facilities. Test Date/Time Test Type Test Details Facility Name Nov 15, 2024 12:00 AM Laboratory - Chemi stry Order CBC & DIFF BLOOD SP ONCE [facility] Nov 15, 2024 12:00 AM Laboratory - Chemi stry Order BASIC METABOLIC PANEL+MG PLASMA SP [facility] Nov 15, 2024 12:00 AM Laboratory - Chemi stry Order LIPID PANEL,NON-FASTING PLASMA SP [facility] Social History: Smoking Status (Most current) and Tobacco Use (All prior to encounter date) This section includes the most current, and the historical, smoking and tobacco- related health factors from the [place] facility where the Encounter took place. Current Smoking Status This section includes the most current smoking, or tobacco-related health factor, from the [place] facility where the Encounter took place. Date/Time Current Smoking Status Comment Facil ity Mar 20, 2024 11:00 AM VA-TOBACCO FORMER USER [facility] Tobacco Use History This section includes a history of the smoking, or tobacco-related health factors, that were collected on or before the date of the Encounter. The data comes from the [place] facility where the Encounter took place. Date/Time Smoking Status/Tobacco Use Comment F acility Mar 20, 2024 11:00 AM VA-TOBACCO QUIT 15 YRS OR MORE [facility] Jan 18, 2023 10:00 AM VA-TOBACCO FORMER USER [facility] Jan 18, 2023 10:00 AM VA-TOBACCO QUIT 15 YRS OR MORE [facility] Jan 19, 2022 01:00 PM VA-TOBACCO FORMER USER [facility] Jan 19, 2022 01:00 PM VA-TOBACCO QUIT 15 YRS OR MORE [facility] Apr 16, 2021 03:30 PM VA-TOBACCO FORMER USER [facility] Apr 16, 2021 03:30 PM VA-TOBACCO QUIT 15 YRS OR MORE [facility] Mar 11, 2020 09:00 AM VA-TOBACCO FORMER USER [facility] Mar 11, 2020 09:00 AM VA-TOBACCO QUIT 15 YRS OR MORE [facility] Radiology Reports: +/- 30 days of [...] the Encounter. The data comes from all [place] treatment facilities. Date/Time Radiology Report Provider Source October 15, 2024 03:22 PM LUMBAR SPINE MIN 4 VIEWS: REED WALLACE [id number] -1950 M Exm Date: OCTOBER 15, 2024@15:22 Req Phys: MELITON DOMINGUEZ H Pat Loc: [facility] IV[facility] 4E (Req'g Loc) Img Loc: MAIN X-RAY Service: [place] [address] (Case [id number] COMPLETE) LUMBAR SPINE MIN 4 VIEWS (RAD Detailed) CPT:87958 Reason for Study: severe LBP Clinical History: h/o parkinson, c/o severe low back pain, left sided radiating across the back. No recall of injury. Please justin pt is waiting in clinic My pager number on record is: [phone]. I confirm that the pager number/cell phone number above is correct for reporting critical results. Trainees only: Enter your staff provider's info here: LAST CREATININE 0.7 (03/20/24) Report Status: Verified Date Reported: OCTOBER 15, 2024 Date Verified: OCTOBER 15, 2024 Residential Aide E-Sig:/ES/WERNER SY MD Report: EXAMINATION: LUMBAR SPINE [...] Primary Interpreting Staff: WERNER SY MD, RADIOLOGIST (Residential Aide) /RTS WERNER SY [facility] Oct 03, 2024 10:06 AM US AORTA (P): REED WALLACE [id number] 1950 M Exm Date: OCT 03, 2024@10:06 Req Phys: MELITON DOMINGUEZ Pat Loc: [facility] PT MARY JO Doretha (Req'g Loc) Img Loc: Ultrasound Imaging Service: [place] [address] (Case [id number] COMPLETE) US RETROPERITONEAL LIMITED (US Detailed) CPT:75835 Reason for Study: f/u illiac aneurysm Clinical History: [place] IS NOT under investigation for COVID-19 or is COVID-19 negative f/u illiac aneurysm for interval change Responsible provider name and phone number to notify for critical findings if other than user placing the order and pager listed below: User placing orders pager: [phone] LAST CREATININE 0.7 (08/22/23) Report Status: Verified Date Reported: OCT 03, 2024 Date Verified: OCT 03, 2024 Residential Aide E-Sig:/ES/DORINDA MEDEROS Report: Abdominal Aorta Ultrasound Examination [...] PATIENT'S FINDINGS ENDS HERE. Recommendations from the [place] Vascular Surgery Department, updated 2023: Small infrarenal [...] AM Primary Interpreting Staff: DORINDA MEDEROS, RADIOLOGIST (Residential Aide) Primary Interpreting Resident: ANIYAH HAIDER DO, HOME ENERGY CONSULTANT /DORINDA THOMAS [facility] Encounter Notes: All associated encounter notes This section contains the clinical notes associated to the Encounter. Date/Time Encounter Note(s) Provider Source October 18, 2024 10:57 AM TELEHEALTH NOTE: LOCAL TITLE: EYE TECS RESOURCE SPECIALIST STANDARD TITLE: TELEHEALTH NOTE DATE OF NOTE: OCTOBER 18, 2024@10:57 ENTRY DATE: OCTOBER 18, 2024@10:57:20 AUTHOR: GISELLE GARGIGNER: URGENCY: STATUS: COMPLETED [facility] ([facility]) Catering Cook Note REED WALLACE [id number] Telehealth Consent and Patient Identification Verification: Verified patient identity with 2 separate identifiers prior to the beginning of the visit: Yes Patient was informed that their information and images will be uploaded securely to the [place] computer system and sent to be remotely [...] years ago Location of last eye exam: [facility] Type of eye exam: TECS TECS HISTORY & REVIEW OF SYSTEMS No pain, decreased vision, sudden change in flashes or floaters, or sudden onset double vision. DIABETES HISTORY: The patient does NOT have diabetes EYE DISEASE(S) HISTORY: Tecs Catering Cook 10/20/2022 [facility] Eye Disease History-Cataracts [facility] Eye [...] OD: +1.00+0.75x72 (Last MR in phoropter) OS: +0.25+1.12a145 (Last MR in phoropter) *didn't bring glasses with today WRx VA: OD: OS: - PH: Manifest Refraction (MRx): OD: +0.75+1.92o710 +2.50add OS: +0.25+1.86f385 +2.50add Final MRx VA: OD: OS: -2/+3 *NV OU: FINAL RX [facility]ecs Glauc Tech 10/23/2023 Tecs Refrac-Final Mrx Od +1.00+0.15z512 +2.50 Tecs Refrac-Final Mrx Os +0.25+1.34y878 +2.50 Additional MRx Information: Final MRx: OD: +0.75+1.72q270 +2.50add OS: +0.25+1.51t868 +2.50add Rx Comments: *OS MR Today: little change but pt saw better with MR--os vision fluctuating a lot Extraocular Movement, Confrontation Visual Miranda, Amsler Grid and Color Vision: Extraocular Movement: OU: Full Confrontation Visual Field: OU: Full PACHYMETRY: Pachymetry Past Results: SHF - Health Factor Select [facility] Catering Cook 10/23/2023 Tecs Eye Pachymetry Od 572 Tecs [...] >>* Patient communication preferences Best Contact Number: [phone] Voicemail set up: Yes Preferred Contact Method:* Patient prefers results letter to be mailed, phone call only if necessary for questions, concerns, or abnormal exam results Appendix (abbreviations): AC (Anterior Chamber); AREDS (Age Related Eye Disease Study); ARX (Auto Refraction); BID (Two Times Daily); C:D (Cup-to-Disc); CIC (Care In The Community); FULL TIME PARAMEDIC (Cyclophotocoagulation); CSME (Clinically Significant Macular Edema); DFE [...] MRx (Manifest Refraction); NeoPolyDex/Erythro (Neomycin Polymyxin B Dexamethasone/Erythromycin ); NFL (Nerve Fiber Layer); NPDR (Nonproliferative Diabetic Retinopathy); OCT (Optical Coherence Tomography); OD (Right Eye); OS (Left Eye); OU (Both Eyes); PDR (Proliferative Diabetic Retinopathy); PFATs (Preservative Free Artificial Tears); RK (Radial Keratotomy); RNFL (Retinal Nerve Fiber Layer); RTC (Return To Clinic); scVA (Visual Acuity Without Correction/Glasses); CHUY ([place] Interactive Threshold Algorithm); TID (Three Times Daily); UV (Ultraviolet); VA (Visual Acuity); WRx (Prescription glasses currently worn); WRx VA (Visual Acuity With Prescription Glasses); YAG (Yttrium Aluminum [place]) /grupo/ GISELLE GARG [facility] RUBY ON RAILS DEVELOPER Signed: 10/18/2024 11:16 GISELLE GARG [facility]
--- OUTSIDE RECORDS SUMMARY | 2024-10-22 08:12 | XMS_ITS | Encounter Summary ---
Author Name [facility] [place] Organization [facility] [place] Address [address] [place] [address] Care Team Providers Care Supervising Broker Name Role Phone MELITON DOMINGUEZ Primary Care [...] PART A Dec 10, 2017 PART A [id number] LERUM,ELENI D PATIENT MEDICARE (WNR) MEDICARE (M) PART B Dec 10, 2017 PART B [id number] LERUM,ELENI D PATIENT MEDICARE (WNR) MEDICARE (M) PART A Dec 10, 2017 PART A [id number] LERUM,ELENI D PATIENT MEDICARE (WNR) MEDICARE (M) PART B Dec 10, 2017 PART B [id number] LERUM,ELENI D PATIENT MEDICARE (WNR) MEDICARE (M) PART A Dec 10, 2017 PART A [id number] [phone] LERUM,ELENI D PATIENT MEDICARE (WNR) MEDICARE (M) PART B Dec 10, 2017 PART B [id number] [phone] LERUM,ELENI D PATIENT MEDICARE (WNR) MEDICARE (M) PART A Dec 10, 2017 PART A [id number] LERUM,ELENI D PATIENT MEDICARE (WNR) MEDICARE (M) PART B Dec 10, 2017 PART B [id number] LERUM,ELENI D PATIENT Selected Encounter This section includes the information on record at [place] for the Encounter. Date/Time Encounter Type Encounter Description Reason Provider Source October 21, 2024 12:40 PM Outpatient Encounter TELEPHONE TRIAGE YOSEPH TALAMANTES Encounter Template Text not used by [place] Plan of Treatment: Future Appointments (+ 6 months) and Future Tests (+/- 45 days) The Plan of Treatment section includes future care activities for the patient [facility] all [place] [facility] This section includes future appointments and future orders which are active, pending or scheduled. Future Appointments This section includes appointments that were scheduled to occur 6 months from the date of the Encounter, up to a maximum of 20 appointments. The data comes from all [facility]. Appointment Date/Time Appointment Type Appointme nt Facility Name October 25, 2024 10:00 AM AMBULATORY - MEDICINE [facility] October 29, 2024 01:30 PM AMBULATORY - REHAB MEDICIN [facility] Nov 13, 2024 09:00 AM AMBULATORY - REHAB MEDICIN [facility] Dec 26, 2024 01:30 PM AMBULATORY - NEUROLOGY [facility] Jan 27, 2025 09:30 AM AMBULATORY - REHAB MEDICIN [facility] Active, Pending, and Scheduled Orders This section includes a listing of several types of active, pending, and scheduled orders, including clinic medications orders, diagnostic test orders, procedure orders and consult orders; where thestart date of the order is 45 days before the date of the Encounter or 45 days after the date of the Encounter. The data comes from all [facility]. Test Date/Time Test Type Test Details Facility Name Nov 15, 2024 12:00 AM Laboratory - Chemi stry Order CBC & DIFF BLOOD SP ONCE [facility] Nov 15, 2024 12:00 AM Laboratory - Chemi stry Order BASIC METABOLIC PANEL+MG PLASMA [facility] Nov 15, 2024 12:00 AM Laboratory - Chemi stry Order LIPID PANEL,NON-FASTING PLASMA [facility] Social History: Smoking Status (Most current) and Tobacco Use (All prior to encounter date) This section includes the most current, and the historical, smoking and tobacco- related health factors from the [place] facility where the Encounter took place. Current Smoking Status This section includes the most current smoking, or tobacco-related health factor, from the [place] facility where the Encounter took place. Date/Time Current Smoking Status Comment Facil ity Mar 20, 2024 11:00 AM VA-TOBACCO QUIT 15 YRS OR MORE [facility] Tobacco Use History This section includes a history of the smoking, or tobacco-related health factors, that were collected on or before the date of the Encounter. The data comes from the [place] facility where the Encounter took place. Date/Time Smoking Status/Tobacco Use Comment F acility Mar 20, 2024 11:00 AM VA-TOBACCO QUIT 15 YRS OR MORE [facility] Jan 18, 2023 10:00 AM VA-TOBACCO FORMER USER [facility] Jan 18, 2023 10:00 AM VA-TOBACCO QUIT 15 YRS OR MORE [facility] Jan 19, 2022 01:00 PM VA-TOBACCO FORMER USER [facility] Jan 19, 2022 01:00 PM VA-TOBACCO QUIT 15 YRS OR MORE [facility] Apr 16, 2021 03:30 PM VA-TOBACCO FORMER USER [facility] Apr 16, 2021 03:30 PM VA-TOBACCO QUIT 15 YRS OR MORE [facility] Mar 11, 2020 09:00 AM VA-TOBACCO FORMER USER [facility] Mar 11, 2020 09:00 AM VA-TOBACCO QUIT 15 YRS OR MORE [facility] Radiology Reports: +/- 30 days of the [...] the Encounter. The data comes from all [facility] facilities. Date/Time Radiology Report Provider Source October 15, 2024 03:22 PM LUMBAR SPINE MIN 4 VIEWS: REED WALLACE [id number] -1950 M Exm Date: OCTOBER 15, 2024@15:22 Req Phys: MELITON DOMINGUEZ Pat Loc: [facility] 4E (Req'g Loc) Img Loc: MAIN X-RAY Service: [place] [address] (Case [id number] COMPLETE) LUMBAR SPINE MIN 4 VIEWS (RAD Detailed) CPT:33299 Reason for Study: severe LBP Clinical History: h/o parkinson, c/o severe low back pain, left sided radiating across the back. No recall of injury. Please justin pt is waiting in clinic My pager number on record is: [phone]. I confirm that the pager number/cell phone number above is correct for reporting critical results. Trainees only: Enter your staff provider's info here: LAST CREATININE 0.7 (03/20/24) Report Status: Verified Date Reported: OCTOBER 15, 2024 Date Verified: OCTOBER 15, 2024 Carton Gluing Machine Operator E-Sig:/ES/WERNER SY MD Report: EXAMINATION: LUMBAR [...] Primary Interpreting Staff: WERNER SY MD, RADIOLOGIST (Carton Gluing Machine Operator) /RTS WERNER SY [facility] Oct 03, 2024 10:06 AM US AORTA (P): REED WALLACE [id number] -1950 M Exm Date: OCT 03, 2024@10:06 Req Phys: MELITON DOMINGUEZ Pat Loc: [facility] PT MARY JO D (Req'g Loc) Img Loc: Ultrasound Imaging Service: [place] [address] (Case [id number] COMPLETE) US RETROPERITONEAL LIMITED (US Detailed) CPT:11247 Reason for Study: f/u illiac aneurysm Clinical History: IS NOT under investigation for COVID-19 or is COVID-19 negative f/u illiac aneurysm for interval change Responsible provider name and phone number to notify for critical findings if other than user placing the order and pager listed below: User placing orders pager: [phone] LAST CREATININE 0.7 (08/22/23) Report Status: Verified Date Reported: OCT 03, 2024 Date Verified: OCT 03, 2024 Carton Gluing Machine Operator E-Sig:/ES/DORINDA PLATA Report: Abdominal Aorta Ultrasound Examination [...] PATIENT'S FINDINGS ENDS HERE. Recommendations from the [place] Vascular Surgery Department, updated 2023: Small infrarenal [...] AM Primary Interpreting Staff: DORINDA PLATA, RADIOLOGIST (Carton Gluing Machine Operator) Primary Interpreting Resident: ANIYAH HAIDER DO, CHIEF LEARNING OFFICER /DORINDA THOMAS [facility] Encounter Notes: All associated encounter notes This section contains the clinical notes associated to the Encounter. Date/Time Encounter Note(s) Provider Source October 21, 2024 12:40 PM RN PROGRESS NOTE: LOCAL TITLE: CCC: CLINICAL TRIAGE STANDARD TITLE: RN PROGRESS NOTE DATE OF NOTE: OCTOBER 21, 2024@12:40:17 ENTRY DATE: OCTOBER 21, 2024@12:40:17 AUTHOR: YOSEPH TALAMANTES COSIGNER: URGENCY: STATUS: COMPLETED CCC: CLINICAL TRIAGE Has ADDENDA Caller Verification Caller/Recipient Relation to Patient: Self Caller Name: REED WALLACE Emergency Contact: REJI MONDAY Triage Summary Conducted triage/discussed symptoms Pain Score: 10 (Severe Pain) Utilized the Triage Tool: Yes Chief Complaint: Back Pain System WHEN: Now Nurse's Recommendation / WHEN: Within 3 Days System WHERE: Emergency department Nurse's Recommendation / WHERE: [facility] Patient Disposition Patient/Caregiver agrees to plan of care: Yes Patient WHERE: Clinic/[facility] Patient WHEN: Within 3 days Nursing Plan and Disposition Referred Patient for In-Person Appt Other Other Description: Unable to schedule Nurse Summary Nurse Summary: PATIENT CONCERN/DURATION/ONSET: Atkins c/o ongoing acute left sided low back pain that first began 2 weeks ago after twisting and experiencing immediate pain. Today pain is rated up to 10/10 and is most felt when going from sitting to standing. Otherwise, pain is described as 'numb' and lingering. If he is laying flat on his back, pain is absent. Does feel that walking is a bit more challenging with some weakness in the left leg. Denies injury, dizziness, syncope, radiating pain down leg, numbness, tingling, inability to stand or walk, or diaphoresis. WHAT HAS PATIENT TRIED TO TREAT THE SYMPTOMS: Tylenol, Tizanidine, Medrol dose pack, diclofenac gel no significant relief. Ryder that on the 3rd day of the Medrol dose pack symptoms were improving, but then twisted wrong and pain increased again. HISTORY/PREVIOUS TREATMENT: Seen in clinic on 10/15 for the same WHAT IS PATIENT GOAL FOR THE CALL: Pain management. Was Virtual Care Visit considered (TELE or VVC)? yes, not available TOOL MACHINE SETUP OPERATOR DISPOSITION: Triage nurse recommendation is >24 hours for further evaluation due to acute but not critical symptoms. No appointments available within recommended time frame. Prior to transfer to triage boris was scheduled appointment with [facility] for this Monday, 10/25. He is requesting a message to provider in the interim. Message Retail Loss Prevention Specialist sent to [facility] for f/u and management per SOP. Advised patient to call back immediately/seek emergency care if any of the signs or symptoms noted above worsen. Atkins verbalizes understanding and agreement with plan. Best contact for Boris is [phone] (Verified). This note was created by a 3 [facility] RN. Please do not alert this nurse by adding as a signer for future communications. Alerts are not monitored by this user, please reach out to [facility] Leadership instead if indicated. Clinical Contact Center Codes Clinic/Location: 3 [facility] PHONE [facility] RN Decision Support System Output: Triage Complete Triage Date: 10/21/2024, 12:33 PM Triage Note: Decision Support Tool Used: GACC Phone Triage 21 Oct 2024 17:19:13 +0000 [facility] Demographics 73 y/o Male Results CC: Back Pain Software suggested: Now Software suggested follow-up location: Emergency department Values and Measures Duration of CC: 2 Weeks Positive Responses HPI: back pain, lower back HPI: back pain, severe PMH: abdominal aortic aneurysm VS: BP not taken VS: pulse not taken Negative Responses Denies: HPI: back injury, recent Denies: HPI: back pain, duration longer than 1 month Denies: HPI: lightheadedness, orthostatic Denies: HPI: syncope Denies: HPI: weakness, unable to stand Denies: HPI: weakness, with diaphoresis IMPORTANT: This note was created by [facility] Clinical Contact Center staff. Please do not alert the staff member by adding them as a signer for future communications. Alerts are not monitored by this user. /grupo/ YOSEPH TALAMANTES RN VISN 23 [facility] Signed: 10/21/2024 12:40 10/21/2024 ADDENDUM STATUS: COMPLETED Will alert provider for review and direction as requested. /grupo/ DANIELA SHAFER RN REGISTERED NURSE Signed: 10/21/2024 14:33 Receipt Acknowledged By: * AWAITING SIGNATURE * MELITON DOMINGUEZ SHAW[place] E [facility]
--- OUTSIDE RECORDS SUMMARY | 2024-10-22 08:13 | XMS_ITS | Continuity of Care Document ---
Author Name [facility] Organization [facility] Care Team Providers Care Internet Manager Name Role Phone [facility] Unavailable Unavailable Problems Combined list of problems from Department of Defense and Veterans Affairs facilities. It does not include entries that were removed or entered in error. Problem Status Onset Date Problem Type Date of Resolution Comments Source Hyperlipidemia, unspecified Active 017 Condition DoD Encounter for general adult medical examination without abnormal findings Active 017 Condition DoD Essential (primary) hypertension Active 017 Condition [facility] Obstructive sleep apnea (adult) (pediatric) Active 016 Condition DoD Localized edema Active 016 Condition [facility] Lesion of ulnar nerve, left upper limb Active 016 Condition DoD Male erectile disorder Active 016 Condition [facility] Parkinson's disease Active 016 Condition [facility] Autonomic neuropathy in diseases classified elsewhere Active 015 Condition DoD Encounter for other orthopedic aftercare Active 899 Condition [facility] Actinic keratosis Active Condition [facility] 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 1 year(2021) U/S surveillance recommended. [facility] Ankle oedema Active Condition [facility] Benign essential hypertension Active Condition [facility] Cholelithiasis Active Condition [facility] [place] Active Condition [facility] Dystonia Active Condition [facility] Dystrophic nail [facility] Erectile dysfunction Active Condition [facility] Herpes genitalis Active Condition [facility] Hyperlipidaemia Active [facility] Intertriginous dermatitis Active Condition [facility] Pain of right shoulder joint [facility] Parkinson's disease Active Condition [facility] Polyneuropathy [facility] Steatosis of liver Active Condition [facility] Thrombocytopenia Active Condition [facility] Encounter for screening for malignant neoplasm of skin Active Condition DoD Low back pain Active Condition DoD Other secondary parkinsonism Active Condition DoD Dry eye syndrome of bilateral lacrimal glands Active Condition DoD Polyneuropathy, unspecified Active Condition DoD POLYNEUROPATHY Active Condition DoD CUBITAL TUNNEL SYNDROME LEFT Active Condition DoD DEVIATED NASAL SEPTUM (ACQUIRED) Active Condition DoD ORGANIC SLEEP APNEA OBSTRUCTIVE ADULT Active Condition DoD facial numbness Active Condition DoD EYESTRAIN Inactive Condition DoD MERALGIA PARESTHETICA Active Condition DoD difficulty with balance Inactive Condition DoD BRAIN INJURY TRAUMATIC Active Condition DoD BLEPHARITIS Active Condition DoD tingling (paresthesia) Inactive Condition DoD dizziness Inactive Condition DoD THROMBOCYTOPENIA Active Condition DoD ABNORMAL LIVER FUNCTION TEST Active Condition DoD Laboratory Studies Inactive Condition Do D visit for: routine adult H&P Inactive Condition DoD visit for: screening exam malignant neoplasm prostate Inactive Condition DoD Blood Chemistry Screening Tests As Part Of General Physical Exam Inactive Condition DoD visit for: issue repeat prescription for medication Inactive Condition DoD Administrative Evaluation Services Inactive Condition DoD visit for: issue repeat prescription Inactive Condition DoD LARGE INTESTINE NEOPLASM, BENIGN - POLYPS Inactive Condition DoD LARGE INTESTINE NEOPLASM, BENIGN - TUBULAR ADENOMA Inactive Condition DoD Patient Counseling: Inactive Condition DoD OSTEOARTHRITIS SHOULDER Active Condition DoD joint pain, localized in the shoulder Inactive Condition DoD OSTEOARTHRITIS Active Condition DoD VERTIGO Inactive Condition DoD TINNITUS SUBJECTIVE Inactive Condition DoD ESSENTIAL HYPERTENSION Active Condition DoD HEARING LOSS Active Condition DoD HYPERTENSION (SYSTEMIC) Inactive Condition Discussed risks/benefits of starting medication for BP reduction. Pt declines antihypertensive meds today---desires continued BP monitoring. Pt will continue low sodium diet and regular aerobic exercise. DoD chest pain located right of center (precordial) Inactive Condition Etiology unknow n. Check radiograph and consider chest CT if persists. DoD sore throat Inactive Condition Per Dr Kina myles, most likely viral, will due rapid strep per pt request. Symptom relief encouraged with Tylenol/motrin OTC. Pt verbalized understanding of callback criteria. Home care for sore throat given to patient with verbalized understanding ([facility] triage protocols, sore throat). pt encouraged to drink plenty of water, warm saltwater gargles, wash hands. Note pt was initially here for first day of provider requested 5 day BP check. Well apt set for pt with PCM (Pablo) for group home physical, 13 September 2006 @ 1000.work number: [phone] DoD HYPERTENSION SYSTOLIC Inactive Condition Per Capt Alyson blackwood, pt verbalized understanding to get his BP checked at home and call Apt line with results and evaluation of results. pt denies any current complications at this time. Pt is aware to callback with any questions or concerns. DoD SENSORINEURAL HEARING LOSS Inactive Condition bilat with problems with short-term memory, concentration; continued, intermittent balance complaints - normal exams today. DoD TINNITUS BOTH EARS Active Condition DoD LARGE INTESTINE NEOPLASM, BENIGN - POLYPS Active Condition Surveillance interval for COL Pearce is 5 years given the number, size, and histology of the resected polyps. Since only one (1) adenomatous polyp was removed, his next colonoscopy is due in 2009 - earlier if clinically indicated. COL Pearce voiced understanding with the recommendations. DoD ASTIGMATISM - REGULAR Active Condition DoD NORMAL ROUTINE OPHTHALMOLOGICAL EXAM Inactive Condition updated spec RX. DoD MALE ERECTILE DISORDER Active Condition Continue meds a s directed. NITRATES CONTRAINDICATED. Call/rtc w/ any concerns. DoD visit for: services physical group home Inactive Condition Well adult male cleared for group home. Refer to audiology for audigram. Check routine labs and f/u w/ any concerns. Repeat c-scope due Jul 2006. [id number] signed and copy in record. DoD LUMBAGO Active Condition DoD Aftercare Orthopedic Inactive Condition DoD Aftercare Following Surgery Of Musculoskeletal System Inactive Condition DoD NORMAL ROUTINE HISTORY AND PHYSICAL ADULT (18-65) Inactive Condition DoD SHOULDER JOINT DISORDER Active Condition DoD difficulty breathing (dyspnea) Inactive Condition normal exam, normal spirometry, (in fact, supernormal), prior negative methacholine challenge, normal CXR. Hx not suggestive of asthma, neuromuscular dz, intrinsic lung dz.Discussed possibility that moderate weight gain (dyana in abd girth) can give coles DoD ASTIGMATISM Active Condition DoD PRESBYOPIA Active Condition DoD visit for: routine eye exam Inactive Condition DoD REFRACTIVE ERROR - HYPERMETROPIA Active Condition DoD Removal Of Sutures Inactive Condition S utures all removed easily. f/u prn. Wound clean dry with mild adherent scab DoD OSTEOARTHRITIS LOCALIZED SHOULDER Inactive Condition R A-C JT DoD Pain / Temp Decrease Leg / Foot Inactive Condition DoD Other Physical Therapy Inactive Condition DoD TENDONITIS ROTATOR CUFF Active Condition DoD SHOULDER STRAIN Inactive Condition Heat , rest, NSAIDS. DoD Diagnosis: ICD-10-CM Z01.01 Encounter for exam of eyes and vision w abnormal findings Active Diagnosis [facility] Diagnosis: ICD-10-CM M54.50 Low back pain, unspecified Active Diagnosis [facility] Diagnosis: ICD-10-CM R26.89 Other abnormalities of gait and mobility Active Diagnosis [facility] Diagnosis: ICD-10-CM G20.B2 Parkinson's disease with dyskinesia, with fluctuations Active Diagnosis [facility] Diagnosis: ICD-10-CM R47.1 Dysarthria and anarthria Active Diagnosis [facility] Diagnosis: ICD-10-CM L85.3 Xerosis cutis Active Diagnosis [facility] Diagnosis: ICD-10-CM R49.0 Dysphonia Active Diagnosis [facility] Diagnosis: ICD-10-CM M25.511 Pain in right shoulder Active Diagnosis [facility] Diagnosis: ICD-10-CM Z01.00 Encounter for exam of eyes and vision w/o abnormal findings Active Diagnosis [facility] Diagnosis: ICD-10-CM M19.011 Primary osteoarthritis, right shoulder Active Diagnosis [facility] Diagnosis: ICD-10-CM I72.3 Aneurysm of iliac artery Active Diagnosis [facility] Diagnosis: ICD-10-CM G24.8 Other dystonia Active Diagnosis [facility] Diagnosis: ICD-10-CM U07.1 COVID-19 Active Diagnosis [facility] Medications Combined list of outpatient medications from Department of Defense and [facility] Affairs facilities.Medications provided include 1) outpatient medications from the last 15 months, and 2) patient-reported medications. Medication Details Route Status Patient Instructions Prescription Expires Prescription Number Last Dispense Date Ordering Provider Order Date Order Qty Source ATORVASTATI N CA 20MG TAB TAKE ONE TABLET BY MOUTH AT BEDTIME FOR CHOLESTE ROL ORAL ACTIVE 04/30/2025 [id number] 4 ANDREA DOMINGUEZ T H 2023 90 [facility] ATORVASTATI N CA 20MG TAB TAKE ONE TABLET BY MOUTH AT BEDTIME FOR CHOLESTE ROL ORAL DISCONT INUED 01/19/2024 [id number] 4 ANDREA DOMINGUEZ H 2022 90 [facility] CARBIDOPA 25MG/LEVODO PA 250MG TAB TAKE 1 TABLET BY MOUTH FIVE TIMES A DAY ORAL DISCONT INUED 02/20/2025 [id number] 4 JENNIFER WOO M 2023 450 [facility] CARBIDOPA 25MG/LEVODO PA 250MG TAB TAKE 1 TABLET BY MOUTH FIVE TIMES A DAY ORAL DISCONT INUED 07/04/2024 [id number] 4 JENNIFER WOO TT M 2023 450 [facility] CARBIDOPA 48.75MG/LEV ODOPA 195MG CAP,SA TAKE 3 CAPSULES BY MOUTH THREE TIMES A DAY FOR PARKINSO N DISEASE SUGGEST TAKING AT 6 AM, 12 NOON AND 6 PM. STOP ENTACAPO NE ORAL ACTIVE 09/12/2025 [id number] 5 KRISTINСЕРГЕЙ S 2024 810 [facility] CARBIDOPA 50MG/LEVODO PA 200MG TAB,SA TAKE 1 TABLET BY MOUTH AT BEDTIME FOR PARKINSO N DISEASE ORAL ACTIVE 09/12/2025 [id number] 5 JENNIFER WOO TT M 2024 30 [facility] CARBIDOPA 50MG/LEVODO PA 200MG TAB,SA TAKE 1 TABLET BY MOUTH AT BEDTIME FOR PARKINSO N DISEASE ORAL DISCONT INUED 02/20/2025 [id number] 4 JENNIFER WOO TT M 2023 30 [facility] CARBIDOPA 50MG/LEVODO PA 200MG TAB,SA TAKE 1 TABLET BY MOUTH AT BEDTIME FOR PARKINSO N DISEASE ORAL DISCONT INUED 07/04/2024 [id number] 4 JENNIFER WOO TT M 2023 30 [facility] CHLORTHALID ONE 25MG TAB TAKE ONE-HALF TABLET BY MOUTH EVERY MORNING FOR BLOOD PRESSURE ORAL ACTIVE 01/19/2025 [id number] 5 ANDREA DOMINGUEZ T H 2023 45 [facility] CHLORTHALID ONE 25MG TAB TAKE ONE-HALF TABLET BY MOUTH EVERY MORNING FOR BLOOD PRESSURE ORAL DISCONT INUED 11/02/2023 [id number] ANDREA DOMINGUEZ H 2022 45 [facility] CLINDAMYCIN PO4 1% LOTION APPLY TO AFFECTED AREA TOPICALL Y TWICE A DAY FOR RASH UNTIL RESOLVED TOPICA L ACTIVE 05/09/2025 [id number] STELLA PIERRE V [address] [facility] DICLOFENAC NA 1% GEL,TOP APPLY 4 GRAMS TOPICALL Y FOUR TIMES A DAY TO AFFECTED AREA FOR PAIN TOPICA L ACTIVE 10/16/2025 [id number] 5 ANDREA DOMINGUEZ H 2024 100 [facility] DOCUSATE NA 100MG CAP TAKE TWO CAPSULES BY MOUTH TWICE A DAY FOR CONSTIPA TION ORAL ACTIVE 09/24/2025 [id number] SHREYAS PARRY GUERO F 2024 400 [facility] DOCUSATE NA 100MG CAP TAKE TWO CAPSULES BY MOUTH TWICE A DAY FOR CONSTIPA TION ORAL DISCONT INUED 04/24/2025 [id number] 4 SHREYAS PARRY F 2023 400 [facility] DOCUSATE NA 100MG CAP TAKE TWO CAPSULES BY MOUTH TWICE A DAY FOR CONSTIPA TION ORAL DISCONT INUED 02/26/2024 [id number] 4 SHREYAS PARRY F 2023 360 [facility] ENTACAPONE 200MG TAB TAKE ONE TABLET BY MOUTH FIVE TIMES A DAY - TAKE WITH EACH DOSE OF CARBIDOP A 25/LEVOD OPA 250MG TABLETS ORAL DISCONT INUED 02/20/2025 [id number] 4 JENNIFER WOO TT M 2023 450 [facility] ENTACAPONE 200MG TAB TAKE ONE TABLET BY MOUTH FIVE TIMES A DAY - TAKE WITH EACH DOSE OF CARBIDOP A 25/LEVOD OPA 250MG TABLETS ORAL DISCONT INUED 11/28/2024 [id number] 4 JENNIFER WOO M 2023 450 [facility] ENTACAPONE 200MG TAB TAKE ONE TABLET BY MOUTH FIVE TIMES A DAY - TAKE WITH EACH DOSE OF CARBIDOP A 25/LEVOD OPA 250MG TABLETS ORAL DISCONT INUED 11/02/2023 [id number] 4 JENNIFER WOO M 2022 450 [facility] LIDOCAINE 5% PATCH APPLY 1 PATCH TOPICALL Y EVERY DAY NEEDED FOR UP TO 12 HOURS FOR PAIN - PLACE ON RIGHT SHOULDER TOPICA L 10/09/2024 [id number] 4 LUCAS DAS 2023 30 [facility] LISINOPRIL 20MG TAB TAKE ONE TABLET BY MOUTH EVERY DAY FOR BLOOD PRESSURE ORAL ACTIVE 02/02/2025 [id number] 5 ANDREA DOMINGUEZ H 2023 90 [facility] LISINOPRIL 20MG TAB TAKE ONE TABLET BY MOUTH EVERY DAY FOR BLOOD PRESSURE ORAL DISCONT INUED 11/02/2023 [id number] ANDREA DOMINGUEZ H 2022 90 [facility] MELATONIN 3MG CAP/TAB TAKE 3 TABLETS BY MOUTH AT BEDTIME FOR SLEEP ORAL ACTIVE 05/29/2025 [id number] 4 JENNIFER WOO TT 2023 180 [facility] METHYLPREDN ISOLONE 4MG TAB DOSEPAK,21 TAKE ACCORDIN G TO DIRECTIO NS IN PACKAGE BY MOUTH DIRECTED FOR PAIN ORAL ACTIVE 11/14/2024 [id number] 5 ANDREA DOMINGUEZ H 2024 1 [facility] METOPROLOL SUCCINATE 50MG TAB,SA TAKE ONE TABLET BY MOUTH EVERY DAY FOR BLOOD PRESSURE ORAL ACTIVE 04/08/2025 [id number] 5 ANDREA DOMINGUEZ H 2023 90 [facility] METOPROLOL SUCCINATE 50MG TAB,SA TAKE ONE TABLET BY MOUTH EVERY DAY FOR BLOOD PRESSURE ORAL DISCONT INUED 01/19/2024 [id number] 4 ANDREA DOMINGUEZ H 2022 90 [facility] POLYETHYLEN E GLYCOL 3350 PWDR,ORAL TAKE 17 GRAMS BY MOUTH THREE TIMES A WEEK FOR CONSTIPA TION ORAL ACTIVE 09/24/2025 [id number] 5 SHREYAS PARRY F 2024 510 [facility] POLYETHYLEN E GLYCOL 3350 PWDR,ORAL TAKE 17 GRAMS BY MOUTH THREE TIMES A WEEK FOR CONSTIPA TION ORAL DISCONT INUED 11/28/2024 [id number] 4 SHREYAS PARRY F 2023 510 [facility] SILDENAFIL CITRATE 100MG TAB TAKE ONE TABLET BY MOUTH ONCE NEEDED FOR ERECTION S - TAKE 1 HOUR BEFORE ANTICIPA MUKESH SEXUAL ACTIVITY ORAL 05/30/2024 [id number] 4 ANDREA DOMINGUEZ Severo H 2022 18 [facility] TIZANIDINE HCL 2MG TAB TAKE ONE TABLET BY MOUTH EVERY EVENING AND TAKE ONE TABLET EVERY EVENING NEEDED FOR DYSTONIA ORAL ACTIVE 11/28/2024 [id number] 4 JENNIFER WOO TT M 2023 180 [facility] UREA 20% CREAM,TOP APPLY THIN LAYER TOPICALL Y AT BEDTIME FOR CALLUSES ON RIGHT FOOT TOPICA L ACTIVE 05/09/2025 [id number] STELLA PIERRE L V 2023 90 [facility] VANICREAM APPLY THIN LAYER TOPICALL Y EVERY DAY FOR DRY SKIN IDEALLY WITHIN 3 MINUTES AFTER BATH OR SHOWER. TOPICA L ACTIVE 05/09/2025 [id number] STELLA PIERRE L V 2023 454 [facility] Allergies, Adverse Reactions, Alerts Combined list of allergies from Department of Defense and Veterans Affairs facilities. It does not include entries that were removed or entered in error. Substance Category Reaction Severity Reaction type Status Date Reported Comments Source AMLODIPINE Propensity to adverse reactions to drug (finding) Swollen ankle region active 1 [facility] No Known Allergies Drug allergy (disorder) active 5 [facility] Immunizations Combined list of available immunizations from the Department of Defense and Veterans Affairs facilities. Immunization Series Date Given Administered By Site Reaction Lot Number CVX Code Drug Cruller Maker Status Comments Source INFLUENZA, HIGH-DOSE, TRIVALENT, PF 2023 ENRIQUE HARDWICK LEFT DELTO ID [id number] A 135 complet ed [facility] COVID-19 (PFIZER), MRNA, LNP-S, PF, ZANE-SUCROSE, 30 MCG/0.3 ML (AGES 12+ YEARS) 1 2023 ENRIQUE HARDWICK LEFT DELTO ID [id number] 309 complet ed [facility] INFLUENZA, HIGH-DOSE, QUADRIVALENT 2023 ENRIQUE HARDWICK LEFT DELTO ID [id number] A 197 complet ed [facility] AT OR, [facility] PNEUMOCOCCAL CONJUGATE PCV20, POLYSACCHARID E [id number] CONJUGATE, ADJUVANT, PF 2022 ENRIQUE HARDWICK LEFT DELTO ID [id number] 216 complet ed [facility] AT OR, [facility] COVID-19 (PFIZER), MRNA, LNP-S, BIVALENT, PF, 30 MCG/0.3 ML DOSE 2021 300 complet ed HISTORICA L INFORMATI ON - FROM OTHER REGISTRY, [facility] INFLUENZA, HIGH-DOSE, QUADRIVALENT 2021 197 complet ed HISTORICA L INFORMATI ON - FROM OTHER REGISTRY, [facility] INFLUENZA, UNSPECIFIED FORMULATION 2021 88 complet ed HISTORICA L INFORMATI ON - FROM PUBLIC AGENCY, [facility] COVID-19 (PFIZER), MRNA, LNP-S, PF, 30 MCG/0.3 ML DOSE 2020 208 complet ed HISTORICA L INFORMATI ON - FROM OTHER REGISTRY, [facility] COVID-19 (PFIZER), MRNA, LNP-S, PF, 30 MCG/0.3 ML DOSE 3 2020 208 complet ed PRF; [id number]; 2 [facility] INFLUENZA, INJECTABLE, QUADRIVALENT, PRESERVATIVE FREE 2020 150 complet ed [facility] COVID-19 (PFIZER), MRNA, LNP-S, PF, 30 MCG/0.3 ML DOSE 2 2020 208 complet ed PFR; [id number]; 1 [facility] COVID-19 (PFIZER), MRNA, LNP-S, PF, 30 MCG/0.3 ML DOSE 1 2020 208 complet ed PFR; [id number]; 1 [facility] ZOSTER RECOMBINANT 2 2020 187 complet ed [facility] INFLUENZA, INJECTABLE, QUADRIVALENT, PRESERVATIVE FREE 2019 150 complet ed [facility] PNEUMOCOCCAL POLYSACCHARID E [id number] 2019 33 complet ed Merck,T01 [id number] B,2021 [facility] TDAP 2019 115 complet ed [id number] ,07/17/21 [facility] ZOSTER RECOMBINANT 1 2019 187 complet ed [facility] influenza, injectable, quadrivalent- pf 2018 zGary t Arm [id number] 150 [employer] complet ed influenza , injectabl e, quadrival ent-pf 04/30/19 Given Ambulat ory Pharmac y Influenza, injectable, quadrivalent, preservative free 1 2018 [id number] 150 [employer] (SEQ) complet ed Influenza , injectabl e, quadrival ent, preservat arelis free DoD influenza, seasonal, injectable-pf 2014 zGary t Arm [id number] 140 CSL Behring complet ed influenza , seasonal, injectabl e-pf 03/15/15 Given Ambulat ory Pharmac y Influenza, seasonal, injectable, preservative free 1 2014 Unknown, Provider [id number] 140 CS [employer] (CSL) complet ed Influenza , seasonal, injectabl e, preservat arelis free DoD influenza, injectable, quadrivalent- pf 2013 [id number] 150 GlaxoSmithK[employer] ne complet ed influenza , injectabl e, quadrival ent-pf 03/20/14 Given Ambulat ory Pharmac y influenza, seasonal, injectable-pf 2013 [id number] 140 Gl[employer] ne complet ed influenza , seasonal, injectabl e-pf 03/20/14 Given Ambulat ory Pharmac y Influenza, seasonal, injectable, preservative free 1 2013 Unknown, Provider [id number] 140 [employer] (SKB) complet ed Influenza , seasonal, injectabl e, preservat arelis free DoD Influenza, injectable, quadrivalent, preservative free 0 2013 [id number] 150 [employer] (SKB) complet ed Influenza , injectabl e, quadrival ent, preservat arelis free DoD zoster vaccine live 2012 Aamir t Arm [id number] [employer] complet ed zoster vaccine live 01/10/13 Given Ambulat ory Pharmac y tetanus, diphtheria, acellular pertu is 2012 zzLef t Arm [id number] 115 [place] [employer] complet ed tetanus, diphtheri a, acellular pertussis 01/10/13 Given Ambulat ory Pharmac y tetanus toxoid, reduced diphtheria toxoid, and acellular pertu is vaccine, adsorbed 1 2012 RITZADE, LAVIVONE T [id number] 115 [employer] (SKB) complet ed tetanus toxoid, reduced diphtheri a toxoid, and acellular pertussis vaccine, adsorbed DoD zoster vaccine, live 1 2012 RITZADE, LAVIVONE T [id number] Merck (MSD) complet ed zoster vaccine, live DoD influenza virus vaccine,split 2006 [id number] 15 sanofi pasteur complet ed influenza virus vaccine,s plit 06/27/06 Given Ambulat ory Pharmac y influenza virus vaccine, split virus (incl. purified surface antigen)-reti red CODE 1 2006 [id number] 15 Sanofi Pasteur ([facility]) complet ed influenza virus vaccine, split virus (incl. purified surface antigen)- retired CODE DoD influenza virus vaccine,split 2004 [id number] 15 sanofi pasteur complet ed influenza virus vaccine,s plit 05/04/05 Given Ambulat ory Pharmac y influenza virus vaccine, split virus (incl. purified surface antigen)-reti red CODE 1 2004 [id number] 15 Sanofi Pasteur ([facility]) complet ed influenza virus vaccine, split virus (incl. purified surface antigen)- retired CODE DoD influenza virus vaccine,split 2004 [id number] 15 sanofi pasteur complet ed influenza virus vaccine,s plit 08/27/04 Given Ambulat ory Pharmac y influenza virus vaccine, split virus (incl. purified surface antigen)-reti red CODE 0 2004 [id number] 15 Sanofi Pasteur ([facility]) complet ed influenza virus vaccine, split virus (incl. purified surface antigen)- retired CODE [facility] influenza virus vaccine, whole virus 2002 [id number] 16 [employer] complet ed influenza virus vaccine, whole virus 05/15/03 Given Ambulat ory Pharmac y tetanus-dipht h toxoids (Td) adult/adol 2002 TD-103 09 [place] [employer] complet ed tetanus-d [facility] toxoids (Td) adult/ado l 05/15/03 Given Ambulat ory Pharmac y tetanus and diphtheria toxoids, adsorbed, preservative free, for adult use (2 Lf of tetanus toxoid and 2 Lf of diphtheria toxoid) 0 2002 TD-103 09 [facility] (MBL) complet ed tetanus and diphtheri a toxoids, adsorbed, preservat arelis free, for adult use (2 Lf of tetanus toxoid and 2 Lf of diphtheri a toxoid) DoD influenza virus vaccine, whole virus 0 2002 [id number] 16 [employer] (PWJ) complet ed influenza virus vaccine, whole virus DoD influenza virus vaccine, whole virus 2002 16 complet ed influenza virus vaccine, whole virus 07/04/02 Given Ambulat ory Pharmac y influenza virus vaccine, whole virus 0 2002 16 () complet ed influenza virus vaccine, whole virus DoD influenza virus vaccine, whole virus 2001 16 complet ed influenza virus vaccine, whole virus 06/21/01 Given Ambulat ory Pharmac y influenza virus vaccine, whole virus 0 2001 16 () complet ed influenza virus vaccine, whole virus DoD influenza virus vaccine, whole virus [id number] 16 [facility] complet ed influenza virus vaccine, whole virus 04/14/99 Given Ambulat ory Pharmac y influenza virus vaccine, whole virus 0 [id number] 16 [facility] (CON) complet ed influenza virus vaccine, whole virus DoD typhoid vaccine, inactivated 1998 0910-2 101 [facility] complet ed typhoid vaccine, inactivat ed 11/06/98 Given Ambulat ory Pharmac y typhoid vaccine, parenteral, other than acetone-kille d, dried 0 1998 0910-2 41 [facility] (CON) complet ed typhoid vaccine, parentera l, other than acetone-k illed, dried [facility] tuberculin purified protein derivative 1998 2496-11 96 [facility] complet ed Patient Tolerance : Negative Ambulat ory Pharmac y tuberculin skin test; purified protein derivative solution, intradermal 1 1998 Unknown, Provider [id number] 96 [place] (CON) complet ed tuberculi n skin test; purified protein derivativ e solution, intraderm al DoD meningococcal polysaccharid e (MPSV4) [id number] [id number] [facility] meningoco ccal polysacch aride (MPSV4) 08/12/98 Given Ambulat ory Pharmac y meningococcal polysaccharid e vaccine (MPSV4) 0 19987543 1897331 32 [facility] ([facility] complet ed meningoco ccal polysacch aride vaccine (MPSV4) DoD influenza virus vaccine, whole virus [id number] PFIZER complet ed influenza virus vaccine, whole virus 03/11/98 Given Ambulat ory Pharmac y influenza virus vaccine, whole virus 0 [id number] [place] ([place]active[place] ([place] complet ed influenza virus vaccine, whole virus DoD influenza virus vaccine, whole virus [id number] PFIZER complet ed influenza virus vaccine, whole virus 04/21/97 Given Ambulat ory Pharmac y influenza virus vaccine, whole virus 0 [id number] 16 [place] complet ed influenza virus vaccine, whole virus DoD hepatitis A adult vaccine [id number] PFIZER complet ed hepatitis A adult vaccine 01/26/97 Given Ambulat ory Pharmac y hepatitis A vaccine, adult dosage 2 [id number] [place] complet ed hepatitis A vaccine, adult dosage DoD typhoid vaccine, inactivated [id number] 101 PFIZER complet ed typhoid vaccine, inactivat ed 07/13/96 Given Ambulat ory Pharmac y typhoid vaccine, parenteral, other than acetone-kille d, dried 0 [id number] 41 [place] ([place] complet ed typhoid vaccine, parentera l, other than acetone-k illed, dried DoD hepatitis A adult vaccine 1995 52 complet ed hepatitis A adult vaccine 03/12/96 Given Ambulat ory Pharmac y hepatitis A vaccine, adult dosage 1 1995 52 () complet ed hepatitis A vaccine, adult dosage DoD yellow fever vaccine 1990 37 complet ed yellow fever vaccine 05/12/91 Given Ambulat ory Pharmac y yellow fever vaccine 0 1990 37 () complet ed yellow fever vaccine DoD tetanus-dipht h toxoids (Td) adult/adol 1990 09 complet ed tetanus-d iphth toxoids (Td) adult/ado l 07/13/90 Given Ambulat ory Pharmac y tetanus and diphtheria toxoids, adsorbed, preservative free, for adult use (2 Lf of tetanus toxoid and 2 Lf of diphtheria toxoid) 0 1990 09 () complet ed tetanus and diphtheri a toxoids, adsorbed, preservat arelis free, for adult use (2 Lf of tetanus toxoid and 2 Lf of diphtheri a toxoid) DoD poliovirus vaccine, live, oral 1979 02 complet ed polioviru s vaccine, live, oral 12/11/79 Given Ambulat ory Pharmac y trivalent poliovirus vaccine, live, oral 0 1979 02 () complet ed trivalent polioviru s vaccine, live, oral DoD measles/mumps /rubella virus vaccine 1978 03 complet ed measles/m umps/rube lla virus vaccine 11/10/78 Given Ambulat ory Pharmac y measles, mumps and rubella virus vaccine 0 1978 03 () complet ed measles, mumps and rubella virus vaccine DoD Results Combined list of recent chemistry, hematology and other laboratory results from [facility] [employer] and [facility], ranging from 15 months to all on record, depending upon the facility. Order Name Results Value Reference Range Date Interpretation Specimen Comments Source COMPREHEN SIVE METABOLIC PANEL+MG CREATININE [MASS/VOLUM E] IN SERUM OR PLASMA 0.7 mg/dL 0.7 - 1.2 03/20 Specimen Type: PLASMA No comment entered. Ordering Provider: MELITON DOMINGUEZ Report Released Date/Time: Aug 22, 2023 02:23 PM Reporting Lab: [facility] [address] Performing Lab: [facility] [address] [facility] COMPREHEN SIVE METABOLIC PANEL+MG UREA NITROGEN [MASS/VOLUM E] IN SERUM OR PLASMA 20 mg/dL 8 - 26 03/20 Specimen Type: PLASMA No comment entered. Ordering Provider: MELITON DOMINGUEZ Report Released Date/Time: Aug 22, 2023 02:23 PM Reporting Lab: [facility] [address] Performing Lab: [facility] [address] [place] [facility] COMPREHEN SIVE METABOLIC PANEL+MG GLUCOSE [MASS/VOLUM E] IN SERUM OR PLASMA 117 mg/dL 70 - 100 03/20 H Specimen Type: PLASMA No comment entered. Ordering Provider: MELITON DOMINGUEZ Report Released Date/Time: Aug 22, 2023 02:23 PM Reporting Lab: [facility] [address] Performing Lab: [facility] [address] [place] [facility] COMPREHEN SIVE METABOLIC PANEL+MG SODIUM [MOLES/VOLU ME] IN SERUM OR PLASMA 141 mmol/L 136 - 145 03/20 Specimen Type: PLASMA No comment entered. Ordering Provider: MEILTON DOMINGUEZ Report Released Date/Time: Aug 22, 2023 02:23 PM Reporting Lab: [facility] [address] Performing Lab: [facility] [address] [place] [facility] COMPREHEN SIVE METABOLIC PANEL+MG POTASSIUM [MOLES/VOLU ME] IN SERUM OR PLASMA 4.5 mmol/L 3.5 - 5.1 03/20 Specimen Type: PLASMA No comment entered. Ordering Provider: MELITON DOMINGUEZ Report Released Date/Time: Aug 22, 2023 02:23 PM Reporting Lab: [facility] [address] Performing Lab: [facility] [address] [place] [facility] COMPREHEN SIVE METABOLIC PANEL+MG CHLORIDE [MOLES/VOLU ME] IN SERUM OR PLASMA 106 mmol/L 98 - 107 03/20 Specimen Type: PLASMA No comment entered. Ordering Provider: MELITON DOMINGUEZ Report Released Date/Time: Aug 22, 2023 02:23 PM Reporting Lab: [facility] [address] Performing Lab: [facility] [address] [place] [facility] COMPREHEN SIVE METABOLIC PANEL+MG CARBON DIOXIDE, TOTAL [MOLES/VOLU ME] IN SERUM OR PLASMA 27 mmol/L 22 - 29 03/20 Specimen Type: PLASMA No comment entered. Ordering Provider: MELITON DOMINGUEZ Report Released Date/Time: Aug 22, 2023 02:23 PM Reporting Lab: [facility] [address] Performing Lab: [facility] [address] [place] [facility] COMPREHEN SIVE METABOLIC PANEL+MG CALCIUM [MASS/VOLUM E] IN SERUM OR PLASMA 9.3 mg/dL 8.4 - 10.2 03/20 Specimen Type: PLASMA No comment entered. Ordering Provider: MELITON DOMINGUEZ Report Released Date/Time: Aug 22, 2023 02:23 PM Reporting Lab: [facility] [address] Performing Lab: [facility] [address] [place] [facility] COMPREHEN SIVE METABOLIC PANEL+MG PROTEIN [MASS/VOLUM E] IN SERUM OR PLASMA 7.0 g/dL 6.4 - 8.3 03/20 Specimen Type: PLASMA No comment entered. Ordering Provider: MELITON DOMINGUEZ Report Released Date/Time: Aug 22, 2023 02:23 PM Reporting Lab: [facility] [address] Performing Lab: [facility] [address] [place] [facility] COMPREHEN SIVE METABOLIC PANEL+MG ALBUMIN [MASS/VOLUM E] IN SERUM OR PLASMA 4.3 g/dL 3.5 - 5.2 03/20 Specimen Type: PLASMA No comment entered. Ordering Provider: MELITON DOMINGUEZ Report Released Date/Time: Aug 22, 2023 02:23 PM Reporting Lab: [facility] [address] Performing Lab: [facility] [address] [place] [facility] COMPREHEN SIVE METABOLIC PANEL+MG BILIRUBIN.T OTAL [MASS/VOLUM E] IN SERUM OR PLASMA 1.3 mg/dL 0.2 - 1.2 03/20 H Specimen Type: PLASMA No comment entered. Ordering Provider: MELITON DOMINGUEZ Report Released Date/Time: Aug 22, 2023 02:23 PM Reporting Lab: [facility] [address] Performing Lab: [facility] [address] [place] [facility] COMPREHEN SIVE METABOLIC PANEL+MG MAGNESIUM [MASS/VOLUM E] IN SERUM OR PLASMA 1.9 mg/dL 1.6 - 2.6 03/20 Specimen Type: PLASMA No comment entered. Ordering Provider: MELITON DOMINGUEZ Report Released Date/Time: Aug 22, 2023 02:23 PM Reporting Lab: [facility] [address] Performing Lab: [facility] [address] [place] [facility] COMPREHEN SIVE METABOLIC PANEL+MG ANION GAP IN SERUM OR PLASMA 8 mmol/L 5 - 15 03/20 Specimen Type: PLASMA No comment entered. Ordering Provider: MELITON DOMINGUEZ Report Released Date/Time: Aug 22, 2023 02:23 PM Reporting Lab: [facility] [address] Performing Lab: [facility] [address] [place] [facility] COMPREHEN SIVE METABOLIC PANEL+MG ALKALINE PHOSPHATASE [ENZYMATIC ACTIVITY/VO LUME] IN SERUM OR PLASMA 55 U/L 40 - 150 03/20 Specimen Type: PLASMA No comment entered. Ordering Provider: MELITON DOMINGUEZ Report Released Date/Time: Aug 22, 2023 02:23 PM Reporting Lab: [facility] [address] Performing Lab: [facility] [address] [place] [facility] COMPREHEN SIVE METABOLIC PANEL+MG ALANINE AMINOTRANSF ERASE [ENZYMATIC ACTIVITY/VO LUME] IN SERUM OR PLASMA <7U/L <44 - 44 03/20 Specimen Type: PLASMA No comment entered. Ordering Provider: MELITON DOMINGUEZ Report Released Date/Time: Aug 22, 2023 02:23 PM Reporting Lab: [facility] [address] Performing Lab: [facility] [address] [place] [facility] COMPREHEN SIVE METABOLIC PANEL+MG ASPARTATE AMINOTRANSF ERASE [ENZYMATIC ACTIVITY/VO LUME] IN SERUM OR PLASMA 29 U/L 11 - 34 03/20 Specimen Type: PLASMA No comment entered. Ordering Provider: MELITON DOMINGUEZ Report Released Date/Time: Aug 22, 2023 02:23 PM Reporting Lab: [facility] [address] Performing Lab: [facility] [address] [place] [facility] COMPREHEN SIVE METABOLIC PANEL+MG GLOMERULAR FILTRATION RATE/1.73 SQ M.PREDICTED [VOLUME RATE/AREA] IN SERUM, PLASMA OR BLOOD BY CREATININE- BASED FORMULA (CKD-EPI 2020) >90 60 03/20 Specimen Type: PLASMA No comment entered. Ordering Provider: MELITON DOMINGUEZ Report Released Date/Time: Aug 22, 2023 02:23 PM Reporting Lab: [facility] [address] Performing Lab: [facility] [address] [place] [facility] COMPREHEN SIVE METABOLIC PANEL+MG BILIRUBIN.D IRECT [MASS/VOLUM E] IN SERUM OR PLASMA 0.4 mg/dL <0.5 - 0.5 03/20 Specimen Type: PLASMA No comment entered. Ordering Provider: MELITON DOMINGUEZ Report Released Date/Time: Aug 22, 2023 02:23 PM Reporting Lab: [facility] [address] Performing Lab: [facility] [address] [place] [facility] HEMOGLOBI N A1C HEMOGLOBIN A1C/HEMOGLO BIN.TOTAL IN BLOOD 5.6 4.0 - 6.0 03/20 Specimen Type: BLOOD Comment: Values obtained from A1C measurement s can vary. For typical A1C assays, a reported value of 7.0 could actually be between 6.7 and 7.3 if measured by a reference method. A reported value of 9.0 could actually be between 8.7 and 9.3. Ref: http://[email or web address] ngsp.org/[place] Pdata.asp Ordering Provider: MELITON DOMINGUEZ Report Released Date/Time: Aug 22, 2023 02:23 PM Reporting Lab: [facility] [address] Performing Lab: [facility] [address] [place] [facility] PSA PROSTATE SPECIFIC AG [MASS/VOLUM E] IN SERUM OR PLASMA 0.51 ng/mL <4.00 - 4.00 03/20 Specimen Type: SERUM No comment entered. Ordering Provider: MELITON DOMINGUEZ Report Released Date/Time: Aug 22, 2023 02:23 PM Reporting Lab: [facility] [address] Performing Lab: [facility] [address] [place] [facility] TSH W/REFLEX TO FREE T4 THYROTROPIN [UNITS/VOLU ME] IN SERUM OR PLASMA 0.95 u[IU]/ mL 0.35 - 4.94 03/20 Specimen Type: PLASMA No comment entered. Ordering Provider: MELITON DOMINGUEZ Report Released Date/Time: Aug 22, 2023 02:23 PM Reporting Lab: [facility] [address] Performing Lab: [facility] [address] [place] [facility] CBC & DIFF LEUKOCYTES [#/VOLUME] IN BLOOD BY AUTOMATED COUNT 5.59 10*3/u L 4.0 - 11.0 08/21 Specimen Type: BLOOD Comment: Automated Differentia l Performed Ordering Provider: MELITON DOMINGUEZ Report Released Date/Time: Jan 18, 2023 11:07 AM Reporting Lab: [facility] [address] Performing Lab: [facility] [address] [place] [facility] CBC & DIFF ERYTHROCYTE S [#/VOLUME] IN BLOOD BY AUTOMATED COUNT 5.38 10*6/u L 4.6 - 6.2 08/21 Specimen Type: BLOOD Comment: Automated Differentia l Performed Ordering Provider: MELITON DOMINGUEZ Report Released Date/Time: Jan 18, 2023 11:07 AM Reporting Lab: [facility] [address] Performing Lab: [facility] [address] [place] [facility] CBC & DIFF HEMOGLOBIN [MASS/VOLUM E] IN BLOOD 16.4 g/dL 13.5 - 17.9 08/21 Specimen Type: BLOOD Comment: Automated Differentia l Performed Ordering Provider: MELITON DOMINGUEZ Report Released Date/Time: Jan 18, 2023 11:07 AM Reporting Lab: [facility] [address] Performing Lab: [facility] [address] [place] [facility] CBC & DIFF HEMATOCRIT [VOLUME FRACTION] OF BLOOD BY AUTOMATED COUNT 46.2 41 - 54 08/21 Specimen Type: BLOOD Comment: Automated Differentia l Performed Ordering Provider: MELITON DOMINGUEZ Report Released Date/Time: Jan 18, 2023 11:07 AM Reporting Lab: [facility] [address] Performing Lab: [facility] [address] [place] [facility] CBC & DIFF MCV [ENTITIC VOLUME] BY AUTOMATED COUNT 85.9 fL 80 - 100 08/21 Specimen Type: BLOOD Comment: Automated Differentia l Performed Ordering Provider: MELITON DOMINGUEZ Report Released Date/Time: Jan 18, 2023 11:07 AM Reporting Lab: [facility] [address] Performing Lab: [facility] [address] [place] [facility] CBC & DIFF MCH [ENTITIC MASS] BY AUTOMATED COUNT 30.5 pg 27 - 33 08/21 Specimen Type: BLOOD Comment: Automated Differentia l Performed Ordering Provider: MELITON DOMINGUEZ Report Released Date/Time: Jan 18, 2023 11:07 AM Reporting Lab: [facility] [address] Performing Lab: [facility] [address] [place] [facility] CBC & DIFF MCHC [MASS/VOLUM E] BY AUTOMATED COUNT 35.5 g/dL 32.0 - 37.5 08/21 Specimen Type: BLOOD Comment: Automated Differentia l Performed Ordering Provider: MELITON DOMINGUEZ Report Released Date/Time: Jan 18, 2023 11:07 AM Reporting Lab: [facility] [address] Performing Lab: [facility] [address] [place] [facility] CBC & DIFF PLATELETS [#/VOLUME] IN BLOOD BY AUTOMATED COUNT 149 10*3/u L 150 - 400 08/21 L Specimen Type: BLOOD Comment: Automated Differentia l Performed Ordering Provider: MELITON DOMINGUEZ Report Released Date/Time: Jan 18, 2023 11:07 AM Reporting Lab: [facility] [address] Performing Lab: [facility] [address] [place] [facility] CBC & DIFF PLATELET MEAN VOLUME [ENTITIC VOLUME] IN BLOOD BY AUTOMATED COUNT 10.4 fL 7.4 - 10.4 08/21 Specimen Type: BLOOD Comment: Automated Differentia l Performed Ordering Provider: MELITON DOMINGUEZ Report Released Date/Time: Jan 18, 2023 11:07 AM Reporting Lab: [facility] [address] Performing Lab: [facility] [address] [place] [facility] CBC & DIFF NEUTROPHILS /100 LEUKOCYTES IN BLOOD BY MANUAL COUNT 58.6 40.0 - 80.0 08/21 Specimen Type: BLOOD Comment: Automated Differentia l Performed Ordering Provider: MELITON DOMINGUEZ Report Released Date/Time: Jan 18, 2023 11:07 AM Reporting Lab: [facility] [address] Performing Lab: [facility] [address] [place] [facility] CBC & DIFF LYMPHOCYTES /100 LEUKOCYTES IN BLOOD BY MANUAL COUNT 31.5 15.0 - 45.0 08/21 Specimen Type: BLOOD Comment: Automated Differentia l Performed Ordering Provider: MELITON DOMINGUEZ Report Released Date/Time: Jan 18, 2023 11:07 AM Reporting Lab: [facility] [address] Performing Lab: [facility] [address] [place] [facility] CBC & DIFF MONOCYTES/1 00 LEUKOCYTES IN BLOOD BY AUTOMATED COUNT 6.8 2.0 - 12.0 08/21 Specimen Type: BLOOD Comment: Automated Differentia l Performed Ordering Provider: MELITON DOMINGUEZ Report Released Date/Time: Jan 18, 2023 11:07 AM Reporting Lab: [facility] [address] Performing Lab: [facility] [address] [place] [facility] CBC & DIFF EOSINOPHILS /100 LEUKOCYTES IN BLOOD BY AUTOMATED COUNT 2.5 0.0 - 6.0 08/21 Specimen Type: BLOOD Comment: Automated Differentia l Performed Ordering Provider: MELITON DOMINGUEZ Report Released Date/Time: Jan 18, 2023 11:07 AM Reporting Lab: [facility] [address] Performing Lab: [facility] [address] [place] [facility] CBC & DIFF BASOPHILS/1 00 LEUKOCYTES IN BLOOD BY MANUAL COUNT 0.4 0.0 - 2.0 08/21 Specimen Type: BLOOD Comment: Automated Differentia l Performed Ordering Provider: MELITON DOMINGUEZ Report Released Date/Time: Jan 18, 2023 11:07 AM Reporting Lab: [facility] [address] Performing Lab: [facility] [address] [place] [facility] CBC & DIFF ERYTHROCYTE DISTRIBUTIO N WIDTH [RATIO] BY AUTOMATED COUNT 13.0 11.5 - 14.5 08/21 Specimen Type: BLOOD Comment: Automated Differentia l Performed Ordering Provider: MELITON DOMINGUEZ Report Released Date/Time: Jan 18, 2023 11:07 AM Reporting Lab: [facility] [address] Performing Lab: [facility] [address] [place] [facility] CBC & DIFF LYMPHOCYTES [#/VOLUME] IN BLOOD BY AUTOMATED COUNT 1.76 10*3/u L 1.0 - 4.0 08/21 Specimen Type: BLOOD Comment: Automated Differentia l Performed Ordering Provider: MELITON DOMINGUEZ Report Released Date/Time: Jan 18, 2023 11:07 AM Reporting Lab: [facility] [address] Performing Lab: [facility] [address] [place] [facility] CBC & DIFF MONOCYTES [#/VOLUME] IN BLOOD BY AUTOMATED COUNT 0.38 10*3/u L 0.1 - 1.0 08/21 Specimen Type: BLOOD Comment: Automated Differentia l Performed Ordering Provider: MELITON DOMINGUEZ Report Released Date/Time: Jan 18, 2023 11:07 AM Reporting Lab: [facility] [address] Performing Lab: [facility] [address] [place] [facility] CBC & DIFF NEUTROPHILS [#/VOLUME] IN BLOOD BY AUTOMATED COUNT 3.28 10*3/u L 2.0 - 7.7 08/21 Specimen Type: BLOOD Comment: Automated Differentia l Performed Ordering Provider: MELITON DOMINGUEZ Report Released Date/Time: Jan 18, 2023 11:07 AM Reporting Lab: [facility] [address] Performing Lab: [facility] [address] [place] [facility] CBC & DIFF EOSINOPHILS [#/VOLUME] IN BLOOD BY AUTOMATED COUNT 0.14 10*3/u L 0 - 0.5 08/21 Specimen Type: BLOOD Comment: Automated Differentia l Performed Ordering Provider: MELITON DOMINGUEZ Report Released Date/Time: Jan 18, 2023 11:07 AM Reporting Lab: [facility] [address] Performing Lab: [facility] [address] [place] [facility] CBC & DIFF BASOPHILS [#/VOLUME] IN BLOOD BY AUTOMATED COUNT 0.02 10*3/u L 0 - 0.2 08/21 Specimen Type: BLOOD Comment: Automated Differentia l Performed Ordering Provider: MELITON DOMINGUEZ Report Released Date/Time: Jan 18, 2023 11:07 AM Reporting Lab: [facility] [address] Performing Lab: [facility] [address] [place] [facility] CBC & DIFF IG(META,MYE LO,PRO) 0.2 08/21 Specimen Type: BLOOD Comment: Automated Differentia l Performed Ordering Provider: MELITON DOMINGUEZ Report Released Date/Time: Jan 18, 2023 11:07 AM Reporting Lab: [facility] [address] Performing Lab: [facility] [address] [place] [facility] CBC & DIFF IMMATURE GRANULOCYTE S [PRESENCE] IN BLOOD BY AUTOMATED COUNT 0.01 10*3/u L 0 - 0.1 08/21 Specimen Type: BLOOD Comment: Automated Differentia l Performed Ordering Provider: MELITON DOMINGUEZ Report Released Date/Time: Jan 18, 2023 11:07 AM Reporting Lab: [facility] [address] Performing Lab: [facility] [address] [place] [facility] CREATININ E(INCLUDE S EGFR) CREATININE [MASS/VOLUM E] IN SERUM OR PLASMA 0.7 mg/dL 0.7 - 1.2 08/21 Specimen Type: PLASMA No comment entered. Ordering Provider: MELITON DOMINGUEZ Report Released Date/Time: Jan 18, 2023 11:07 AM Reporting Lab: [facility] [address] Performing Lab: [facility] [address] [place] [facility] CREATININ E(INCLUDE S EGFR) GLOMERULAR FILTRATION RATE/1.73 SQ M.PREDICTED [VOLUME RATE/AREA] IN SERUM, PLASMA OR BLOOD BY CREATININE- BASED FORMULA (CKD-EPI 2020) >90 60 08/21 Specimen Type: PLASMA No comment entered. Ordering Provider: MELITON DOMINGUEZ Report Released Date/Time: Jan 18, 2023 11:07 AM Reporting Lab: [facility] [address] Performing Lab: [facility] [address] [place] [facility] VIT D 25-OH,TOT AL 25-HYDROXYV ITAMIN D3 [MASS/VOLUM E] IN SERUM OR PLASMA 21 ng/mL 12 - 50 08/21 Specimen Type: SERUM No comment entered. Ordering Provider: MELITON DOMINGUEZ Report Released Date/Time: Jan 18, 2023 11:07 AM Reporting Lab: [facility] [address] Performing Lab: [facility] [address] [place] [facility] COMPREHEN SIVE METABOLIC PANEL+MG CREATININE [MASS/VOLUM E] IN SERUM OR PLASMA 0.9 mg/dL 0.7 - 1.2 01/18 Specimen Type: PLASMA No comment entered. Ordering Provider: MELITON DOMINGUEZ Report Released Date/Time: Jul 22, 2022 03:28 PM Reporting Lab: [facility] [address] Performing Lab: [facility] [address] [place] [facility] COMPREHEN SIVE METABOLIC PANEL+MG UREA NITROGEN [MASS/VOLUM E] IN SERUM OR PLASMA 22 mg/dL 8 - 26 01/18 Specimen Type: PLASMA No comment entered. Ordering Provider: MELITON DOMINGUEZ Report Released Date/Time: Jul 22, 2022 03:28 PM Reporting Lab: [facility] [address] Performing Lab: [facility] [address] [place] [facility] COMPREHEN SIVE METABOLIC PANEL+MG GLUCOSE [MASS/VOLUM E] IN SERUM OR PLASMA 115 mg/dL 70 - 100 01/18 H Specimen Type: PLASMA No comment entered. Ordering Provider: MELITON DOMINGUEZ Report Released Date/Time: Jul 22, 2022 03:28 PM Reporting Lab: [facility] [address] Performing Lab: [facility] [id number] [place] [facility] COMPREH[facility]IVE METABOLIC PANEL+MG SODIUM [MOLES/VOLU ME] IN SERUM OR PLASMA 140 mmol/L 136 - 145 01/18 Specimen Type: PLASMA No comment entered. Ordering Provider: MELITON DOMINGUEZ Report Released Date/Time: Jul 22, 2022 03:28 PM Reporting Lab: [facility] [id number] Performing Lab: [facility] [id number] [place] [facility] COMPREHEN SIVE METABOLIC PANEL+MG POTASSIUM [MOLES/VOLU ME] IN SERUM OR PLASMA 4.0 mmol/L 3.5 - 5.1 01/18 Specimen Type: PLASMA No comment entered. Ordering Provider: MELITON DOMINGUEZ Report Released Date/Time: Jul 22, 2022 03:28 PM Reporting Lab: [facility] [address] Performing Lab: [facility] [address] [place] [facility] COMPREHEN SIVE METABOLIC PANEL+MG CHLORIDE [MOLES/VOLU ME] IN SERUM OR PLASMA 108 mmol/L 98 - 107 01/18 H Specimen Type: PLASMA No comment entered. Ordering Provider: MELITON ODMINGUEZ Report Released Date/Time: Jul 22, 2022 03:28 PM Reporting Lab: [facility] [address] Performing Lab: [facility] [address] [place] [facility] COMPREHEN SIVE METABOLIC PANEL+MG CARBON DIOXIDE, TOTAL [MOLES/VOLU ME] IN SERUM OR PLASMA 26 mmol/L 22 - 29 01/18 Specimen Type: PLASMA No comment entered. Ordering Provider: MELITON DOMINGUEZ Report Released Date/Time: Jul 22, 2022 03:28 PM Reporting Lab: [facility] [address] Performing Lab: [facility] [address] [place] [facility] COMPREHEN SIVE METABOLIC PANEL+MG CALCIUM [MASS/VOLUM E] IN SERUM OR PLASMA 9.4 mg/dL 8.4 - 10.2 01/18 Specimen Type: PLASMA No comment entered. Ordering Provider: MELITON DOMINGUEZ Report Released Date/Time: Jul 22, 2022 03:28 PM Reporting Lab: [facility] [address] Performing Lab: [facility] [address] [place] [facility] COMPREHEN SIVE METABOLIC PANEL+MG PROTEIN [MASS/VOLUM E] IN SERUM OR PLASMA 7.1 g/dL 6.0 - 8.3 01/18 Specimen Type: PLASMA No comment entered. Ordering Provider: MELITON DOMINGUEZ Report Released Date/Time: Jul 22, 2022 03:28 PM Reporting Lab: [facility] [address] Performing Lab: [facility] [address] [place] [facility] COMPREHEN SIVE METABOLIC PANEL+MG ALBUMIN [MASS/VOLUM E] IN SERUM OR PLASMA 4.4 g/dL 3.5 - 5.2 01/18 Specimen Type: PLASMA No comment entered. Ordering Provider: MELITON DOMINGUEZ Report Released Date/Time: Jul 22, 2022 03:28 PM Reporting Lab: [facility] [address] Performing Lab: [facility] [address] [place] [facility] COMPREHEN SIVE METABOLIC PANEL+MG BILIRUBIN.T OTAL [MASS/VOLUM E] IN SERUM OR PLASMA 1.6 mg/dL 0.2 - 1.2 01/18 H Specimen Type: PLASMA No comment entered. Ordering Provider: MELITON DOMINGUEZ Report Released Date/Time: Jul 22, 2022 03:28 PM Reporting Lab: [facility] [address] Performing Lab: [facility] [address] [place] [facility] COMPREHEN SIVE METABOLIC PANEL+MG MAGNESIUM [MASS/VOLUM E] IN SERUM OR PLASMA 1.9 mg/dL 1.6 - 2.6 01/18 Specimen Type: PLASMA No comment entered. Ordering Provider: MELITON DOMINGUEZ Report Released Date/Time: Jul 22, 2022 03:28 PM Reporting Lab: [facility] [address] Performing Lab: [facility] [address] [place] [facility] COMPREHEN SIVE METABOLIC PANEL+MG ANION GAP IN SERUM OR PLASMA 6 mmol/L 5 - 15 01/18 Specimen Type: PLASMA No comment entered. Ordering Provider: MELITON DOMINGUEZ Report Released Date/Time: Jul 22, 2022 03:28 PM Reporting Lab: [facility] [address] Performing Lab: [facility] [address] [place] [facility] COMPREHEN SIVE METABOLIC PANEL+MG ALKALINE PHOSPHATASE [ENZYMATIC ACTIVITY/VO LUME] IN SERUM OR PLASMA 59 U/L 40 - 150 01/18 Specimen Type: PLASMA No comment entered. Ordering Provider: MELITON DOMINGUEZ Report Released Date/Time: Jul 22, 2022 03:28 PM Reporting Lab: [facility] [address] Performing Lab: [facility] [address] [place] [facility] COMPREHEN SIVE METABOLIC PANEL+MG ALANINE AMINOTRANSF ERASE [ENZYMATIC ACTIVITY/VO LUME] IN SERUM OR PLASMA 7 U/L <55 - 55 01/18 Specimen Type: PLASMA No comment entered. Ordering Provider: MELITON DOMINGUEZ Report Released Date/Time: Jul 22, 2022 03:28 PM Reporting Lab: [facility] [address] Performing Lab: [facility] [address] [place] [facility] COMPREHEN SIVE METABOLIC PANEL+MG ASPARTATE AMINOTRANSF ERASE [ENZYMATIC ACTIVITY/VO LUME] IN SERUM OR PLASMA 24 U/L <34 - 34 01/18 Specimen Type: PLASMA No comment entered. Ordering Provider: MELITON DOMINGUEZ Report Released Date/Time: Jul 22, 2022 03:28 PM Reporting Lab: [facility] [address] Performing Lab: [facility] [address] [place] [facility] COMPREHEN SIVE METABOLIC PANEL+MG GLOMERULAR FILTRATION RATE/1.73 SQ M.PREDICTED [VOLUME RATE/AREA] IN SERUM, PLASMA OR BLOOD BY CREATININE- BASED FORMULA (CKD-EPI 2020) >90 60 01/18 Specimen Type: PLASMA No comment entered. Ordering Provider: MELITON DOMINGUEZ Report Released Date/Time: Jul 22, 2022 03:28 PM Reporting Lab: [facility] [address] Performing Lab: [facility] [address] [facility] COMPREHEN SIVE METABOLIC PANEL+MG BILIRUBIN.D IRECT [MASS/VOLUM E] IN SERUM OR PLASMA 0.5 mg/dL <0.5 - 0.5 01/18 Specimen Type: PLASMA No comment entered. Ordering Provider: MELITON DOMINGUEZ Report Released Date/Time: Jul 22, 2022 03:28 PM Reporting Lab: [facility] [address] Performing Lab: [facility] [address] [facility] HEMOGLOBI N A1C HEMOGLOBIN A1C/HEMOGLO BIN.TOTAL IN BLOOD 5.4 4.0 - 6.0 01/18 Specimen Type: BLOOD Comment: Values obtained from A1C measurement s can vary. For typical A1C assays, a reported value of 7.0 could actually be between 6.7 and 7.3 if measured by a reference method. A reported value of 9.0 could actually be between 8.7 and 9.3. Ref: http://www. ngsp.org/[place] Pdata.asp Ordering Provider: MELITON DOMINGUEZ Report Released Date/Time: Jul 22, 2022 03:28 PM Reporting Lab: [facility] [address] Performing Lab: [facility] [address] [facility] PSA PROSTATE SPECIFIC AG [MASS/VOLUM E] IN SERUM OR PLASMA 0.48 ng/mL <4.00 - 4.00 01/18 Specimen Type: SERUM No comment entered. Ordering Provider: MELITON DOMINGUEZ Report Released Date/Time: Jul 22, 2022 03:28 PM Reporting Lab: [facility] [address] [place] [address] Performing Lab: [facility] [address] [facility] [address] [facility] GUTIERRE[facility] Vital Signs Combined list of inpatient and outpatient Vital Signs from Department of Defense and Veterans Affairs, ranging from 12 months to all on record, depending upon the facility. Vital Sign Value Date Comments Source SYSTOLIC BLOOD PRESSURE 124 10/15/2024 14:50:16 [facility] DIASTOLIC BLOOD PRESSURE 85 10/15/2024 14:50:16 [facility] PULSE OXIMETRY 96 10/15/2024 14:50:16 [place] [facility] WEIGHT 229.5 10/15/2024 14:50:16 [place] [facility] BMI 33 kg/m2 10/15/2024 14:50:16 [place] [facility] [facility] PAIN 10 10/15/2024 14:50:16 [place] [facility] TEMPERATURE 97 10/15/2024 14:50:16 [place] [facility] PULSE 86 10/15/2024 14:50:16 [place] [facility] RESPIRATION 16 10/15/2024 14:50:16 [place] [facility] SYSTOLIC BLOOD PRESSURE 119 09/19/2024 14:12:33 [facility] DIASTOLIC BLOOD PRESSURE 81 09/19/2024 14:12:33 [facility] PULSE OXIMETRY 97 09/19/2024 14:12:33 [place] [facility] TEMPERATURE 97.1 09/19/2024 14:12:33 [place] [facility] PULSE 72 09/19/2024 14:12:33 [place] [facility] RESPIRATION 16 09/19/2024 14:12:33 [place] [facility] SYSTOLIC BLOOD PRESSURE 116 09/10/2024 09:29:31 [facility] DIASTOLIC BLOOD PRESSURE 81 09/10/2024 09:29:31 [facility] PULSE OXIMETRY 94 09/10/2024 09:29:31 [place] [facility] WEIGHT 231.7 09/10/2024 09:29:31 [place] [facility] BMI 34 kg/m2 09/10/2024 09:29:31 [place] [facility] [facility] PAIN 0 09/10/2024 09:29:31 [place] [facility] PULSE 66 09/10/2024 09:29:31 [place] [facility] RESPIRATION 18 09/10/2024 09:29:31 [place] [facility] SYSTOLIC BLOOD PRESSURE 115 05/28/2024 13:57:57 [facility] DIASTOLIC BLOOD PRESSURE 80 05/28/2024 13:57:57 [facility] PULSE OXIMETRY 92 05/28/2024 13:57:57 [place] [facility] PAIN 0 05/28/2024 13:57:57 [place] [facility] TEMPERATURE 97.9 05/28/2024 13:57:57 [place] [facility] PULSE 68 05/28/2024 13:57:57 [place] [facility] [facility] RESPIRATION 16 05/28/2024 13:57:57 [place] [facility] SYSTOLIC BLOOD PRESSURE 116 03/20/2024 10:56:23 [facility] DIASTOLIC BLOOD PRESSURE 77 03/20/2024 10:56:23 [facility] PULSE OXIMETRY 96 03/20/2024 10:56:23 [facility] WEIGHT 235.6 03/20/2024 10:56:23 [place] [facility] BMI 34 kg/m2 03/20/2024 10:56:23 [place] [facility] [facility] PAIN 0 03/20/2024 10:56:23 [place] [facility] TEMPERATURE 96.7 03/20/2024 10:56:23 [place] [facility] PULSE 63 03/20/2024 10:56:23 [place] [facility] RESPIRATION 16 03/20/2024 10:56:23 [place] [facility] Encounters Combined list of: 1) Encounters from Department of Veterans Affairs facilities going backup to the last 18 months, not all VA inpatient encounters are included; 2) Encounters from the Department of Defense facilities going backup to 280 months. Location Location Details Encounter Type Encounter Number Reason For Visit Attending Provider ADM Date DC Date Status Disposition Source [facility](L Pulmonary Functions ) OUTPATIENT [id number] meth R/o asthma CRISTIAN DIAZ 03/04 Released w/o Limitations [facility](LSL Pulmona ry Functio ns) [facility](RSN [facility] Element B-1) OUTPATIENT [id number] ling BUENO LUCIEN G 05/17 Released w/o Limitations [facility] Element B-1) [facility] Element B-1) OUTPATIENT [id number] F/U RT SHOULDE R PAIN LUCIEN BUENO 07/04 Released w/o Limitations [facility] Element B-1) [facility] Physical Therapy) OUTPATIENT [id number] TENDONI TIS ROTATOR CUFF TARA RICE 07/20 Released w/o Limitations [facility](N Physica l Therapy ) [facility] Element B-1) TELE CONSULT [id number] TREV RIDDLE 08/05 [facility] Element B-1) [facility] Element B-1) OUTPATIENT [id number] LT FOOT PAIN/SW LOU WEAVER 08/15 Released w/o Limitations [facility] Element B-1) [facility](LSL Brace Shop) OUTPATIENT [id number] orthope dic DEBORAH Rdz 08/15 Released w/o Limitations [facility]) [facility](L Physical Therapy) OUTPATIENT [id number] PT NEED CRUTCHE S TRINI NOBLE 08/15 Released w/o Limitations [facility](LSL Physica l Therapy ) [facility](LS Orthopedi cs) OUTPATIENT [id number] SHOULDE R JOINT DISORDE R AVANI MCCURDY 09/20 Released w/o Limitations [facility]SL Orthope dics) [facility] Element B-1) OUTPATIENT [id number] suture removal LOU REBOLLAR 10/17 Released w/o Limitations [facility] Element B-1) [facility](RSN Optometry ) OUTPATIENT [id number] eye exam, DHEERAJ CELAYA 10/24 Released w/o Limitations [facility](RSN Optomet ry) [facility](LSL Orthopedi cs) TELE CONSULT [id number] pt needs appt AVANI MCCURDY 11/21 [facility](LSL Orthope dics) [facility]SL Orthopedi cs) OUTPATIENT [id number] r shoulde r problem s f/u AVANI MCCURDY 11/23 Released w/o Limitations [facility](LSL Orthope dics) [facility] Element B-1) OUTPATIENT [id number] F/U FOR BREATHI NG PROBLEM S LUCIEN BUENO 12/16 Released w/o Limitations [facility] Element B-1) [facility](LSL Pulmonary Disease) OUTPATIENT [id number] INITIAL APPT difficu lty breathi ng (dyspne a) CHANA VALLEJO 01/10 Released w/o Limitations [facility](LSL Pulmona ry Disease ) [facility](LSL Pulmonary Disease) OUTPATIENT [id number] INITIAL APPT difficu lty breathi ng (dyspne a) CHANA VALLEJO 01/10 Released w/o Limitations [facility](LSL Pulmona ry Disease ) [facility](LSL Orthopedi cs) TELE CONSULT [id number] AVANI MCCURDY 02/16 [facility](LSL Orthope dics) [facility] Orthopedi cs) OUTPATIENT [id number] PAULINO LUO 04/26 Released with Work/Duty Limitations [facility](LSL Orthope dics) [facility](RS[facility] Physical Therapy) OUTPATIENT [id number] See above TARA RICE 05/03 Released w/o Limitations [facility](RSN Physica l Therapy ) [facility](LSL Orthopedi cs) OUTPATIENT [id number] PAULINO Osman 05/11 Released with Work/Duty Limitations [facility](LSL Orthope dics) [facility](RS[facility] Physical Therapy) OUTPATIENT [id number] TARA RICE 05/16 Released w/o Limitations [facility](RSN Physica l Therapy ) [facility] Element B-1) OUTPATIENT [id number] RETIREM ENT PHYSICA L LUCIEN BUENO 05/30 Released w/o Limitations [facility] Element B-1) [facility](LSL Orthopedi cs) OUTPATIENT [id number] f/u shoulde r surgery AVANI MCCURDY 06/02 Released w/o Limitations [facility](LSL Orthope dics) [facility](RS[facility] Optometry ) OUTPATIENT [id number] routine eye exam BUCK SERNA 06/29 Released w/o Limitations [facility](RSN Optomet ry) [facility](LSL Gastroent erology) OUTPATIENT [id number] Fp saw Dr. 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 THALIA GORMAN 07/06 Released w/o Limitations [facility](LSL Audiolo gy, Bldg 3766) [facility] Audiology , Bldg 3766) OUTPATIENT [id number] PER THALIA MCDANIELS 07/07 Released w/o Limitations [facility](LSL Audiolo gy, Bldg 3766) [facility] Element B-1) TELE CONSULT [id number] TELMA MCKEON 09/02 [facility] Element B-1) [facility] Element B-1) OUTPATIENT [id number] sore throat LOU REBOLLAR Severo 09/05 Released w/o Limitations [facility] Element B-1) [facility] Element B-1) OUTPATIENT [id number] seperat ion physica l/lung discomf LUCIEN Vazquez 09/13 Released w/o Limitations [facility] Element B-1) [facility] Audiology , Bldg 3766) OUTPATIENT [id number] HAE THALIA GORMAN 09/20 Released w/o Limitations [facility](LSL Audiolo gy, Bldg 3766) [facility] Physical Exam) OUTPATIENT [id number] (5) [facility] exam TRINITY GOMES 10/19 Released w/o Limitations [facility] Physica l Exam) [facility] Audiology , Bldg 3766) OUTPATIENT [id number] Hearing loss THALIA GORMAN 10/20 Released w/o Limitations [facility](LSL Audiolo gy, Bldg 3766) [facility] Physical Therapy) OUTPATIENT [id number] ROM Rt shoulde r TARA RICE 10/23 Released w/o Limitations [facility](RSN Physica l Therapy ) [facility](LSL Orthopedi cs) OUTPATIENT [id number] f/u right shoulde r AVANI Sams 11/14 Released w/o Limitations [facility](LSL Orthope dics) [facility] Physical Therapy) OUTPATIENT [id number] post op clinic STEVENSON QUIROZ 11/14 Released w/o Limitations [facility](LSL Physica l Therapy ) [facility] ENT Clinic) OUTPATIENT [id number] ELY THRASHER 11/17 Released w/o Limitations [facility]) [facility]) TELE CONSULT [id number] MRI results ELY THRASHER 12/05 [facility]) [facility] Disenroll ment) TELE CONSULT [id number] pt request refills for levitra (varden afil 5mg). PABLOLUCIEN WEEKS 06/19 [facility](RSN Disenro llment) [facility] Family Practice) OUTPATIENT [id number] MED RE-FILL JOEL WAN 10/01 Released w/o Limitations [facility] Family Practic e) [facility] Family Practice) TELE CONSULT [id number] The patient needs new referra l and questio ns abour blood pressur e med (dr Kramer) OBIAARON U 03/23 [facility] Family Practic e) [facility] Family Practice) TELE CONSULT [id number] Patient is listed as a no show for an appt in the WERNER IZAGUIRRE 04/08 [facility] Family Practic e) [facility] Family Practice) OUTPATIENT [id number] f/u blood work CHAZ APARICIO 04/13 Released w/o Limitations [facility] Family Practic e) [facility] Family Practice) TELE CONSULT [id number] Med refill Metopro lol 25 mg 2x daily, Hctz 25mg 1xdaily , Lisinop ril 40mg 1xday CHAZ APARICIO 06/23 [facility] Family Practic e) [facility] General Surgery) OUTPATIENT [id number] visit for: screeni ng exam LILY BARGER 07/07 Released w/o Limitations [facility] General Surgery ) [facility] General Surgery) OUTPATIENT [id number] f/u colo, Jul LILY BARGER 08/25 Released w/o Limitations [facility] General Surgery ) [facility] Family Practice) OUTPATIENT [id number] pain on left shoulde r ROSSANA WILLARD 08/25 Released w/o Limitations [facility] Family Practic e) [facility] Orthopedi c) OUTPATIENT [id number] Shoulde r joint pain CRISTIANO NEWSOME 10/05 Released w/o Limitations [facility] Orthope dic) [facility] Orthopedi c) OUTPATIENT [id number] F/U Left Shoulde r MRI Results CRISTIANO NEWSOME 12/03 Released w/o Limitations [facility] Orthope dic) [facility] Orthopedi cs) OUTPATIENT [id number] Rotator cuff arthrop athy seconda ry to ACJ hypertr ophy and impinge ment PRESLEY URIBE 02/17 Released with Work/Duty Limitations [facility] Orthope dics) [facility] Audiology Clinic) OUTPATIENT [id number] HAE-AID / NEEDS REPAIR/ / GLORIA FLETCHER 07/01 Released w/o Limitations [facility] Audiolo gy Clinic) [facility] TELE CONSULT [id number] Pt. request medicat ion refill. Dr Willard. Tel:[phone] 27. LUCAS BELLAMY 08/28 [facility] Family Practic e) [facility]) OUTPATIENT [id number] blood pressur e check and Rx renewal , [id number] ROSSANA WILLARD 09/29 Released w/o Limitations [facility] Family Practic e) [facility]) OUTPATIENT [id number] annual physica l;[id number] WILLIE MARQUIS 04/16 Released w/o Limitations [facility] Family Practic e) [facility] Int Med) TELE CONSULT [id number] Notes Entered by: HUNTER SPENCER 05 Dec 2012 1434 ------- ------- ------- ------- -- Pt of Hilario, eric is needing refills on his blood pressur e medicin e. ILIANA BURKS 12/05 [facility] OUTPATIENT [id number] initial appt/me et with pcm RUDI ISAAC 01/09 Released w/o Limitations [facility] Internal Medicine) TELE CONSULT [id number] Notes Entered by: RUDI ISAAC 10 Jan 2013 2316 ------- ------- ------- ------- -- lab GARY QUESADA 01/10 [facility] Internal Medicine[facility] TELE CONSULT [id number] Notes Entered by: RUDI ISAAC 01 Feb 2013 1635 ------- ------- ------- ------- -- Lab results GARY QUESADA 02/01 [facility] Interna l Medicin e) [facility] Internal Medicine) TELE CONSULT [id number] Notes Entered by: RUDI ISAAC 04 Feb 2013 1705 ------- ------- ------- ------- -- Abnorma l labs RUDI ISAAC 02/04 [facility] Intern[facility] Medicin [facility]) [facility] TELE CONSULT [id number] Notes Entered by: GARY QUESADA 07 Mar 2013 0928 ------- ------- ------- ------- -- Lab results ILIANA BURKS 03/07 [facility] Int Med) [facility] Int Med) TELE CONSULT [id number] Notes Entered by: KAITLIN REDDING 27 Aug 2013 0753 ------- ------- ------- ------- -- Pt of dr isaac has right eye irritat ion w/numbn ess in the lips WINSTON ROBBINS 08/27 [facility] Int Med) [facility] Int Med) OUTPATIENT [id number] [place] right eye, numbnes s in upper left lip, balance issues. Per Ania. DAERK VASQUEZ 08/28 Released w/o Limitations [facility] Int Med) [facility] Ophthalmo logy) OUTPATIENT [id number] dizzine ss [id number] MIGUELITO SPRING 08/30 Released w/o Limitations [facility](LSL Ophthal mology) [facility] L TBI Rehab PT/OT/PM& R) OUTPATIENT [id number] tbi initial eval NOLAN ROSSI*INAC T Y 09/10 Released w/o Limitations [facility](ZZZ LSL TBI Rehab PT/OT/P M&R) [facility](LSL Emergency Room) OUTPATIENT [id number] Notes Entered by: AKI LLOYD 13 Sep 2013 1828 ------- ------- ------- ------- -- 62 y/o M, facial numbnes s R KAMRON GONZALEZ V 09/13 Released w/o Limitations [facility](LSL Emergen cy Room) [facility](AMH I02A Int Med) TELE CONSULT [id number] Notes Entered by: AYO OCONNOR 16 Sep 2013 0654 ------- ------- ------- ------- -- ER visit- MELISSA Ingram 09/16 [facility](L[facility] Optometry ) OUTPATIENT [id number] TBI patient TIM SCHAEFER 09/30 Released w/o Limitations [facility](ZZZLS L TBI Rehab PT/OT/PM& R) OUTPATIENT [id number] TBI FOLLOW UP NOLAN ROSSI*INAHunter T Y 10/29 Released w/o Limitations [facility] TBI Rehab PT/OT/P M&R) [facility] TBI Rehab PT/OT/PM& R) OUTPATIENT [id number] TBI FOLLOW UP NOLAN ROSSI*INAHunter T Y 11/12 Released w/o Limitations [facility](ZZZ LSL TBI Rehab PT/OT/P M&R) [facility](ZZZLS L TBI Rehab PT/OT/PM& R) OUTPATIENT [id number] TBI FOLLOW UP NOLAN ROSSI*INAHunter T Y 11/14 Released w/o Limitations [facility] TBI Rehab PT/OT/P M&R) [facility](ZZZLS L TBI Rehab PT/OT/PM& R) OUTPATIENT [id number] TBI FRANCES ROSSIIA*INAHunter T Y 11/19 Released w/o Limitations [facility](ZZZ LSL TBI Rehab PT/OT/P M&R) [facility](ZZZLS L TBI Rehab PT/OT/PM& R) OUTPATIENT [id number] TBI FOLLOW UP FRANCES ROSSIIA*INAHunter T Y 11/21 Released w/o Limitations [facility](ZZZ LSL TBI Rehab PT/OT/P M&R) [facility] L TBI Rehab PT/OT/PM& R) OUTPATIENT [id number] TBI FOLLOW UP NOLAN ROSSI*KAITY T Y 11/26 [facility]ased w/o Limitations [facility] [facility] Rehab PT/OT/P M&R) [facility] TBI Rehab PT/OT/PM& R) OUTPATIENT [id number] TBI FOLLOW UP FRANCES ROSSIIA*INAHunter T Y 11/28 Released w/o Limitations [facility] TBI Rehab PT/OT/P M&R) [facility] TBI Rehab PT/OT/PM& R) OUTPATIENT [id number] TBI FOLLOW UP NOLAN ROSSI*INAHunter T Y 12/24 Released w/o Limitations [facility] TBI Rehab PT/OT/P M&R) [facility] TBI Rehab PT/OT/PM& R) OUTPATIENT [id number] TBI FOLLOW UP NOLAN ROSSI*KAITY T Y 12/26 Released w/o Limitations [facility] TBI Rehab PT/OT/P M&R) [facility] I02A Int Med) OUTPATIENT [id number] f/up for dizzyne ss face DAREK Chin 12/26 Released w/o Limitations [facility] I02A Int Med) [facility] TBI Rehab PT/OT/PM& R) OUTPATIENT [id number] TBI FOLLOW UP NOLAN ROSSI*INAHunter T Y 01/01 Released w/o Limitations [facility] TBI Rehab PT/OT/P M&R) [facility] TBI Rehab PT/OT/PM& R) OUTPATIENT [id number] TBI FOLLOW UP JANIA ROSSIINAC T Y 01/13 Released w/o Limitations [facility] TBI Rehab PT/OT/P M&R) [facility] TBI Rehab PT/OT/PM& R) OUTPATIENT [id number] TBI FOLLOW UP FRANCES ROSSIIA*INAC T Y 01/14 Released w/o Limitations [facility] TBI Rehab PT/OT/P M&R) [facility] TBI Rehab PT/OT/PM& R) OUTPATIENT [id number] TBI FOLLOW UP FRANCES ROSSIIA*INAC T Y 01/21 Released w/o Limitations [facility] TBI Rehab PT/OT/P M&R) [facility](L Neurology ) OUTPATIENT [id number] Facial numbnes s LOU HUYNH 01/21 [facility] Limitations [facility] TBI Rehab PT/OT/PM& R) OUTPATIENT [id number] TBI FOLLOW UP NOLAN ROSSI*INAHunter T Y 01/23 [facility] Limitations [facility]/OT/P M&R) [facility](L Neurology ) TELE CONSULT [id number] Notes Entered by: Melo MATHUR 13 Feb 2014 1024 ------- ------- ------- ------- -- Reactio n to Medicat ion LOU HUYNH 02/13 [facility] Neurolo gy) [facility] Audiology , Bldg 0226) OUTPATIENT [id number] CUBITAL TUNNEL SYNDROM E LEFT AUDIOGR AM ONLY - VNG OUT OF ORDER RHINA SHAFER 02/18 Released w/o Limitations [facility](LSL Audiolo gy, Bldg 3766) [facility] Neurology ) OUTPATIENT [id number] f/u LOU HUYNH 02/19 [facility] w/o Limitations [facility] Neurolo gy) [facility] Audiology , [facility] 3766) OUTPATIENT [id number] VNG GLORIA FLETCHER 02/27 [facility]ased w/o Limitations [facility] Audiolo gy, dg 3766) [facility] Occupatio nal Therapy) OUTPATIENT [id number] CUBITAL TUNNEL SYNDROM E LEFT/ [id number] RUTH BHAT 03/05 [facility]ased w/o Limitations [facility] Occupat ional Therapy ) [facility] Int [facility]) TELE CONSULT [id number] Notes Entered by: PATRICIA PIZARRO 17 Mar 2014 0956 ------- ------- ------- ------- -- Med refill [facility] WATT 03[facility]17 [facility] Neurology ) TELE CONSULT [id number] Notes Entered by: Jayashree BERNAL 17 Mar 2014 1343 ------- ------- ------- ------- -- reg. medicat iom/miko e effects possibl y/ having headach es. LOU HUYNH 03/17 [facility] Neurolo gy) [facility] ENT Clinic) OUTPATIENT [id number] VERTIGO DORI CHILD 04/01 [facility]ased w/o Limitations [facility]) [facility] Physical Medicine) OUTPATIENT [id number] CUBITAL TUNNEL SYNDROM E LEFT WILLIAM TSE 04/01 [facility] Limitations [facility] Physica l Medicin e) [facility] Occupatio nal Therapy) OUTPATIENT [id number] RUTH BHAT 04/02 Released w/o Limitations [facility](LSL Occupat ional Therapy ) [facility](LSL Neurology ) TELE CONSULT [id number] LOU HUYNH 04/03 [facility](LSL Neurolo gy) [facility](LSL Neurology ) OUTPATIENT [id number] F/u LOU HUYNH 04/08 Released w/o Limitations [facility](LSL Neurolo gy) [facility](LSL Emergency Room) OUTPATIENT [id number] KAMRON GONZALEZ V 04/12 Released w/o Limitations [facility](LSL Emergen cy Room) [facility](LSL Neurology ) TELE CONSULT [id number] Notes Entered by: Radha CONSTANTINO 18 Apr 2014 0954 ------- ------- ------- ------- -- Pt would like to update you on his conditi on . LOU HUYNH 04/18 [facility] Neurolo gy) [facility] I02A Int Med) OUTPATIENT [id number] follow up referra /493- 4492/01 [id number] YASIRALECIA CastanonSTACIA Ross 04/29 Released w/o Limitations [facility] I02A Int Med) [facility](LSL Orthopedi cs) OUTPATIENT [id number] CUBITAL TUNNEL SYNDROM E LEFT CRISTAL GATES Yas 05/12 Released with Work/Duty Limitations [facility](LSL Orthope dics) [facility] I02A Int Med) TELE CONSULT [id number] Notes Entered by: Gareth BORJA 14 Jul 2014 1354 ------- ------- ------- ------- -- test result ILIANA BURKS 07/14 [facility]A Int Med) [facility]A Int Med) OUTPATIENT [id number] follow up choleli thiasis and US TOD COOLEY Y 07/16 Released w/o Limitations [facility] I[facility]A Int Med) [facility] I[facility]A Int Med) TELE CONSULT [id number] Notes Entered by: WYATT KEVIN 07 Aug 2014 0911 ------- ------- ------- ------- -- Dr. Cooley: lab results /tracki ng ILIANA BURKS 08/07 [facility] I[facility]A Int Med) [facility] I[facility]A Int Med) TELE CONSULT [id number] Notes Entered by: WYATT KEVIN 11 Aug 2014 1115 ------- ------- ------- ------- -- Dr. Cooley: TMJ and lab ILIANA BURKS 08/11 [facility] I[facility]A Int Med) [facility] I[facility]A Int Med) OUTPATIENT [id number] follow up for TMJ TOD COOLEY 09/17 Released w/o Limitations [facility] I02A Int Med) [facility] I02A Int Med) TELE CONSULT [id number] Notes Entered by: KAITLIN REDDING 29 Sep 2014 1202 ------- ------- ------- ------- -- pt has been diagnos ed with gall stones acc to the [facility] req by ILIANA Mckeon 09/29 [facility] I02A Int Med) [facility](L[facility] ENT Clinic) OUTPATIENT [id number] DORI BENSON 10/10 Released w/o Limitations [facility](L[facility] ENT Clinic) [facility] I02A Int Med) TELE CONSULT [id number] Notes Entered by: KAITLIN REDDING 13 Oct 2014 1312 ------- ------- ------- ------- -- pt of dr cooley needs meds. STEFANI WATT 10/13 [facility] I[facility]A Int Med) [facility] I[facility]A Int Med) OUTPATIENT [id number] f/up for dizzyne ss TOD COOLEY 10/28 Released w/o Limitations [facility] I02A Int Med) [facility] I02A Int Med) TELE CONSULT [id number] Notes Entered by: ZACHARIAH BELL 29 Oct 2014 1323 ------- ------- ------- ------- -- Network Results - Sleep Disorde rs - Jul 27 TOD COOLEY 10/29 [facility] I[facility]A Int Med) [facility] I02A Int Med) TELE CONSULT [id number] Notes Entered by: Yas JONES 05 Jan 2015 1003 ------- ------- ------- ------- -- Patient of Dr. Cooley need refill on medicat ion OSVALDOISWYATT BAHAYA C 01/05 [facility] I[facility]A Int Med) [facility] I02A Int Med) TELE CONSULT [id number] Notes Entered by: Yas JONES 07 Jan 2015 1014 ------- ------- ------- ------- -- Patient of Dr. Cooley need medicat ion STEFANI WATT 01/07 [facility] I02A Int Med) [facility] I[facility]A Int Med) OUTPATIENT [id number] Follow- up/rash in throat TOD COOLEY 01/15 Released w/o Limitations [facility] I02A Int Med) [facility](LSL Neurology ) OUTPATIENT [id number] Dizzine ss LOU HUYNH 01/20 Released w/o Limitations [facility] Neurolo gy) [facility] Optometry ) OUTPATIENT [id number] Notes Entered by: NERI BUSCH 29 Jan 2015 1451 ------- ------- ------- ------- -- GLASSES REPAIR PAUL HUFF 01/29 Released w/o Limitations [facility](L[facility] Optomet ry) [facility] Occupatio nal Therapy) OUTPATIENT [id number] initial eval;pt coming at [facility] 01/29 [facility] Limitations [facility] ) [facility] I02A Int Med) TELE CONSULT [id number] Notes Entered by: DENNIS WATT 30 Jan 2015 1009 ------- ------- ------- ------- -- medicat ions per STEFANI Greenfield 01/30 [facility] I02A Int Med) [facility](LSL Orthopedi cs) OUTPATIENT [id number] f/u ulnar nerv CRISTAL GATES 02/02 Released with Work/Duty Limitations [facility] Orthope dics) [facility] Neurology ) OUTPATIENT [id number] POLYNEU ROPATHY / [id number] ORALIA BAEZ 03/11 Released w/o Limitations [facility] Neurolo gy) [facility](LSL Orthopedi cs) OUTPATIENT [id number] DOS:14O CT15/ L UNT(Has questio ns about the surgery techniq ue) CRISTAL GATES 03/17 Released with Work/Duty Limitations [facility](L Orthope dics) [facility] Neurology ) OUTPATIENT [id number] skin biopsy EVONNE BAEZTracey 03/31 Released w/o Limitations [facility](L[facility] Neurolo gy) [facility] Neurology ) TELE CONSULT [id number] Notes Entered by: TEENA MOSQUEDA 20 Apr 2015 1516 ------- ------- ------- ------- -- PT would like results for Biopsy SASHA ORALIA 04/20 [facility](L Neurolo gy) [facility] Neurology ) TELE CONSULT [id number] Notes Entered by: Jayashree BERNAL 14 May 2015 1412 ------- ------- ------- ------- -- Msg.; reg. results and other things: pat. would like to discuss ORALIA BAEZ 05/14 [facility](L Neurolo gy) [facility] Neurology ) OUTPATIENT [id number] F/U PER ORALIA STYLES 05/19 Released w/o Limitations [facility] Neurolo gy) [facility] Neurology ) TELE CONSULT [id number] Notes Entered by: AGUSTIN TOTH 20 May 2015 1614 ------- ------- ------- ------- -- Pt, was told to call as soon as results of test were done, SYD Scan. 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 ROSALBA NGUYEN 06/16 [facility]ased w/o Limitations [facility]) [facility] Neurology ) OUTPATIENT [id number] F/U [id number] ORALIA BAEZ 06/30 Released w/o Limitations [facility](LSL Neurolo gy) [facility] I02A Int Med) TELE CONSULT [id number] Notes Entered by: KAITLIN REDDING 01 Jul 2015 0845 ------- ------- ------- ------- -- pt of dr cooley needs SHONDA Richardson 07/01 [facility] I02A Int Med) [facility] I02A Int Med) OUTPATIENT [id number] pt request nic sorenson; prostat e check TOD COOLEY 07/10 Released w/o Limitations [facility] I02A Int Med) [facility](L[facility] Neurology ) OUTPATIENT [id number] F/U PER SASHA SASHA 07/21 Released w/o Limitations [facility](L[facility] Neurolo gy) [facility] I02A Int Med) OUTPATIENT [id number] TOD Sheehan 08/16 Released w/o Limitations [facility] I02A Int Med) [facility](L[facility] Neurology ) TELE CONSULT [id number] Notes Entered by: Familia SOLIZ 31 Aug 2015 1043 ------- ------- ------- ------- -- Pt wants to discuss adjusti ng dosage of medicat ion: Pramipe xole/.2 5mg/4x daily. BAEZ, EVONNE08/30 [facility] Neurolo gy) [facility] Urology) OUTPATIENT [id number] Enlarge d prostat e with lower urinary tract symptom BENSON Franklin 09/01 Released w/o Limitations [facility] Urology ) [facility] Neurology ) TELE CONSULT [id number] Notes Entered by: Familia SOLIZ N 07 Sep 2015 0911 ------- ------- ------- ------- -- Pt request s refill of medicat ion Pramipe xol/.25 mg/4 per day/ [facility] pharmac y. ORALIA BAEZ 09/06 [facility] Neurolo gy) [facility] Neurology ) TELE CONSULT [id number] Notes Entered by: Familia SOLIZ N 18 Sep 2015 0931 ------- ------- ------- ------- -- Pt was told to call to discuss increas ing medicat ion if no side effects . SASHA EVONNETracey 09/17 [facility] Neurolo gy) [facility](LSL Orthopedi cs) OUTPATIENT [id number] Pain in right shoulde r // [id number] LILY RAE 09/24 Released w/o Limitations [facility](LSL Orthope dics) [facility](L[facility] Optometry ) OUTPATIENT [id number] Annual eye exam/ wears glasses //[id number] ANABELLA TOLLIVER 09/24 Released w/o Limitations [facility](LSL Optomet ry) [facility](LSL Cardiolog y) OUTPATIENT [id number] ECHO/GX T @ 0900 /SANCHEZ Russo [facility] 09/29 Released w/o Limitations [facility](LSL Cardiol ogy) [facility](LSL Cardiolog y) OUTPATIENT [id number] GXT/ECH O @ 0800 /dizzSANCHEZ Woodard [facility] 09/29 Released w/o Limitations [facility](LSL Cardiol ogy) [facility](LSL Cardiolog y) OUTPATIENT [id number] HOLTER HOOKED UP ON [id number] /GERA Carbajal 09/30 Released w/o Limitations [facility](LSL Cardiol ogy) [facility](L[facility] Neurology ) OUTPATIENT [id number] F/U [id number] BAEZORALIA 10/15 Released w/o Limitations [facility](LSL Neurolo gy) [facility](L[facility] Neurology ) TELE CONSULT [id number] Notes Entered by: Familia SOLIZ 30 Nov 2015 1037 ------- ------- ------- ------- -- Pt of Dr. Baez. Request ing refill for Pramipe xole/.2 5mg/6 per day/LRM LOU Conley 11/29 [facility] Neurolo gy) [facility] Neurology ) TELE CONSULT [id number] Notes Entered by: AGUSTIN TOTH 07 Dec 2015 0937 ------- ------- ------- ------- -- Pt wanted to speak to provide r in regards to recievi ng more meds for state side BAEZORALIA FORBES 12/06 [facility](LSL Neurolo gy) [facility](AMH I02A Int Med) TELE CONSULT [id number] Notes Entered by: KAITLIN REDDING 01 Jan 2016 1505 ------- ------- ------- ------- -- pt of dr cooley needs meds SHONDA BEAVERS 12/31 [facility] I02A Int Med) [facility](LSL Neurology ) OUTPATIENT [id number] ftr ORALIA BAEZ 03/10 Released w/o Limitations [facility](LSL Neurolo gy) [facility] I02A Int Med) OUTPATIENT [id number] Both ankles swollen TOD COOLEY 04/18 Released w/o Limitations [facility] I02A Int Med) [facility] I02A Int Med) OUTPATIENT [id number] Notes Entered by: FADIA MEJIAS L 20 Apr 2016 1149 ------- ------- ------- ------- -- BP check TIM CRANE 04/20 Released w/o Limitations [facility] I02A Int Med) [facility] I02A Int Med) OUTPATIENT [id number] Notes Entered by: KAITLIN REDDING 21 Apr 2016 1054 ------- ------- ------- ------- -- BP CHECK/P T OF GWEN HARDY 04/21 Released w/o Limitations [facility] I02A Int Med) [facility] Nutrition Care) OUTPATIENT [id number] Edema, unspeci GINA Mario 05/12 [facility] Limitations [facility] Nutriti on Care) [facility] Sleep Clinic) OUTPATIENT [id number] spec pt will bring CPAP DONNIE YUNG 05/13 [facility]ased w/o Limitations [facility] Sleep Clinic) [facility](AMH I02A Int Med) TELE CONSULT [id number] Notes Entered by: Yas JONES 25 May 2016 1144 ------- ------- ------- ------- -- Patient of Dr. Cooley request ing refill on medicat ion GWEN MANCUSO 05/25 [facility] I02A Int Med) [facility] Sleep Clinic) OUTPATIENT [id number] CPAP titrati on @ 7cm YVROSE LEONARD 06/28 [facility]ased w/o Limitations [facility] Sleep Clinic) [facility] Sleep Clinic) OUTPATIENT [id number] provide r only titrati on interp DONNIE YUNG 07/05 Released w/o Limitations [facility] Sleep Clinic) [facility] Sleep Clinic) TELE CONSULT [id number] Notes Entered by: Kina YUNG 05 Jul 2016 1409 ------- ------- ------- ------- -- CPAP results DONNIE YUNG 07/05 [facility] Sleep Clinic) [facility] TELE CONSULT [id number] Notes Entered by: KHADAR NÚÑEZ 16 Aug 2016 1456 ------- ------- ------- ------- -- medicat ion refill SHONDA BEAVERS 08/16 [facility] I02A Int Med) [facility] Neurology ) TELE CONSULT [id number] Notes Entered by: AGUSTIN TOTH 10 Oct 2016 1334 ------- ------- ------- ------- -- Pt had dereje gauthier ulnar Nerve surgery . LUCAS DELEON 10/10 [facility] Neurolo gy) [facility] TELE CONSULT [id number] Notes Entered by: Yas JONES 12 Oct 2016 1400 ------- ------- ------- ------- -- Patient of Dr. Cooley request ing refill on medicat ion SHERON RUSHING 10/12 [facility] I[facility]A Int Med) OUTPATIENT [id number] acute right flank pain STUBBLEFIE WANDA FRANK 10/21 [facility] w/o Limitations [facility] I02A Int Med) OUTPATIENT [id number] Follow- up DAREK VASQUEZ JENNY 10/31 Released w/o Limitations [facility] I02A Int Med) [facility](L[facility] Neurology ) OUTPATIENT [id number] F/U Appt//0 [id number] ORALIA BAEZ 11/11 Released w/o Limitations [facility](L[facility] Neurolo gy) [facility](LSL Cardiolog y) OUTPATIENT [id number] ECHO/Lo calized edema SANCHEZ NAIR 11/18 Released w/o Limitations [facility](LSL Cardiol ogy) [facility](LS Neurology ) TELE CONSULT [id number] Notes Entered by: RENAY ALBRECHT 02 Feb 2017 1557 ------- ------- ------- ------- -- [place] Polyneu ropathy [place] LUCAS DELEON 02/02 [facility] Neurolo gy) [facility] I02A Int Med) TELE CONSULT [id number] Notes Entered by: MARÍA MOCK 13 Mar 2017 0805 ------- ------- ------- ------- -- Medicat ion refills SHERON RUSHING 03/13 [facility] I[facility]A Int Med) [facility] I[facility]A Int Med) OUTPATIENT [id number] Right Foot Pain//0 [id number] CAMERON COLE 06/21 Released w/o Limitations [facility] I02A Int Med) [facility] Sleep Clinic) TELE CONSULT [id number] CALISTA BRANDT 07/04 [facility] Sleep Clinic) [facility](L Neurology ) OUTPATIENT [id number] F/U APPT/Pr evious Sasha Pt/New Rx//815 [id number] 08 or [id number] FEROZ FERNANDO 07/05 [facility] w/o Limitations [facility] Neurology ) TELE CONSULT [id number] Notes Entered by: Jayashree BERNAL 06 Jul 2017 0845 ------- ------- ------- ------- -- Msg.: reg medicat ion: Sinemet .Liseth blackwood is asking how soon he feels FEROZ FERNANDO 07/06 [facility]) [facility] Neurology ) TELE CONSULT [id number] Notes Entered by: Jayashree BERNAL 26 Jul 2017 0838 ------- ------- ------- ------- -- refill of: Sinomet 100mg Tbl. 1Tbl and half 3 times a day. FEROZ FERNANDO 07/26 [facility] Neurolo gy) [facility] Neurology ) OUTPATIENT [id number] ftr [id number] FEROZ FERNANDO 08/04 Released w/o Limitations [facility] Neurolo gy) [facility] Nutrition Care) OUTPATIENT [id number] GINA PLATA 08/15 Released w/o Limitations [facility](L Nutriti on Care) [facility] TELE CONSULT [id number] Notes Entered by: Familia JACKSON 05 Sep 2017 1116 ------- ------- ------- ------- -- medicat ion refills SHONDA BEAVERS 09/05 [facility] I02A Int Med) [facility] I02A Int Med) TELE CONSULT [id number] Notes Entered by: KAITLIN REDDING 15 Sep 2017 1103 ------- ------- ------- ------- -- pt of dr beckham y needs meds before tdy on monday. 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, request for possibl e transpo sition surgery MARY JO ABDULLAHI 10/12 Released w/o Limitations [facility] LSL Orthope dics Hand) [facility] I02A Int Med) TELE CONSULT [id number] Notes Entered by: NELLY ADKINS 15 Jan 2018 1010 ------- ------- ------- ------- -- medicat ion SHERON RUSHING 01/15 [facility] I[facility]A Int Med) [facility](L[facility] Neurology ) TELE CONSULT [id number] Notes Entered by: EUGENIA BROWN 09 Mar 2018 1424 ------- ------- ------- ------- -- medicat ion FEROZ Dalton 03/09 [facility] Neurolo gy) [facility](LSL Orthopedi cs) OUTPATIENT [id number] discuss Surgery ? MARY JO ABDULLAHI 03/12 Released w/o Limitations [facility] Orthope dics) [facility] I02A Int Med) OUTPATIENT [id number] R foot pain x1 week SHAHIDA CONNELLY 03/13 Released w/o Limitations [facility] I02A Int Med) [facility]) OUTPATIENT [id number] SHELIA LONDON 03/13 Released w/o Limitations [facility]) [facility] I02A Int Med) TELE CONSULT [id number] Notes Entered by: Yas CONNELLY 20 Mar 2018 0858 ------- ------- ------- ------- -- Lab resu;lt s MARICELAERLISHAHIDA R 03/20 [facility] I[facility]A Int Med) [facility](L[facility] Occupatio nal Therapy) OUTPATIENT [id number] Lesion of ulnar nerve, left upper limb LILY YOST 03/27 Released w/o Limitations [facility] Occupat ional Therapy ) [facility] I02A Int Med) OUTPATIENT [id number] 6 HC Lab Results /[id number] MARICEL SHAHIDA Rebollar 04/01 Released w/o Limitations [facility] I02A Int Med) [facility](L Neurology ) OUTPATIENT [id number] 9 f/u// FEROZ FERNANDO 04/12 Released w/o Limitations [facility] Neurolo gy) [facility] I02A Int Med) OUTPATIENT [id number] 1 bp issues pt all of meds. MARICELARELISHAHIDA R 06/15 Released w/o Limitations [facility] I[facility]A Int Med) [facility] Audiology , [facility] 3766) OUTPATIENT [id number] 5 Hearing loss//0 [id number] PEDRO TELLO 06/19 Released w/o Limitations [facility](LSL Audiolo gy, Bldg 3766) [facility] I[facility]A Int Med) OUTPATIENT [id number] 3 medicat ion f/u ARELI CONNELLYENA R 06/22 Released w/o Limitations [facility] I02A Int Med) [facility] I02A Int Med) OUTPATIENT [id number] 9 HC AT [id number] FOLLOW UP ON STEROID SHOT MARICELARELISHAHIDA R 06/25 Released w/o Limitations [facility] I02A Int Med) [facility](L [facility]) OUTPATIENT [id number] 7 Pain in left foot DELVIS DOAN 07/03 Released w/o Limitations [facility]) [facility] I02A Int Med) OUTPATIENT [id number] hard[address] pain in left foot SHAHIDA CONNELLY 08/06 Released w/o Limitations [facility] I02A Int Med) [facility] I02A Int Med) TELE CONSULT [id number] Notes Entered by: PATRICIA HERNANDEZ 09 Aug 2018 09 ------- ------- ------- ------- -- PT concern ed about plantar fasciit is on left foot. RUSHINGSHERON Vincent 08/09 [facility] I02A Int Med) [facility] I02A Int Med) OUTPATIENT [id number] Left foot pain concern SHAHIDA CONNELLY 08/14 Released w/o Limitations [facility] I02A Int Med) [facility] I02A Int Med) OUTPATIENT [id number] XRAY result ELY DELACRUZ 08/20 Released w/o Limitations [facility] I02A Int Med) [facility] Emergency Room) OUTPATIENT [id number] Notes Entered by: SALINA SOLOMON 01 Sep 2018 09 ------- ------- ------- ------- -- 67y/o M Left foot pain CARLOS SAENZ 09/01 Released w/o Limitations [facility] Emergen cy Room) [facility] I02A Int Med) TELE CONSULT [id number] Notes Entered by: WILLIAM COELHO 03 Sep 2018 1554 ------- ------- ------- ------- -- TRANSIT ION OF CARE: ED FU PCM DR CONNELLY ED 01 SEP 2018 KATELYNNMARY JO Servin 09/03 [facility] I02A Int Med) [facility] Neurology ) TELE CONSULT [id number] Notes Entered by: HUE BUSTAMANTE 16 Nov 2018 1613 ------- ------- ------- ------- -- pt said he is not feeling well FEROZ FERNANDO 11/16 [facility]) [facility] F01A Team A) OUTPATIENT [id number] 9 F/U/ appt./l eft leg pain//0 [id number] LUNA WILLETT 11/29 Released w/o Limitations [facility] F01A Team A) [facility] ) OUTPATIENT [id number] 5 follow up FEROZ FERNANDO 12/05 Released w/o Limitations [facility]) [facility] ) TELE CONSULT [id number] 6 Notes Entered by: HUE BUSTAMANTE 07 Jan 2019 0735 ------- ------- ------- ------- -- dr anna barton pt called stated that he is having trouble with his ngozi ons med FEROZ FERNANDO 01/07 [facility] ) TELE CONSULT [id number] 2 Notes Entered by: GIOVANNA DONALD 04 Feb 2019 0835 ------- ------- ------- ------- -- Levodop a is not working for the PT. FEROZ FERNANDO 02/04 [facility]) [facility] ) TELE CONSULT [id number] 1 Notes Entered by: DONTAE ZHOU 13 Feb 20192020 ------- ------- ------- ------- -- FEROZ Veras 02/13 [facility]) [facility] Orthoped[facility]) OUTPATIENT [id number] left elbow pain SHANNON CHANDRA 03/05 Released w/o Limitations [facility]) [facility]) OUTPATIENT [id number] 6 left elbow ular nerve per TONYA Naranjo 04/04 Released w/o Limitations [facility]) [facility]) OUTPATIENT [id number] 0 pop dos 29 MAR TONYA GILES 04/24 Released w/o Limitations [facility]) [facility] Occupatio nal Therapy) OUTPATIENT [id number] 9 Elbow pad TIM REED 04/24 Released w/o Limitations [facility] Occupat ional Therapy ) [facility]) OUTPATIENT [id number] 2 Notes Entered by: LOU BURNS 30 Apr 2019 1728 ------- ------- ------- ------- -- Flu shot ELY PARDO 04/30 Released w/o Limitations [facility]) [facility] ) OUTPATIENT [id number] RESEARCH ASSOCIATE PROFESSOR LICENCE RENEWAL //SOFÍA Sorenson///302 [phone] JAVIER HAMLIN 05/20 Released w/o Limitations [facility]) [facility]) OUTPATIENT [id number] 5 pop f/u TONYA GILES 05/21 Released w/o Limitations [facility]) [facility] Neurology ) TELE CONSULT [id number] 2 Notes Entered by: GRETCHEN JUAREZ 27 May 2019 1306 ------- ------- ------- ------- -- pt states provide r wanted an update on if patient is FEROZ FERNANDO 05[facility]27 [facility] TELE CONSULT [id number] 1 Notes Entered by: SA IZA HERNÁNDEZ 28 Jun 2019 1009 ------- ------- ------- ------- -- meds refill SHAHIDA CONNELLY 06/28 [facility] I02A Int Med) OUTPATIENT [id number] Annual visit/l abs SHAHIDA CONNELLY R 06/28 Released w/o Limitations [facility]) OUTPATIENT [id number] hc/0152 [id number] 8/L abd pain/BM w/ blood/3 days KATHY FARMER 12/18 Released w/o Limitations [facility] [place] [facility] Outpatient Encounter [id number] 05/22 [facility] [place] [facility] Outpatient Encounter [id number] 05/23 [place] [facility] [place] [facility] Outpatient Encounter [id number] 05/[address] 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 Outpatient Encounter [id number] 06/[address] [facility] Outpatient Encounter [id number] Vincent JACOB 06/[address] 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 OFFICE O/P EST HI 40 MIN [id number] Diagnos is: ICD-10- CM G24.8 Other dystoni a RAVIN MAI E 06/19 [facility] Outpatient Encounter [id number] 06/[address] 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, with fluctua tions RAVIN MAI E 09/17 [facility] SELF CARE MNGMENT TRAINING [id number] Diagnos is: ICD-10- CM R26.89 Other abnorma lities of gait and mobilit y MARY JO LOGAN 10/04 [facility] OFFICE O/P EST MOD 30 MIN [id number] [id number] Diagnos is: ICD-10- CM M19.011 Primary osteoar thritis , right shoulde r Nancy DAS 10/08 [facility] Outpatient Encounter [id number] 10/15 [facility] IMG RTA DETCJ/MNTR DS STAFF [id number] Diagnos is: ICD-10- CM Z01.00 Encount er for exam of eyes and vision w/o abnorma l finding s Gareth ALEXANDER E 10/22 [facility] Outpatient Encounter [id number] Diagnos is: ICD-10- CM Z01.01 Encount er for exam of eyes and vision w abnorma l finding s VANITA MIRAMONTES 10/22 [facility] OFFICE O/P EST MOD 30 MIN [id number] [id number] Diagnos is: ICD-10- CM 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, with fluctua tions WARREN WOO T Gareth 10/25 [facility] [place] [facility] SPEECH/HEA RING THERAPY [id number] Diagnos is: ICD-10- CM R47.1 Dysarth chet and anarthr ia [facility] ISTINE A 11/26 [facility] OFF[facility] O/P EST HI 40 MIN [id number] Diagnos is: ICD-10- CM 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, with fluctua tions PASQUALE PARRY IE F 11/27 [facility] NJX PLATELET PLASMA [id number] Diagnos is: ICD-10- CM M25.511 Pain in right foreigne MIHAELA Ha M 12/06 [facility] Outpatient Encounter [id number] 12/06 [facility] Outpatient Encounter [id number] 12/26 [facility] SELF CARE MNGMENT TRAINING [id number] [id number] Diagnos is: ICD-10- CM R26.89 Other abnorma lities of gait and mobilit y MARY JO LOGAN 02/05 [facility] SPEECH/HEA RING THERAPY [id number] Diagnos is: ICD-10- CM R49.0 Dysphon ia [facility] ISTINE A 02/19 [facility] OFFICE O/P EST HI 40 MIN [id number] [id number] Diagnos is: ICD-10- CM 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 TX SP LANG VOICE COMM INDIV [id number] [id number] Diagnos is: ICD-10- CM R47.1 Dysarth chet and anarthr ia BILLINGSLEY,CHR ISTINE A 08/[address] 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, with fluctua tions PASQUALE PARRY F 09/19 [facility] SELF CARE MNGMENT TRAINING [id number] Diagnos is: ICD-10- CM R26.89 Other abnorma lities of gait and mobilit y DOREENMARY JOS 10/07 [facility] Outpatient Encounter [id number] PROSPER FEROZ Vincent 10/11 [facility] Outpatient Encounter [id number] 10/15 [facility] Outpatient Encounter [id number] 10/15 [facility] OFFICE O/P EST MOD 30 MIN [id number] Diagnos is: ICD-10- CM M54.50 Low back pain, unspeci fiMELITON Evans H 10/15 [facility] FUNDUS PHOTOGRAPH Y W/I&R [id number] Diagnos is: ICD-10- CM Z01.01 Encount er for exam of eyes and vision w abnorma l finding s GISELLE JENKINS 10/18 [facility] Outpatient Encounter [id number] YOSEPH TALAMANTES 10/21 [facility] OFFICE O/P EST HI 40 MIN [id number] Diagnos is: ICD-10- CM Z01.01 Encount er for exam of eyes and vision w abnorma l finding s KRIS SOLORZANO MD 10/21 [facility] Outpatient Encounter [id number] BASILIA CHUA 10/22 [facility] Procedures Combined list of: 1) Procedures from Department of Veterans Affairs facilities going back up to thelast 18 months, not all OR non-surgical procedures are included; 2) All procedures from the Department of Defense facilities. Procedure Procedure Type Code Date Perfomer Comments Sourc e DETERMINATION OF REFRACTIVE STATE 05/20 DoD IMMUNIZATION ADMINISTRATION (INCLUDES PERCUTANEOUS, INTRADERMAL, SUBCUTANEOUS, OR INTRAMUSCULAR INJECTIONS); 1 VACCINE (SINGLE OR COMBINATION VACCINE/TOXOID) 04/30 DoD ORTHOTIC(S) MANAGEMENT AND TRAINING (INCLUDING ASSESSMENT AND FITTING WHEN NOT OTHERWISE REPORTED),UPPER EXTREMITY(IES),LOWER EXTREMITY(IES) AND/OR TRUNK,INITIAL ORTHOTIC(S) ENCOUNTER,EACH 15 MINUTES 04/24 DoD POSTOPERATIVE FOLLOW-UP VISIT, NORMALLY INCLUDED IN THE SURGICAL PACKAGE, INDICATE THAT EVALUATION & MANAGEMENT SERVICE WAS PERFORMED DURING A POSTOPERATIVE PERIOD REASON RELATED ORIGINAL PROCEDURE 04/24 [facility] UNLISTED SPECIAL SERVICE, PROCEDURE OR REPORT 04/09 [facility] CASE MANAGEMENT, EACH 15 MINUTES 09/03 DoD WALKING BOOT, PNEUMATIC AND/OR VACUUM, WITH OR WITHOUT JOINTS, WITH OR WITHOUT INTERFACE MATERIAL, PREFABRICATED, [id number] 09/01 DoD TELE ASSESS & MGT SRV PROV QUAL NONPHYS HLTH CARE PRO TO EST PAT,PARENT,GUARD NOT ORIG REL ASSESS & MGT SRV PROV W/IN PREV 7 DAYS NOR LEAD ASSESS & MGT SRV/PX W/IN NXT 24 HR/SOON APT;5-10 MIN MED DIS 08/09 DoD INJECTION, LIDOCAINE HCL FOR INTRAVENOUS INFUSION, 10 MG 08/06 DoD FOOT, ARCH SUPPORT, REMOVABLE, PREMOLDED, LONGITUDINAL, EACH 06/28 DoD COMPREHENSIVE AUDIOMETRY THRESHOLD EVALUATION AND SPEECH RECOGNITION (80528 AND [id number] COMBINED) 06/19 DoD SPLINT, PREFABRICATED, ELBOW 03/27 DoD WRIST HAND ORTHOSIS, WRIST EXTENSION CONTROL COCK-UP, NON MOLDED, PREFABRICATED, [id number] 03/12 DoD TELE ASSESS & MGT SRV PROV QUAL NONPHYS HLTH CARE PRO TO EST PAT,PARENT,GUARD NOT ORIG REL ASSESS & MGT SRV PROV W/IN PREV 7 DAYS NOR LEAD ASSESS & MGT SRV/PX W/IN NXT 24 HR/SOON APT;5-10 MIN MED DIS 01/15 DoD TELE ASSESS & MGT SRV PROV QUAL NONPHYS HLTH CARE PRO TO EST PAT,PARENT,GUARD NOT ORIG REL ASSESS & MGT SRV PROV W/IN PREV 7 DAYS NOR LEAD ASSESS & MGT SRV/PX W/IN NXT 24 HR/SOON APT;5-10 MIN MED DIS 03/13 DoD 3D RENDERING W INTERPRET &REPORTING OF COMPUTED TOMOGR,MAG RES IMG,ULTRASND,OR OTH TOMOGR MODALITY W IMAG POSTPROCESS UNDER CONCURR SUPERVISION;NOT REQ IMAG POSTPROCESS ON AN INDEPENDEN WRKSTATION 11/18 DoD TELE ASSESS & MGT SRV PROV QUAL NONPHYS HLTH CARE PRO TO EST PAT,PARENT,GUARD NOT ORIG REL ASSESS & MGT SRV PROV W/IN PREV 7 DAYS NOR LEAD ASSESS & MGT SRV/PX W/IN NXT 24H/SOON APT; 21-30 MIN MED DIS 10/12 DoD POLYSOMNOGRAPHY;AGE 8 YEARS/OLDER,SLEEP STAGING W 4/MORE ADDITIONAL PARAMETERS OF SLEEP,W INITIATION OF CONTINUOUS POSITIVE AIRWAY PRESSURE THERAPY/BILEVEL VENTILATION,ATTENDED BY A TECHNOLOGIST 07/05 DoD POLYSOMNOGRAPHY;AGE 8 YEARS/OLDER,SLEEP STAGING W 4/MORE ADDITIONAL PARAMETERS OF SLEEP,W INITIATION OF CONTINUOUS POSITIVE AIRWAY PRESSURE THERAPY/BILEVEL VENTILATION,ATTENDED BY A TECHNOLOGIST 06/27 DoD MEDICAL NUTRITION THERAPY; GROUP (2 OR MORE INDIVIDUAL(S)), EACH 30 MINUTES 05/12 DoD BLOOD PRESSURE MEASURED (CKD)(DM) 04/21 DoD BLOOD PRESSURE MEASURED (CKD)(DM) 04/20 DoD LEGAL RECOVERY SPECIALIST ELECTROCARDIOGRAPHIC RECORDING UP TO 48 HOUR,CONT RHYTHM RECORDING & STORAGE;INCLUD RECORDING,SCANNING ANAL W REPORT,REVIEW &INTERPRETATION,A PHYSICIAN/OTHER QUALIFIED HEALTH PRIMARY SUBSTANCE ABUSE COUNSELOR 09/30 DoD CARDIOVASCULAR STRESS TEST USING MAXIMAL OR SUBMAXIMAL TREADMILL OR BICYCLE EXERCISE,CONTINUOUS ELECTROCARDIOGRAPHIC MONITORING,AND/OR PHARMACOLOGICAL STRESS;W SUPERVISION,INTERPRET ATION AND REPORT 09/29 DoD 3D RENDERING W INTERPRET &REPORTING OF COMPUTED TOMOGR,MAG RES IMG,ULTRASND,OR OTH TOMOGR MODALITY W IMAG POSTPROCESS UNDER CONCURR SUPERVISION;NOT REQ IMAG POSTPROCESS ON AN INDEPENDEN WRKSTATION 09/29 [facility] DETERMINATION OF REFRACTIVE STATE 09/24 DoD BIOPSY OF SKIN, SUBCUTANEOUS TISSUE AND/OR MUCOUS MEMBRANE (INCLUDING SIMPLE CLOSURE),UNLESS OTHERWISE LISTED (SEPARATE PROCEDURE); EACH SEPARATE/ADD LESION (LIST SEP IN ADD TO CODE FOR PRIMARY PROC) 03/31 [facility] NERVE CONDUCTION STUDIES; 5-6 STUDIES 03/11 [facility] REPAIR AND REFITTING SPECTACLES; EXCEPT FOR APHAKIA 01/29 [facility] OCCUPATIONAL THERAPY EVALUATION 01/29 [facility] PSYCHIATRIC EVALUATION OF HOSPITAL RECORDS, OTHER PSYCHIATRIC REPORTS, PSYCHOMETRIC AND/OR PROJECTIVE TESTS, AND OTHER ACCUMULATED DATA FOR MEDICALDIAGNOSTIC PURPOSES 08/07 [facility] PSYCHIATRIC DIAGNOSTIC EVALUATION 05/13 [facility] NONINVASIVE EAR OR PULSE OXIMETRY FOR OXYGEN SATURATION; SINGLE DETERMINATION 04/12 [facility] OCCUPATIONAL THERAPY RE-EVALUATION 04/02 [facility] NEEDLE ELECTROMYOGRAPHY,EA EXTREMITY,W RELATED PARASPINAL AREAS,WHEN PERFORMED,DONE W NERVE CONDUCTION,AMPLITUDE &LATENCY/VELOCITY STUDY;LIMITED (LIST SEPARATELY IN ADDITION TO CODE FOR PRIMARY PROC) 04/01 [facility] APPLICATION OF SHORT ARM SPLINT (FOREARM TO HAND); STATIC 03/05 [facility] CALORIC VESTIBULAR TEST, EACH IRRIGATION (BINAURAL, BITHERMAL STIMULATION CONSTITUTES 4 TESTS), WITH RECORDING 02/27 [facility] SPEECH AUDIOMETRY THRESHOLD; WITH SPEECH RECOGNITION 02/18 [facility] APPLICATION OF A MODALITY TO 1 OR MORE AREAS; ELECTRICAL STIMULATION (MANUAL), EACH 15 MINUTES 01/23 [facility] THERAPEUTIC PROCEDURE,1 OR MORE AREAS,EACH 15 MINUTES;NEUROMUSCULAR REEDUCATION OF MOVEMENT,BALANCE,COOR DINATION,KINESTHETIC SENSE,POSTURE,AND/OR PROPRIOCEPTION FOR SITTING AND/OR STANDING ACTIVITIES 01/21 DoD THERAPEUTIC PROCEDURE,1 OR MORE AREAS,EACH 15 MINUTES;NEUROMUSCULAR REEDUCATION OF MOVEMENT,BALANCE,COOR DINATION,KINESTHETIC SENSE,POSTURE,AND/OR PROPRIOCEPTION FOR SITTING AND/OR STANDING ACTIVITIES 01/14 DoD THERAPEUTIC PROCEDURE,1 OR MORE AREAS,EACH 15 MINUTES;NEUROMUSCULAR REEDUCATION OF MOVEMENT,BALANCE,COOR DINATION,KINESTHETIC SENSE,POSTURE,AND/OR PROPRIOCEPTION FOR SITTING AND/OR STANDING ACTIVITIES 01/13 DoD THERAPEUTIC PROCEDURE,1 OR MORE AREAS,EACH 15 MINUTES;NEUROMUSCULAR REEDUCATION OF MOVEMENT,BALANCE,COOR DINATION,KINESTHETIC SENSE,POSTURE,AND/OR PROPRIOCEPTION FOR SITTING AND/OR STANDING ACTIVITIES 01/01 DoD THERAPEUTIC PROCEDURE,1 OR MORE AREAS,EACH 15 MINUTES;NEUROMUSCULAR REEDUCATION OF MOVEMENT,BALANCE,COOR DINATION,KINESTHETIC SENSE,POSTURE,AND/OR PROPRIOCEPTION FOR SITTING AND/OR STANDING ACTIVITIES 12/26 DoD THERAPEUTIC PROCEDURE,1 OR MORE AREAS,EACH 15 MINUTES;NEUROMUSCULAR REEDUCATION OF MOVEMENT,BALANCE,COOR DINATION,KINESTHETIC SENSE,POSTURE,AND/OR PROPRIOCEPTION FOR SITTING AND/OR STANDING ACTIVITIES 12/24 DoD THERAPEUTIC PROCEDURE,1 OR MORE AREAS,EACH 15 MINUTES;NEUROMUSCULAR REEDUCATION OF MOVEMENT,BALANCE,COOR DINATION,KINESTHETIC SENSE,POSTURE,AND/OR PROPRIOCEPTION FOR SITTING AND/OR STANDING ACTIVITIES 11/28 DoD THERAPEUTIC PROCEDURE,1 OR MORE AREAS,EACH 15 MINUTES;NEUROMUSCULAR REEDUCATION OF MOVEMENT,BALANCE,COOR DINATION,KINESTHETIC SENSE,POSTURE,AND/OR PROPRIOCEPTION FOR SITTING AND/OR STANDING ACTIVITIES 11/26 DoD THERAPEUTIC PROCEDURE,1 OR MORE AREAS,EACH 15 MINUTES;NEUROMUSCULAR REEDUCATION OF MOVEMENT,BALANCE,COOR DINATION,KINESTHETIC SENSE,POSTURE,AND/OR PROPRIOCEPTION FOR SITTING AND/OR STANDING ACTIVITIES 11/21 DoD THERAPEUTIC PROCEDURE,1 OR MORE AREAS,EACH 15 MINUTES;NEUROMUSCULAR REEDUCATION OF MOVEMENT,BALANCE,COOR DINATION,KINESTHETIC SENSE,POSTURE,AND/OR PROPRIOCEPTION FOR SITTING AND/OR STANDING ACTIVITIES 11/19 DoD THERAPEUTIC PROCEDURE,1 OR MORE AREAS,EACH 15 MINUTES;NEUROMUSCULAR REEDUCATION OF MOVEMENT,BALANCE,COOR DINATION,KINESTHETIC SENSE,POSTURE,AND/OR PROPRIOCEPTION FOR SITTING AND/OR STANDING ACTIVITIES 11/14 DoD THERAPEUTIC PROCEDURE,1 OR MORE AREAS,EACH 15 MINUTES;NEUROMUSCULAR REEDUCATION OF MOVEMENT,BALANCE,COOR DINATION,KINESTHETIC SENSE,POSTURE,AND/OR PROPRIOCEPTION FOR SITTING AND/OR STANDING ACTIVITIES 11/12 DoD THERAPEUTIC PROCEDURE,1 OR MORE AREAS,EACH 15 MINUTES;NEUROMUSCULAR REEDUCATION OF MOVEMENT,BALANCE,COOR DINATION,KINESTHETIC SENSE,POSTURE,AND/OR PROPRIOCEPTION FOR SITTING AND/OR STANDING ACTIVITIES 10/29 DoD FITTING OF SPECTACLES, EXCEPT FOR APHAKIA; BIFOCAL 09/30 DoD TELE ASSESS & MGT SRV PROV QUAL NONPHYS HLTH CARE PRO TO EST PAT,PARENT,GUARD NOT ORIG REL ASSESS & MGT SRV PROV W/IN PREV 7 DAYS NOR LEAD ASSESS & MGT SRV/PX W/IN NXT 24 HR/SOON APT;5-10 MIN MED DIS 09/16 DoD COMP DYN POSTUROGRPH SENS ORGANIZATION TEST (CDP-SOT),6 CONDITIONS (IE,EYES OPEN,EYES CLOSED,VISUAL SWAY,PLATFORM SWAY,EYES CLOSED PLATFORM SWAY,PLATFORM &VISUAL SWAY),INCLUD INTERPRETATION &REPORT 09/10 DoD OPHTHALMOLOGICAL SERVICES: MEDICAL EXAMINATION AND EVALUATION WITH INITIATION OF DIAGNOSTIC AND TREATMENT PROGRAM; COMPREHENSIVE, NEW PATIENT, 1 OR MORE VISITS 08/30 DoD TELE ASSESS & MGT SRV PROV QUAL NONPHYS HLTH CARE PRO TO EST PAT,PARENT,GUARD NOT ORIG REL ASSESS & MGT SRV PROV W/IN PREV 7 DAYS NOR LEAD ASSESS & MGT SRV/PX W/IN NXT 24 HR/SOON APT;5-10 MIN MED DIS 08/27 DoD TELE ASSESS & MGT SRV PROV QUAL NONPHYS HLTH CARE PRO TO EST PAT,PARENT,GUARD NOT ORIG REL ASSESS & MGT SRV PROV W/IN PREV 7 DAYS NOR LEAD ASSESS & MGT SRV/PX W/IN NXT 24 HR/SOON APT;5-10 MIN MED DIS 02/01 DoD TELE ASSESS & MGT SRV PROV QUAL NONPHYS HLTH CARE PRO TO EST PAT,PARENT,GUARD NOT ORIG REL ASSESS & MGT SRV PROV W/IN PREV 7 DAYS NOR LEAD ASSESS & MGT SRV/PX W/IN NXT 24 HR/SOON APT;5-10 MIN MED DIS 01/10 DoD PURE TONE AUDIOMETRY (THRESHOLD); AIR ONLY 07/01 DoD UNLISTED SPECIAL SERVICE, PROCEDURE OR REPORT 08/09 DoD TELE ASSESS & MGT SRV PROV QUAL NONPHYS HLTH CARE PRO TO EST PAT,PARENT,GUARD NOT ORIG REL ASSESS & MGT SRV PROV W/IN PREV 7 DAYS NOR LEAD ASSESS & MGT SRV/PX W/IN NXT 24 HR/SOON APT;5-10 MIN MED DIS 04/08 DoD TELE ASSESS & MGT SRV PROV QUAL NONPHYS HLTH CARE PRO TO EST PAT,PARENT,GUARD NOT ORIG REL ASSESS & MGT SRV PROV W/IN PREV 7 DAYS NOR LEAD ASSESS & MGT SRV/PX W/IN NXT 24 HR/SOON APT;5-10 MIN MED DIS 03/23 [facility] BINOCULAR MICROSCOPY (SEPARATE DIAGNOSTIC PROCEDURE) 11/17 [facility] PHYSICAL THERAPY RE-EVALUATION 11/14 [facility] PHYSICAL THERAPY EVALUATION 10/23 [facility] ELECTROACOUSTIC EVALUATION FOR HEARING AID; MONAURAL 10/20 [facility] ELECTROACOUSTIC EVALUATION FOR HEARING AID; MONAURAL 09/20 [facility] EAR IMPRESSION, EACH 07/07 [facility] DISTORTION PRODUCT EVOKED OTOACOUS EMISSIONS;LIMITED EVALUATION (TO CONFIRM THE PRESENCE/ABSENCE OF HEARING DISORDER,3-6 FREQUENCIES)/TRANSIEN T EVOKED OTOACOUS EMISSIONS,W INTERPRETATION &REPORT 07/06 [facility] FITTING OF SPECTACLES, EXCEPT FOR APHAKIA; BIFOCAL 06/29 [facility] POSTOPERATIVE FOLLOW-UP VISIT, NORMALLY INCLUDED IN THE SURGICAL PACKAGE, INDICATE THAT EVALUATION & MANAGEMENT SERVICE WAS PERFORMED DURING A POSTOPERATIVE PERIOD REASON RELATED ORIGINAL PROCEDURE 06/02 [facility] THERAPEUTIC ACTIVITIES, DIRECT (ONE-ON-ONE) PATIENT CONTACT (USE OF DYNAMIC ACTIVITIES TO IMPROVE FUNCTIONAL PERFORMANCE), EACH 15 MINUTES 05/16 [facility] RANGE OF MOTION MEASUREMENTS AND REPORT (SEPARATE PROCEDURE); EACH EXTREMITY (EXCLUDING HAND) OR EACH TRUNK SECTION (SPINE) 05/03 [facility] UNLISTED SPECIAL SERVICE, PROCEDURE OR REPORT 05/01 [facility] THORACIC GAS VOLUME 01/10 [facility] ARTHROCENTESIS, ASPIRATION AND/OR INJECTION, MAJOR JOINT OR BURSA (EG, SHOULDER, HIP, KNEE, SUBACROMIAL BURSA); WITHOUT ULTRASOUND GUIDANCE 11/23 [facility] DETERMINATION OF REFRACTIVE STATE 10/24 [facility] CRUTCHES UNDERARM, WOOD, ADJUSTABLE OR FIXED, PAIR, WITH PADS, TIPS AND HANDGRIPS 08/15 [facility] FOOT, ARCH SUPPORT, REMOVABLE, PREMOLDED, METATARSAL, EACH 08/15 [facility] RANGE OF MOTION MEASUREMENTS AND REPORT (SEPARATE PROCEDURE); EACH EXTREMITY (EXCLUDING HAND) OR EACH TRUNK SECTION (SPINE) 07/20 [facility] BRONCHOSPASM PROVOCATION EVALUATION, [place] [address], WITH ADMINISTERED AGENTS (EG, ANTIGEN[S], COLD AIR, METHACHOLINE) 03/04 [facility] NONINVASIVE EAR OR PULSE OXIMETRY FOR OXYGEN SATURATION; SINGLE DETERMINATION 02/16 [facility] UNLISTED SPECIAL SERVICE, PROCEDURE OR REPORT 08/06 [facility] DETERMINATION OF REFRACTIVE STATE 03/08 [facility] ELECTROACOUSTIC EVALUATION FOR HEARING AID; MONAURAL 06/20 [facility] HEARING AID CHECK; MONAURAL 06/13 [facility] SUPP &MATERIAL (EXCEPT SPECTACLE),PROVID,THE PHYS/OTH QUALIFIED HEALTH PRIMARY SUBSTANCE ABUSE COUNSELOR OVER &ABOVE THOSE USUALLY INCLD W THE OFFICE VISIT/OTH SER RENDERED (LIST DRUG,TRAYS,SUPP,OR MATERIAL PROVID) 03/31 [facility] Tympanometry Tympanometry 39446 07/06 THALIA GORMAN [facility] Fitting Bifocals (Not For Aphakia) [facility] Fitting Bifocals (Not For Aphakia) 96702 06/29 [facility] Determination Of Refractive State Determination Of Refractive State 08643 06/29 [facility] Ophthalmological Prior Patient Start [facility] Ophthalmological Prior Patient Start Comprehensive Care 36906 06/29 BUCK SERNA Postoperative Visit, Without Charge Postoperative Visit, Without Charge 78680 06/02 AVANI MCCURDY PT A e ment Kinetic Training PT Assessment Kinetic Training 25567 05/16 TARA RICE added functioanl exer: yel/red theraband for strengthening begin super set program as tolerated, may begin walking forward on theraball on hands. - 10 min [facility] Physical Therapy Mobilization Joint Physical Therapy Mobilization Joint 38647 05/16 TARA RICE Physical Medicine Physical Therapy Re-Evaluation Physical Medicine Physical Therapy Re-Evaluation 16350 05/16 TARA RICE PT A e ment Kinetic Training PT Assessment Kinetic Training 90289 05/03 TARA RICE Instructed in functional exer to improve ROM to include: Codman's, Active assisted ROM with opp hand, elbow ROM and isometric exer . Performed correctly 15 min [facility] Range Of Motion Evaluation Of Extremity Range Of Motion Evaluation Of Extremity 24004 05/03 TARA RICE Pulmonary Function FEV1 % change after bronchodilator Pulmonary Function FEV1 % change after bronchodilator 81003 01/10 CHENG CALDERA Pulmonary Function Tests Flow Volume Loop Pulmonary Function Tests Flow Volume Loop 04915 01/10 CHENG CALDERA Spirometry Post-bronchodil[place] [address] 01/10 CHENG CALDERA Spirometry Pre-bronchodilator Spirometry Pre-bronchodilato r 17740 01/10 CHENG CALDERA [facility] Pulmonary Function TLC (% Predicted Normal) Pulmonary Function TLC (% Predicted Normal) 46071 01/10 CHENG CALDERA [facility] Arthrocentesis Injection Of Subacromial Bursa Arthrocentesis Injection Of Subacromial Bursa 26591 11/23 STEPHANMELLO AVANI L [facility] Ophthalmological New Patient Start Comprehensive Care Ophthalmological New Patient Start Comprehensive Care 43892 10/24 DHEERAJ CELAYA Determination Of Refractive State Determination Of Refractive State 23621 10/24 DHEERAJ CELAYA [facility] Foot, arch support, removable, premolded, metatarsal, each 08/17 DEBORAH HESTER [facility] Physical Therapy Gait Training Physical Therapy Gait Training 74957 08/15 TRINI NOBLE Crutches, underarm, wood, adjustable or fixed, pair, with pads, tips and handgrips 08/15 TIRNI NOBLE Range Of Motion Evaluation Of Extremity Range Of Motion Evaluation Of Extremity 26960 07/20 TARA RICE [facility] Physical Therapy - Unlisted Therapeutic Procedure Physical Therapy - Unlisted Therapeutic Procedure 15261 07/19 TARA RICE Instructed in superset program with antonia gillespieabanbran. Needs to work on posture and mid back exercises. - 10min [facility] Pulmonary Function Tests Flow Volume Loop Pulmonary Function Tests Flow Volume Loop 16077 03/04 MELL ALBARADO [facility] Bronchial Challenge With Methacholine Bronchial Challenge With Methacholine 42284 03/04 MELL ALBARADO [facility] Case Management, each 15 minutes 09/05 MARY JO COELHO [facility] Non-Physician Phone Call To Patient/Provider Brief (5-10min) Non-Physician Phone Call To Patient/Provider Brief (5-10min) 74703 08/09 SHERON RUSHING TCON: 1 unit of service to equal 10 min; time spent including encounter set up, chart research, attempt to reach patient, advising patient of results/medicat ions, answering patient questions, patient education and documentation. [facility] Injection, lidocaine HCl for intravenous infusion, 10 mg 08/06 SHAHIDA CONNELLY 2 cc lidocaine w/o epi 1% used. LOT: [id number] EXP:07/03 [facility] Injection, triamcinolone acetonide, preservative free, 1 mg 08/06 SHAHIDA CONNELLY R LT heel pad palpated, maximum point of pain identified with patient assisting, 5mm away for heel pad dori site for injection placed. The skin overlying the joint was prepped with chloraprep. A 30 gauge needle was used to inject 1ml of 1% lidocaine for wheel and additional 1 cc injected as it was introduced at 45 degree angle towards calcalneus without blood on drawback. Corticosteroid of kenalog 40mg in 1ml then injected along track. The patient tolerated the procedure well. Hemostasis achieved with pressure and bandage placed. Pt was observed to walk around and reported immediate pain relief. Post care instruction provided, RTC if any concern for infection, adverse medicaiton effect, or inability to BFW. LOT: [id number] EXP:04/2019 [facility] Foot, arch support, removable, premolded, longitudinal, each 07/03 DELVIS DOAN Bilateral foot. [facility] Comprehensive Audiometry Comprehensive Audiometry 62474 06/19 PEDRO TELLO Pure tones: R - mild to moderately-constantine re SNHL 2757-3034 Hz L - moderately-constantine re to severe SNHL 4466-2450 Hz Speech Account Management Specialist Thresholds were in good agreement with pure tones R - 20 dBHL L - 20 dBHL Word Recognition Score: R - 100% at 65 dBHL L - 100% at 65 dBHL [facility] Acoustic Immittance Test Acoustic Immittance Test 68580 06/19 PEDRO TELLO Tympanometry: R - Type A, normal pressure, volume and static compliance L - Type A, normal pressure, volume and static compliance Ipsilateral reflexes R - 500, 1000, 2000 Hz present L - 500, 1000, 2000 and 4000 Hz present Contralateral reflexes R - 500, 1000, 2000 Hz present L - CNT due to inability to maintain seal Acoustic Reflex Decay at 500 and 1000 Hz contra R - Negative L - CNT DoD Evoked Otoacoustic Nan ions Comprehensive Evoked Otoacoustic Emissions Comprehensive 04028 06/19 PEDRO TELLO DPOAEs were tested from 500 - 29310 Hz R - present from 1500, 2000 and 25150 Hz L - CNT due to inability to maintain seal DoD Cobra Stylet Med Svc Qual Nonphys Healthcare Prof Estab Patient Internet Med Sv Qual Nonphys Healthcare Prof Estab Patient 14858 04/01 MARICEL SHAHIDABALA Sow Splint, prefabricated, elbow 03/27 LILY YOST Wrist hand orthosis, wrist extension control cock-up, non molded, prefabricated, [id number] 03/13 SHELIA LONDON [facility] Physical Therapy Education Orthotics Training Physical Therapy Education Orthotics Training 69700 03/13 SHELIA LONDON [facility] Non-Physician Phone Call To Patient/Provider Brief (5-10min) Non-Physician Phone Call To Patient/Provider Brief (5-10min) 93979 01/17 SHERON RUSHING [facility] Medical Nutrition Therapy Group (2 or More Individual(s)) Medical Nutrition Therapy Group (2 or More Individual(s)) 67723 08/15 JEFF WALKER [facility] Non-Physician Phone Call To Patient/Provider Brief (5-10min) Non-Physician Phone Call To Patient/Provider Brief (5-10min) 79456 03/14 SHERON RUSHING TCON: 1 unit of service to equal 10 min; time spent including encounter set up, chart research, attempt to reach patient, advising patient of results/medicat ions, answering patient questions, patient education and documentation. [facility] 3-D Rendering Of Ultrasound 3-D Rendering Of Ultrasound 73847 11/18 SANCHEZ NAIR [facility] Non-Physician Phone Call To Pt/Provider Lengthy (21-30 min) Non-Physician Phone Call To Pt/Provider Lengthy (21-30 min) 35695 10/13 SHERON RUSHING [facility] Medical Nutrition Therapy Group (2 or More Individual(s)) Medical Nutrition Therapy Group (2 or More Individual(s)) 14715 05/12 GINA PLATA DoD A e ment & Intervention Blood Pre ure Measured Assessment & Intervention Blood Pressure Measured 04/25 GWEN MANCUSO 2 units of service to equal 30 min; time spent including encounter set up, chart research, medication review, triage H/P, relax time, monitor BP, results, answering patient questions, advising provider, and documentation in [facility] DoD A e ment & Intervention Blood Pre ure Measured Assessment & Intervention Blood Pressure Measured 04/20 TIM CRANE [facility] Holter Monitor 24-Hour Holter Monitor 24-Hour 60506 09/30 GERA RAUSCH [facility] Cardiac Stre Test, Phys. Supervision, Interp. And Report Cardiac Stress Test, Phys. Supervision, Interp. And Report 52024 09/[address] [facility] 3-D Rendering Of Ultrasound 3-D Rendering Of Ultrasound 50028 09/[address] [facility] Spectacles Services Fitting Bifocals (Not For Aphakia) Spectacles Services Fitting Bifocals (Not For Aphakia) 84384 09/24 [facility] Determination Of Refractive State Determination Of Refractive State 68401 09/24 [facility] Ophthalmological Prior Patient Start Comprehensive Care Ophthalmological Prior Patient Start Comprehensive Care 15932 09/24 [facility] Biopsy Skin Each Additional Lesion Biopsy Skin Each Additional Lesion 04476 03/31 ORALIA BAEZ [facility] Biopsy Skin Biopsy Skin 65292 03/31 ORALIA BAEZ [facility] EMG Limited Study EMG Limited Study 23522 03/12 ORALIA BAEZ [facility] Occupational Therapy Evaluation Occupational Therapy Evaluation 18372 01/29 FIONA BURGESS [facility] Repair And Refitting Gla es (Not For Aphakia) Repair And Refitting Glasses (Not For Aphakia) 64660 01/29 PAUL HUFF The following repair/adjustme nts were performed: Replace/tighten eyewire/catholic screws Check/correct frame alignment/facef orm Clean lenses [facility] Psychiatric Evaluation Review of Records and Reports Psychiatric Evaluation Review of Records and Reports 36241 08/08 DANIELA MCCOLLUM [facility] Occupational Therapy Re-Evaluation Occupational Therapy Re-Evaluation 67235 04/03 RUTH BHAT [facility] Vestibular Evaluation With Recording - Caloric Testing Vestibular Evaluation With Recording - Caloric Testing 21047 03/13 GLORIA FLETCHER Caloric Tests: Air caloric tests x 4 (right ear, cool/warm & left ear, cool/warm). [facility] Vestibular Evaluation With Recording Vestibular Evaluation With Recording 04836 03/13 GLORIA FLETCHER [facility] Orthopedic Splinting Elbow Orthopedic Splinting Elbow 78435 03/10 RUTH BHAT [facility] Occupational Therapy Evaluation Occupational Therapy Evaluation 66104 03/10 RUTH BHAT [facility] Tympanometry With Reflex Threshold Measurements Tympanometry With Reflex Threshold Measurements 67419 02/18 RHINA SHAFER Threshold Audiogram (Pure Tone) Threshold Audiogram (Pure Tone) 41985 02/18 RHINA SHAFER Audiometry Speech Threshold With Discrimination Audiometry Speech Threshold With Discrimination 80458 02/18 RHINA SHAFER Modalities Electrical Stimulation Modalities Electrical Stimulation 77227 01/23 FRANCES ROSSIIA*INAC T Y [facility] Physical Therapy Neuromuscular Re-education Physical Therapy Neuromuscular Re-education 65472 01/23 FRANCES ROSSIIA*INAC T Y [facility] Physical Therapy Neuromuscular Re-education Physical Therapy Neuromuscular Re-education 10829 01/22 LACEY MICHAELS NOLAN*INAC T Y [facility] Physical Therapy Neuromuscular Re-education Physical Therapy Neuromuscular Re-education 78212 01/14 LACEY MICHAELS NOLAN*INAC T Y [facility] Physical Therapy Neuromuscular Re-education Physical Therapy Neuromuscular Re-education 05806 01/13 LACEY MICHAELS NOLAN*INAC T Y [facility] Physical Therapy Neuromuscular Re-education Physical Therapy Neuromuscular Re-education 83176 01/01 FRANCES ROSSIIA*INAC T Y [facility] Physical Therapy Neuromuscular Re-education Physical Therapy Neuromuscular Re-education 84229 12/26 LACEY MICHAELS NOLAN*INAC T Y [facility] Physical Therapy Neuromuscular Re-education Physical Therapy Neuromuscular Re-education 98193 12/24 LACEY MICHAELS NOLAN*INAC T Y [facility] Physical Therapy Neuromuscular Re-education Physical Therapy Neuromuscular Re-education 92057 11/28 FRANCES ROSSIIA*INAC T Y [facility] Physical Therapy Neuromuscular Re-education Physical Therapy Neuromuscular Re-education 18118 11/26 LACEY MICHAELS NOLAN*INAC T Y [facility] Physical Therapy Neuromuscular Re-education Physical Therapy Neuromuscular Re-education 57773 11/21 FRANCES ROSSIIA*INAC T Y [facility] Physical Therapy Neuromuscular Re-education Physical Therapy Neuromuscular Re-education 60824 11/19 LACEY MICHAELS NOLAN*INAC T Y [facility] Physical Therapy Neuromuscular Re-education Physical Therapy Neuromuscular Re-education 74128 11/14 LACEY MICHAELS NOLAN*INAC T Y [facility] Physical Therapy Neuromuscular Re-education Physical Therapy Neuromuscular Re-education 39844 11/12 FRANCES ROSSIIA*INAC T Y [facility] Physical Therapy Neuromuscular Re-education Physical Therapy Neuromuscular Re-education 36258 10/30 FRANCES ROSSIIA*INAC T Y [facility] Physical Medicine Physical Therapy Re-Evaluation Physical Medicine Physical Therapy Re-Evaluation 57288 10/30 NOLAN ROSSI*INAC T Y [facility] Spectacles Services Fitting Bifocals (Not For Aphakia) Spectacles Services Fitting Bifocals (Not For Aphakia) 15053 09/30 TIM SCHAEFER Determination Of Refractive State Determination Of Refractive State 82590 09/30 TIM SCHAEFER Visual Miranda Test Limited Examination Visual Miranda Test Limited Examination 53451 09/30 TIM SCHAEFER Ophthalmological Sensorimotor Exam Ophthalmological Sensorimotor Exam 91082 09/30 TIM SCHAEFER Ophthalmological New Patient Start Comprehensive Care Ophthalmological New Patient Start Comprehensive Care 34079 09/30 TIM SCHAEFER Non-Physician Phone Call To Patient/Provider Brief (5-10min) Non-Physician Phone Call To Patient/Provider Brief (5-10min) 82927 09/16 USHA OCONNOR Vestibular Evaluation & Recording Computerized Dynam Posturo 09/12 NOLAN ROSSI*INAC T Y [facility] Physical Therapy Neuromuscular Re-education Physical Therapy Neuromuscular Re-education 51855 09/12 NOLAN ROSSI*INAC T Y [facility] Physical Medicine Physical Therapy Evaluation Physical Medicine Physical Therapy Evaluation 13797 09/12 FRANCES ROSSIIA*INAC T Y [facility] Non-Physician Phone Call To Patient/Provider Brief (5-10min) Non-Physician Phone Call To Patient/Provider Brief (5-10min) 06905 08/28 WINSTON ROBBINS [facility] Non-Physician Phone Call To Patient/Provider Brief (5-10min) Non-Physician Phone Call To Patient/Provider Brief (5-10min) 69585 02/04 GARY QUESADA [facility] Non-Physician Phone Call To Patient/Provider Brief (5-10min) Non-Physician Phone Call To Patient/Provider Brief (5-10min) 66406 01/16 GARY QUESADA [facility] Threshold Audiogram (Pure Tone) Threshold Audiogram (Pure Tone) 76703 07/01 GLORIA FLETCHER [facility] Hearing Aid Check - Binaural Hearing Aid Check - Binaural 35849 07/01 GOLRIA FLETCHER [facility] Non-Physician Phone Call To Patient/Provider Brief (5-10min) Non-Physician Phone Call To Patient/Provider Brief (5-10min) 30096 04/08 WERNER IZAGUIRRE Patient was listed as being a no-show for an appt in the [facility] family practice clinic at 0740 hours with Dhiraj Aparicio. Attempted to contact patient on his home contact number [phone] without success. Attempted to contact patient on his cell phone X3 without success. I contacted the fuel oil clerk at the number listed as his duty phone and she stated that he is currently on vacation and will not be back till Monday. Message left with fuel oil clerk asking patient to reschedule this appt. [facility] Non-Physician Phone Call To Patient/Provider Brief (5-10min) Non-Physician Phone Call To Patient/Provider Brief (5-10min) 39235 03/23 AARON AJ Patient was contacted on the 23 of March at 1300. Identification was verified. Patient was informed that his referral and prescription are in. Patient was also told to go to lab to have his blood drawn for BMP. [facility] Special ENT Services Binocular Microscopy Special ENT Services Binocular Microscopy 14640 11/17 ELY THRASHER [facility] Physical Medicine Physical Therapy Re-Evaluation Physical Medicine Physical Therapy Re-Evaluation 74489 11/17 STEVENSON QUIROZ [facility] Physical Medicine Physical Therapy Evaluation Physical Medicine Physical Therapy Evaluation 30261 10/23 TARA RICE [facility] Electroacoustic Evaluation For Hearing Aid Electroacoustic Evaluation For Hearing Aid 32979 10/20 THALIA GORMAN Electroacoustic Evaluation For Hearing Aid Electroacoustic Evaluation For Hearing Aid 48999 09/21 THALIA GORMAN [facility] Ear impre ion, each 07/07 THALIA GORMAN [facility] Electroacoustic Evaluation For Hearing Aid Electroacoustic Evaluation For Hearing Aid 86290 07/07 THALIA GORMAN [facility] Acoustic Reflex Testing 07/06 THALIA GORMAN Evoked Otoacoustic Nan ions Limited 07/06 THALIA GORMAN [facility] Comprehensive Audiometry Comprehensive Audiometry 34426 07/06 THALIA GORMAN [facility] Removal of sutures; by a physician other than the physician who originally closed the wound TONYA GILES [facility] Physical Therapy Education Orthotics Training Physical Therapy Education Orthotics Training 77441 TIM REED [facility] Immunization Administration One Vaccine Immunization Administration One Vaccine 48108 GALEN SALAZAR [facility] Ophthalmological New Patient Start Comprehensive Care Ophthalmological New Patient Start Comprehensive Care 01631 JAVIER HAMLIN Determination Of Refractive State Determination Of Refractive State 13951 JAVIER HAMLIN Spectacles Services Fitting Bifocals (Not For Aphakia) Spectacles Services Fitting Bifocals (Not For Aphakia) 93330 JAVIER HAMLIN [facility] No data available for this section Ambulatory Pharmacy Social History Combined list of available smoking, tobacco, and other social history from [facility] Defense and [facility] facilities. Social History Type Response Date Comment [facility] e Tobacco smoking status NHIS VA-TOBACCO FORMER USER 03/20/2024 [facility] History of tobacco use VA-TOBACCO QUIT 1 5 YRS OR MORE 03/20/2024 [facility] History of tobacco use VA-TOBACCO FORMER USER 01/18/2023 [facility] History of tobacco use VA-TOBACCO FORMER USER 01/19/2022 [facility] History of tobacco use VA-TOBACCO FORMER USER 04/16/2021 [facility] History of tobacco use VA-TOBACCO QUIT 1 5 YRS OR MORE 03/11/2020 [facility] This section is an empty social history section. DoD Assessment and Plan Combined list of future care activities from Department of Defense and Veterans Affairs facilities (e.g., assessment and plan notes, appointments, orders, and referrals). Additional future care activities may be listed in the Plan of Care section. Result Assessment and Plan Date Source Assessment and Plan No data available for this section 10/22/2024 Ambulatory Pharmacy Plan of Care List of future care activities from Department of Veterans Affairs facilities. Additional future care activities may be listed in the Assessment and Plan section. Date/Time Care Activity Care Activity Detail Facili ty 10/25/2024 AMBULATORY - MEDICINE AMBULATORY - MEDICI [facility] Functional Status Combined list of recent functional and cognitive assessments recorded at [facility] and [facility] (OR).OR Functional [place] Measurement (FIM) Scale: 1 = Total Assistance (Subject = 0% +), 2 = Maximal Assistance (Subject = 25% +), 3 = Moderate Assistance (Subject = 50% +), 4 = Minimal Assistance (Subject = 75% +), 5 = Supervision, 6 = Modified [place] (Device), 7 = Complete [place] (Timely, Safely). Assessment Date/Time Source Assessment Type Assessment Skill Assessment Score Assessment Details No data available for this section
--- OUTSIDE RECORDS SUMMARY | 2024-10-22 08:13 | XMS_ITS | Encounter Summary ---
Author Name [facility] [facility] [place] Address [address] [place] [address] Care Team Providers Care Case Assistant Name Role Phone MELITON DOMINGUEZ Primary Care [...] PART A Dec 10, 2017 PART A [id number] LERUM,ELENI D PATIENT MEDICARE (WNR) MEDICARE (M) PART A Dec 10, 2017 PART A [id number] [phone] LERUM,ELENI D PATIENT MEDICARE (WNR) MEDICARE (M) PART B Dec 10, 2017 PART B [id number] [phone] LERUM,ELENI D PATIENT MEDICARE (WNR) MEDICARE (M) PART B Dec 10, 2017 PART B [id number] LERUM,ELENI D PATIENT MEDICARE (WNR) MEDICARE (M) PART A Dec 10, 2017 PART A [id number] [phone] LERUM,ELENI D PATIENT MEDICARE (WNR) MEDICARE (M) PART B Dec 10, 2017 PART B [id number] [phone] LERUM,ELENI D PATIENT MEDICARE (WNR) MEDICARE (M) PART A Dec 10, 2017 PART A [id number] [phone] LERUM,ELENI D PATIENT MEDICARE (WNR) MEDICARE (M) PART B Dec 10, 2017 PART B [id number] [phone] LERUM,ELENI D PATIENT Selected Encounter This section includes the information on record at [place] for the Encounter. Date/Time Encounter Type Encounter Description Reason Provider Source October 11, 2024 12:39 PM Outpatient Encounter TELEPHONE TRIAGE SHARON HERNANDEZ IHE Encounter Template Text not used by [place] Plan of Treatment: Future Appointments (+ 6 months) and Future Tests (+/- 45 days) The Plan of Treatment section includes future care activities for the patient [facility] [place] [facility] This section includes future appointments and future orders which are active, pending or scheduled. Future Appointments This section includes appointments that were scheduled to occur 6 months from the date of the Encounter, up to a maximum of 20 appointments. The data comes from all [facility]. Appointment Date/Time Appointment Type Appointme nt Facility Name October 15, 2024 03:00 PM AMBULATORY - MEDICINE [facility] October 18, 2024 10:30 AM AMBULATORY - SURGERY [facility] October 25, 2024 10:00 AM AMBULATORY - MEDICINE [facility] October 29, 2024 01:30 PM AMBULATORY - REHAB MEDICIN E [facility] Nov 13, 2024 09:00 AM AMBULATORY - REHAB MEDICIN E [facility] Dec 26, 2024 01:30 PM AMBULATORY - NEUROLOGY [facility] Jan 27, 2025 09:30 AM AMBULATORY - [facility]AB [facility] Active, Pending, and Scheduled Orders This section includes a listing of several types of active, pending, and scheduled orders, including clinic medications orders, diagnostic test orders, procedure orders and consult orders; where the start date of the order is 45 days before the date of the Encounter or 45 days after the date of theEncounter. The data comes from all [facility]. Test Date/Time Test Type Test Details Facility Name Nov 15, 2024 12:00 AM Laboratory - Chemi stry Order CBC & DIFF BLOOD SP ONCE [facility] Nov 15, 2024 12:00 AM Laboratory - Chemi stry Order LIPID PANEL,NON-FASTING PLASMA SP [facility] Nov 15, 2024 12:00 AM Laboratory - Chemi stry Order BASIC METABOLIC PANEL+MG PLASMA SP [facility] Social History: Smoking Status (Most current) and Tobacco Use (All prior to encounter date) This section includes the most current, and the historical, smoking and tobacco- related health factors from the [facility] where the Encounter took place. Current Smoking Status This section includes the most current smoking, or tobacco-related health factor, from the [place] facility where the Encounter took place. Date/Time Current Smoking Status Comment Facil ity Mar 20, 2024 11:00 AM VA-TOBACCO FORMER USER [facility] Tobacco Use History This section includes a history of the smoking, or tobacco-related health factors, that were collected on or before the date of the Encounter. The data comes from the [place] facility where the Encounter took place. Date/Time Smoking Status/Tobacco Use Comment F acility Mar 20, 2024 11:00 AM VA-TOBACCO QUIT 15 YRS OR MORE [facility] Jan 18, 2023 10:00 AM VA-TOBACCO FORMER USER [facility] Jan 18, 2023 10:00 AM VA-TOBACCO QUIT 15 YRS OR MORE [facility] Jan 19, 2022 01:00 PM VA-TOBACCO FORMER USER [facility] Jan 19, 2022 01:00 PM VA-TOBACCO QUIT 15 YRS OR MORE [facility] Apr 16, 2021 03:30 PM VA-TOBACCO FORMER USER [facility] Apr 16, 2021 03:30 PM VA-TOBACCO QUIT 15 YRS OR MORE [facility] Mar 11, 2020 09:00 AM VA-TOBACCO FORMER USER [facility] Mar 11, 2020 09:00 AM VA-TOBACCO QUIT 15 YRS OR MORE [facility] Radiology Reports: +/- 30 days of [...] the Encounter. The data comes from all [facility]. Date/Time Radiology Report Provider Source October 15, 2024 03:22 PM LUMBAR SPINE MIN 4 VIEWS: REED WALLACE [id number] -1950 M Exm Date: OCTOBER 15, 2024@15:22 Req Phys: MELITON DOMINGUEZ Pat Loc: [facility] PACT IVORY 4E (Req'g Loc) Img Loc: MAIN X-RAY Service: [place] [address] (Case [id number] COMPLETE) LUMBAR SPINE MIN 4 VIEWS (RAD Detailed) CPT:62842 Reason for Study: severe LBP Clinical History: h/o parkinson, c/o severe low back pain, left sided radiating across the back. No recall of injury. Please eric anderson is waiting in clinic My pager number on record is: [phone]. I confirm that the pager number/cell phone number above is correct for reporting critical results. Trainees only: Enter your staff provider's info here: LAST CREATININE 0.7 (03/20/24) Report Status: Verified Date Reported: OCTOBER 15, 2024 Date Verified: OCTOBER 15, 2024 Cat Hooker E-Sig:/ES/EWRNER SY MD Report: EXAMINATION: LUMBAR SPINE MIN [...] Primary Interpreting Staff: WERNER SY MD, RADIOLOGIST (Cat Hooker) /RTS WERNER SY [facility] Oct 03, 2024 10:06 AM US AORTA (P): REED WALLACE [id number] -1950 M Exm Date: OCT 03, 2024@10:06 Req Phys: MELITON DOMINGUEZ Pat Loc: [facility] PT MARY OJ D (Req'g Loc) Img Loc: Ultrasound Imaging Service: [place] [address] (Case [id number] COMPLETE) US RETROPERITONEAL LIMITED (US Detailed) CPT:23770 Reason for Study: f/u illiac aneurysm Clinical History: [place] IS NOT under investigation for COVID-19 or is COVID-19 negative f/u illiac aneurysm for interval change Responsible provider name and phone number to notify for critical findings if other than user placing the order and pager listed below: User placing orders pager: [phone] LAST CREATININE 0.7 (08/22/23) Report Status: Verified Date Reported: OCT 03, 2024 Date Verified: OCT 03, 2024 Cat Hooker E-Sig:/ES/DORINDA MEDEROS Report: Abdominal Aorta Ultrasound Examination [...] PATIENT'S FINDINGS ENDS HERE. Recommendations from the [place] V[facility] Surgery Department, updated 2023: Small infrarenal [...] AM Primary Interpreting Staff: DORINDA MEDEROS, RADIOLOGIST (Cat Hooker) Primary Interpreting Resident: ANIYAH HAIDER DO, FISH BAIT PICKER /DORINDA THOMAS [facility] Encounter Notes: All associated encounter notes This section contains the clinical notes associated to the Encounter. Date/Time Encounter Note(s) Provider Source October 11, 2024 12:39 PM RN PROGRESS NOTE: LOCAL TITLE: CCC: CLINICAL TRIAGE STANDARD TITLE: RN PROGRESS NOTE DATE OF NOTE: OCTOBER 11, 2024@12:39:25 ENTRY DATE: OCTOBER 11, 2024@12:39:25 AUTHOR: FEROZ HERNANDEZ COSIGNER: URGENCY: STATUS: COMPLETED Caller Verification Caller/Recipient Relation to Patient: Self Caller Name: REED WALLACE Emergency Contact: REJI MONDAY Triage Summary Conducted triage/discussed symptoms Pain Score: 0 (No Pain) Utilized the Triage Tool: Yes Chief Complaint: Back Pain System WHEN: Within 2 Weeks Nurse's Recommendation / WHEN: Within 2 Weeks System WHERE: Clinic Nurse's Recommendation / WHERE: [facility] Patient Disposition Patient/Caregiver agrees to plan of care: Yes Nursing Plan and Disposition Referred Patient for In-Person Appt Transferred patient to Sched & Admin-Apt Nurse Summary Nurse Summary: . PATIENT CONCERN/DURATION/ONSET: [place] c/o one week of intermittent shooting lower left back pain that radiates to right side when changing positions like from sitting to standing. Vet states no pain at present time as has been standing. Denies injury, urinary or bowel problems. WHAT HAS PATIENT TRIED TO TREAT THE SYMPTOMS: no home measures HISTORY/PREVIOUS TREATMENT: Parkinson's WHAT IS PATIENT GOAL FOR THE CALL: Advice for care; Was Care Now considered (TELE or VVC)? no LOGISTICS PLANNER DISPOSITION: Recommended triage is for further interaction with PACT within >24 hours because of duration of ongoing intermittent pain. Appointment set for 1499 6 per personnel scheduler. Advised ER this weekend and prior to appointment if any worsening pain that is unmanageable as discussed with . Vet verbalizes understanding of the plan of care and Vet in agreement with plan of care. Best contact for is (Verified). [phone] This note was created by a [address] driveway sealer. Please do not alert this nurse by adding as a signer for future communications. Alerts are not monitored by this user, please reach out to [facility] Leadership instead if indicated. Clinical Contact Center Codes Clinic/Location: [address] [facility] RN Decision Support System Output: Triage Complete Triage Date: 10/11/2024, 12:27 PM Triage Note: Decision Support Tool Used: [facility] Phone Triage 11 Oct 2024 17:22:24 +0000 [facility] Demographics 73 y/o Male Results CC: Back Pain Software suggested: Within 2 Weeks Software suggested follow-up location: Clinic, consider virtual care Values and Measures Duration of CC: 1 Weeks Positive Responses HPI: back pain, lower back HPI: back pain, moderate to severe, duration longer than 2 days VS: temperature not taken Negative Responses Denies: HPI: abdominal pain, with back pain Denies: HPI: back injury, recent Denies: HPI: back pain, duration longer than 1 month Denies: HPI: back pain, severe Denies: HPI: back pain, worsening Denies: HPI: cancer Denies: HPI: difficulty walking Denies: HPI: dysuria Denies: HPI: hematuria Denies: HPI: increased urinary frequency Denies: HPI: leg numbness, unilateral Denies: HPI: leg weakness, bilateral, new Denies: HPI: leg weakness, unilateral Denies: HPI: numbness, groin or legs, new Denies: HPI: pain, radiation down leg Denies: HPI: skin erythema, back, worsening Denies: HPI: skin lump, swollen, painful, over the back Denies: HPI: skin swelling, back, worsening Denies: HPI: urinary incontinence Denies: HPI: urinary urgency, constant Denies: HPI: vomiting Denies: MEDS: chemotherapy Denies: PMH: abdominal aortic aneurysm Denies: PMH: diabetes Denies: PMH: high cholesterol Denies: PMH: HIV positive Denies: PMH: kidney stone Denies: PMH: UTI Denies: PSH: organ transplant IMPORTANT: This note was created by [facility] Clinical Contact Center staff. Please do not alert the staff member by adding them as a signer for future communications. Alerts are not monitored by this user. /grupo/ Feroz Hernandez BA, RN VISN 23 [facility] RN Signed: 10/11/2024 12:39 FEROZ HERNANDEZ [facility]
== END 2024-10-22 09:10 | disposition home or self-care (01) ==
PROVIDERS: Emergency Provider Family Medicine
DX: M54.50 Low back pain, unspecified (principal); M53.3 Sacrococcygeal disorders, not elsewhere classified
CPT/HCPCS: 72131; 99284; A9270